=== PATIENT | male | born 1945 | race Caucasian/White ===

== ENCOUNTER 2022-05-19 10:10 | Outpatient (CLI) | payer MEDICARE, SELFPAY ==
--- NOTE | 2022-05-19 10:42 | ECG_ITS ---
Measurements Intervals [place] Rate: 54 P: 43 IN: 162 QRS: 32 QRSD: 106 T: 246 QT: 420 QTc: 400 Interpretive Statements SINUS BRADYCARDIA WITH OCCASIONAL VENTRICULAR PREMATURE COMPLEXES LOW QRS VOLTAGE IN EXTREMITY LEADS [QRS DEFLECTION < 0.5 mV IN LIMB LEADS] NONSPECIFIC T-WAVE ABNORMALITY NO PREVIOUS ECG AVAILABLE FOR COMPARISON Electronically Signed On 05-19-2022 12:05:53 CDT by Ted Avendaño M.D.
[2022-05-19 11:24] LABS: Albumin Level 4.2 g/dL (3.5-5.1); Estimated Glomerular Filt Rate > 60; Glucose 100 mg/dL (65-110)
== END 2022-05-19 10:11 | disposition home or self-care (01) ==
PROVIDERS: Visit Provider Orthopaedic Surgery
DX: Z01.818 Encounter for other preprocedural examination (principal); M17.11 Unilateral primary osteoarthritis, right knee; R94.31 Abnormal electrocardiogram [ECG] [EKG]
CPT/HCPCS: 36415; 82040; 82565; 82947; 93005

== ENCOUNTER 2022-06-16 09:58 | Outpatient (CLI) | payer MEDICARE, SELFPAY ==
[2022-06-16 11:25] LABS: Basophils Percent Auto 0.5 % (0.2-1.2); Eosinophils Absolute Auto 0.2 K/mm3 (0-0.3); Eosinophils Percent Auto 1.8 % (0-4.4); Hematocrit 49.3 % (42.0-52.0); Hemoglobin 16.7 g/dL (14.0-18.0); Immature Granulocyte Absolute 0.02 K/mm3 (0.00-0.031); Immature Granulocyte Percent A 0.2 % (0-0.5); Lymphocytes Absolute Auto 2.69 K/mm3 (0.9-3.2); Lymphocytes Percent Auto 30.3 % (18.3-44.2); Mean Corpuscular HGB Conc 33.9 g/dl (32-36); Mean Corpuscular Hemoglobin 32.4 pg (26-34); Mean Corpuscular Volume 95.5 fl (80-100); Mean Platelet Volume 11.3 fl (7.4-10.4); Monocytes Absolute Auto 0.7 K/mm3 (0.1-0.6); Monocytes Percent Auto 7.7 % (2.6-8.5); Neutrophils Absolute Auto 5.3 K/mm3 (1.3-6.7); Neutrophils Percent Auto 59.5 % (45.5-73.1); Platelet Count Result 234 k/mm3 (150-375); Red Blood Count 5.16 M/mm3 (4.6-6.20); Red Cell Distribution Width 13.3 % (11.5-14.5); White Blood Count 8.9 K/mm3 (4.5-10.0)
[2022-06-16 11:34] LABS: Urine Cotinine NEGATIVE
== END 2022-06-16 09:59 | disposition home or self-care (01) ==
PROVIDERS: PCP Internal Medicine; Visit Provider Orthopaedic Surgery
DX: Z01.812 Encounter for preprocedural laboratory examination (principal); M17.11 Unilateral primary osteoarthritis, right knee; Z51.81 Encounter for therapeutic drug level monitoring; Z79.899 Other long term (current) drug therapy
CPT/HCPCS: 80307; 83036; 85025; 87081

== ENCOUNTER 2022-07-11 00:10 | Day surgery (SDC) | payer MEDICARE, SELFPAY ==
[2022-06-16 10:14] VITALS: BMI 30.2
--- NOTE | 2022-06-16 10:52 | PC.NURSE ---
Addendum entered by Clau Sotelo RN 06/16/22 10:57: TOTAL JOINT CLASS 07/05/22 AT 10AM Addendum entered by Clau Sotelo RN 06/16/22 10:55: HOLD IBUPROFEN 7 DAYS PRE OP. LAST DOSE 07/03/22. MAY TAKE TYLENOL IF NEEDED FOR PAIN Original Note: Report to the Outpatient Waiting Room, entrance under the green pavilion located off [address], at time _0830 on date _07/11/22 . OR Time: _1030 . Time changes happen often and if your time is changed the preop area will call you the afternoon before. - You and your visitor will be asked to self-screen and do not enter if you have any COVID symptoms. - Only one visitor and NO children visitors are allowed at this time. - The patient visitor is requested to leave or wait in car when not with patient due to restrictions. - A mask is required within the hospital. Patients may have clear liquids (water, carbonated beverages, clear teas, apple juice) until 3 hours prior to surgery with a maximum of 20 ounces. - No food from midnight until time of surgery - Infants may have breast milk until 4 hours before surgery, formula 6 hours prior to surgery. - Children will be allowed to drink immediately following surgery. If applicable, please bring a bottle or sippy cup to assist with drinking. Juice, water, soda, and popsicles are readily available. For infants on formula, please bring formula the day of surgery. Pacifiers are allowed. Take the following medications with a SIP of water the morning of surgery: ___PROPRANOLOL Medications to discontinue per physician __ALL VITAMINS AND SUPPLEMENTS 3 DAYS PRE OP Date to take last dose__07/07/22 Please no make-up, nail slovenian, hairspray, perfume, deodorant, or body powder the day of surgery. No jewelry (including any body piercings) or valuables the day of surgery, leave them at home. Please take a shower or bath the night before, or the morning of, surgery with an antibacterial soap. Wear comfortable, loose fitting clothing. Children are encouraged to wear pajamas. - Jewelry must be removed prior to entering the operating room. Rings and piercings that are not removed may be cut off. - The hospital will not accept responsibility for valuables. - Please leave all valuables, including medications, at home the day of surgery. If you are going home after surgery, a licensed equipment driver must drive you home. - NO public transportation without another adult. - We recommend that an adult stay with you for 24 hours following discharge. - We also recommend that you do not drive, make important decision, drink alcoholic beverages, or take any drugs that were not prescribed by your health care provider for at least 24 hours after your discharge time. For Pediatric surgeries, we recommend two adults accompany the child home (only one inside the building at this time). Follow any additional instructions given to you from your surgeon. If you or anyone in your household have experienced Covid symptoms in the past week, please notify your surgeon or the nurse liaison at the phone number below for possible testing. VERBAL AND WRITTEN instructions given to ___PATIENT and asked if any additional questions and then verbalized understanding. Patient advised to call surgeon office or pre surgery nurse liaison [phone] if any additional questions.
[2022-06-16 11:06] VITALS: BP 159/86; PULSE 52; RESP 18; TEMP 37.1; O2SAT 98
[2022-07-11] VITALS (13 sets, daily range): BP systolic 153–177; BP diastolic 66–104; PULSE 49–77; RESP 10–20; TEMP 36.4–37.1; O2SAT 88–100
--- NOTE | ~2022-07-11 | XR_ITS ---
EXAMINATION: XR knee RT 2V DATE: 07/11/2022 13:24 INDICATION: Postoperative evaluation following right total knee arthroplasty. TECHNIQUE: Anteroposterior and lateral views of the right knee were obtained. COMPARISON: 05/18/2022 FINDINGS: Right total knee arthroplasty with patellar resurfacing appears well seated and in near anatomic alig nment. No fractures identified. Surgical drain and expected postoperative subcutaneous and intra-art icular gas. IMPRESSION: 1. Right total knee arthroplasty, negative for postoperative purposes. Reviewed, dictated and finalized at location B.
--- NOTE | 2022-07-11 07:24 | WPDHPUPDATE1 ---
History and Physical Update Update Date/Time: 07/11/22 07:24 History and Physical has been reviewed, including an updated exam of the patient. There are NO changes in the patient's condition. Risks, benefits, and alternatives have been discussed and questions answered. Patient agrees to proceed with procedure.
[2022-07-11] MEDS: ACETAMINOPHEN 500 MG TABLET 1000 MG PO (08:55)
[2022-07-11] MEDS: LACTATED RINGERS 1,000 ML 30 ML IV CONT ×2 (09:00→13:08)
--- NOTE | 2022-07-11 09:33 | WPDANESEPPF ---
Anes - Initial Pre Proc Eval Procedure: Operation Date: 07/11/22 10:30 Proposed Procedures p Right Total Knee Arthroplasty - Humberto Manjarrez MD Date/Time: 07/11/22 09:33 Surgeon: Humberto Manjarrez MD Pre Op Diagnosis: primary OA right knee Patient Data Age: 77 Gender: M Height: 1.75 m Weight: 91.2 kg Last Vital Signs Temp 36.4 C 07/11/22 09:10 Pulse 49 L 07/11/22 09:10 Resp 16 07/11/22 09:10 BP 162/82 H 07/11/22 09:10 Pulse Ox 97 07/11/22 09:10 O2 Del Method Room Air 07/11/22 09:10 Allergies Allergy/AdvReac Type Severity Reaction Status Date / Time meperidine AdvReac Unknown Nausea and Verified 07/11/22 08:44 Vomiting Home Medications Medication Instructions Recorded Confirmed Type apple cider vinegar 500 mg tablet 500 mg PO DAILY 06/16/22 07/11/22 History ascorbic acid (vitamin C) 500 mg 500 mg PO DAILY 06/16/22 07/11/22 History capsule cholecalciferol (vitamin D3) 50 50 mcg PO DAILY 06/16/22 07/11/22 History mcg (2,000 unit) capsule cyanocobalamin (vitamin B-12) 1,000 mcg PO DAILY 06/16/22 07/11/22 History 1,000 mcg tablet magnesium 100 mg capsule 100 mg PO DAILY 06/16/22 07/11/22 History omega-3 fatty acids 1,000 mg PO DAILY 06/16/22 07/11/22 History oxybutynin chloride 10 mg 10 mg PO DAILY 06/16/22 07/11/22 History tablet,extended release 24 hr propranolol 10 mg tablet 10 mg PO DAILY 06/16/22 07/11/22 History pyridoxine (vitamin B6) 100 mg 100 mg PO DAILY 06/16/22 07/11/22 History tablet quercetin 500 mg capsule 500 mg PO DAILY 06/16/22 07/11/22 History saw palmetto 160 mg capsule 160 mg PO DAILY 06/16/22 07/03/22 History vitamin C 30 mg-zinc citrate 1.1 1 tablet PO DAILY 06/16/22 07/03/22 History mg-elderberry 25 mg chewable tablet (Sambucus Elderberry) zinc 50 mg tablet 50 mg PO DAILY 06/16/22 07/03/22 History Patient hx anesthesia problems: none Family hx anesthesia problems: none Results Review: All pre-operative results and documents have been reviewed as part of the pre-operative evaluation. COUNTS INCLUDE 234 BEDS AT THE [facility] Past Medical History Medical History DVT (deep venous thrombosis) H/O cardiovascular stress test Hypertension Lung disease Nephropathy Primary osteoarthritis of right knee Surgical History Surgical History H/O meniscectomy of right knee (~1979) History of appendectomy (~1968) Hx of tonsillectomy (~1953) Family History Family History Mother Heart disease Arthritis Father Arthritis Heart disease Social History Social History Smoking packs per day: 3 Smoking cigarettes per day: 60.0 Years smoked: 4 Smoking pack-years: 12.00 Smoking status: Former smoker Tobacco type: cigarettes Smoking end date: 10/01/69 Additional smoking assessment comments: DENIES ANY FORM OF TOBACCO USE Alcohol intake: never Alcohol use details: 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 Informed Consent: The patient's anesthetic plan and its attendant risks and benefits were discussed with the patient/family/POA. Questions were solicited and answers provided to the satisfaction of the patient/family/POA.
[2022-07-11] MEDS: TRANEXAMIC ACID 1,000MG/ISO100 1,000 MG/100 ML BAG 200 MG IVPB (09:53)
[2022-07-11] MEDS: ceFAZolin 2 GM/D5W 50 ML 2 GM/50 ML BAG IVPB ×2 (10:28→18:10)
[2022-07-11] MEDS: GENTAMICIN BONE CEMENT REFOBACIN 1 EACH TOPICAL (10:53)
[2022-07-11] MEDS: TRANEXAMIC ACID 1,000 MG/10 ML AMPUL 1000 MG IV PUSH (12:35)
[2022-07-11] MEDS: fentaNYL CITRATE INJ (*CRX) 100 MCG/2 ML VIAL 25 MCG IV PUSH ×2 (13:25→13:31)
[2022-07-11] MEDS: SODIUM CHLORIDE 0.9% IV 1,000 ML 125 ML IV CONT (16:01)
[2022-07-11] MEDS: ONDANSETRON INJ 4 MG/2 ML VIAL IV PUSH (16:02)
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
[2022-07-11] MEDS: MELOXICAM 7.5 MG TABLET PO (17:34)
[2022-07-11] MEDS: ASPIRIN 81 MG ENTERIC TABLET PO (17:35)
[2022-07-11] MEDS: SENNA/DOCUSATE SODIUM TABLET 2 TAB PO (17:35)
[2022-07-11] MEDS: FAMOTIDINE 20 MG TABLET PO (20:35)
[2022-07-12] VITALS (7 sets, daily range): BP systolic 112–150; BP diastolic 69–83; PULSE 55–79; RESP 14–18; TEMP 36.4–36.9; O2SAT 94–100
[2022-07-12] MEDS: ceFAZolin 2 GM/D5W 50 ML 2 GM/50 ML BAG IVPB (01:21)
[2022-07-12 05:16] LABS: Basophils Percent Auto 0.3 % (0.2-1.2); Eosinophils Percent Auto 0.1 % (0-4.4); Hemoglobin 13.7 g/dL (14.0-18.0); Immature Granulocyte Absolute 0.04 K/mm3 (0.00-0.031); Immature Granulocyte Percent A 0.3 % (0-0.5); Lymphocytes Absolute Auto 2.23 K/mm3 (0.9-3.2); Lymphocytes Percent Auto 16.7 % (18.3-44.2); Mean Corpuscular HGB Conc 35.1 g/dl (32-36); Mean Corpuscular Hemoglobin 33.8 pg (26-34); Mean Corpuscular Volume 96.3 fl (80-100); Mean Platelet Volume 10.8 fl (7.4-10.4); Monocytes Absolute Auto 1.5 K/mm3 (0.1-0.6); Monocytes Percent Auto 11.4 % (2.6-8.5); Neutrophils Absolute Auto 9.5 K/mm3 (1.3-6.7); Neutrophils Percent Auto 71.2 % (45.5-73.1); Platelet Count Result 177 k/mm3 (150-375); Red Blood Count 4.05 M/mm3 (4.6-6.20); Red Cell Distribution Width 13.2 % (11.5-14.5); White Blood Count 13.4 K/mm3 (4.5-10.0)
[2022-07-12 05:29] LABS: Anion Gap 4 mmol/L (8-16); Blood Urea Nitrogen 17 mg/dL (9-20); Calcium 8.6 mg/dL (8.4-10.2); Carbon Dioxide 28 mmol/L (22-30); Chloride 103 mmol/L (98-107); Estimated CRCL calculation 69 ml/min; Estimated Glomerular Filt Rate > 60; Glucose 118 mg/dL (65-110); Potassium 4.2 mmol/L (3.4-5.0); Sodium 135 mmol/L (137-145)
--- NOTE | 2022-07-12 09:10 | WPDANESPN ---
Anes - Prog Note Post-Op Date/Time: 07/12/22 08:42 Cardiovascular status: normal Respiratory status: normal Airway patency: baseline Mental status: baseline Post-Op hydration status: normal Vital Signs: Last Vital Signs Temp 98.3 F 07/12/22 06:05 Pulse 55 L 07/12/22 06:05 Resp 16 07/12/22 06:05 BP 112/74 07/12/22 06:05 Pulse Ox 97 07/12/22 06:05 O2 Del Method Room Air 07/12/22 00:00 O2 Flow Rate 1 07/11/22 20:00 Pain Score (VAS): 2 I/O: Intake & Output 07/11/22 07/12/22 07/12/22 23:59 07:59 15:59 Intake Total 390 1800 Output Total 190 630 Balance 200 1170 Laboratory Tests 07/12/22 05:11 07/12/22 05:11 07/11/22 07/12/22 07/12/22 08:52 05:11 05:11 WBC 13.4 H RBC 4.05 L Hgb 13.7 L D Hct 39.0 L MCV 96.3 MCH 33.8 MCHC 35.1 RDW 13.2 Plt Count 177 MPV 10.8 H Immature Gran % (Auto) 0.3 Neut % (Auto) 71.2 Lymph % (Auto) 16.7 L [place] % (Auto) 11.4 H Eos % (Auto) 0.1 Baso % (Auto) 0.3 Lymph # (Auto) 2.23 [place] # (Auto) 1.5 H Eos # (Auto) 0.0 Baso # (Auto) 0.0 Abs Immat Gran (auto) 0.04 H Absolute Neuts (auto) 9.5 H Absolute Nucleated RBC 0.0 Nucleated RBC % 0.0 Sodium 135 L Potassium 4.2 Chloride 103 Carbon Dioxide 28 Anion Gap 4 L BUN 17 Creatinine 0.80 Estim Creat Clear Calc 69 Estimated GFR > 60 Glucose 118 H Calcium 8.6 Blood Type B Positive Antibody Screen Negative Post-procedural complaints: none Patient Feedback: Patient satisfied with anesthetic care. Other Findings: PNB receded during the night approx midnight.
[2022-07-12] MEDS: SENNA/DOCUSATE SODIUM TABLET 2 TAB PO (09:52)
[2022-07-12] MEDS: ASPIRIN 81 MG ENTERIC TABLET PO (09:52)
[2022-07-12] MEDS: PROPRANOLOL HCL 10 MG TABLET PO (09:52)
[2022-07-12] MEDS: FAMOTIDINE 20 MG TABLET PO (09:53)
[2022-07-12] MEDS: polyethylene glycoL 3350 17 GM POWD.PACK PO (09:54)
[2022-07-12] MEDS: predniSONE 5 MG TABLET PO (09:54)
[2022-07-12] MEDS: MELOXICAM 7.5 MG TABLET PO (09:54)
== END 2022-07-12 13:25 | disposition home or self-care (01) ==
LOC: ANHSURGERY 12:17 → ANH2MED 14:28
PROVIDERS: Physician Assistant Surgical; PCP Internal Medicine; Visit Provider Orthopaedic Surgery
PROC: (CPT 27447; principal; 2022-07-11 10:30)
DX: M17.11 Unilateral primary osteoarthritis, right knee (principal); I10 Essential (primary) hypertension; N28.9 Disorder of kidney and ureter, unspecified; J98.4 Other disorders of lung; Z86.718 Personal history of other venous thrombosis and embolism; Z87.891 Personal history of nicotine dependence
CPT/HCPCS: 27447; 36415; 73560; 80048; 80307; 83036; 85025; 86850; 86900; 86901; 87081; 97110; 97116; 97161; 97165; 97530; A9270; C1713; C1776; J0131; J0171; J0690; J1100; J1170; J1885; J2250; J2270; J2405; J2704; J2795; J3010; J7030; J7120; J7512

== ENCOUNTER 2022-08-29 14:55 | Inpatient (IN) | payer MEDICARE, SELFPAY ==
--- NOTE | ~2022-08-29 | US_ITS ---
EXAMINATION: US venous doppler LE RT DATE: 08/30/2022 10:21 INDICATION: Right lower limb edema. TECHNIQUE: Grayscale ultrasound images without and with compression and Doppler ultrasound images of the right lower extremity veins were obtained. COMPARISON: None. FINDINGS: The visualized portions of right common femoral vein, profunda (deep) femoral vein, femoral vein, pop liteal vein, peroneal veins, posterior tibial veins, and greater saphenous vein outflow are patent. T here is thrombus in right popliteal vein. There is a moderate-sized Marshall's cyst. There is a right kn ee joint effusion. IMPRESSION: 1. Deep vein thrombosis involving right popliteal vein. 2. Moderate-sized Marshall's cyst. 3. Right knee joint effusion. Reviewed, dictated and finalized at location A. [facility]
--- NOTE | 2022-08-29 15:07 | ADMGEN ---
This patient, Ricki Li Jr., was admitted to 2 Medical Room 254-01. Patient/family oriented to hospital policies and general routines including ID bracelet, bed and alarms, visiting hours, pain management, procedures, bathroom and other care routines, personal items, smoking policy, room service/diet, and visiting hours. Information on how to activate the Rapid Response Team has been discussed. Patient/Family are encouraged to report perceived risks to care and to ask questions if they do not understand what they are told or what they should do. Direct admit from Dr Manjarrez's office
[2022-08-29 15:57] VITALS: BMI 31.1
[2022-08-29 18:51] LABS: Basophils Percent Auto 0.3 % (0.2-1.2); Eosinophils Percent Auto 0.1 % (0-4.4); Hematocrit 41.9 % (42.0-52.0); Hemoglobin 14.2 g/dL (14.0-18.0); Immature Granulocyte Absolute 0.05 K/mm3 (0.00-0.031); Immature Granulocyte Percent A 0.4 % (0-0.5); Lymphocytes Absolute Auto 1.55 K/mm3 (0.9-3.2); Lymphocytes Percent Auto 12.2 % (18.3-44.2); Mean Corpuscular HGB Conc 33.9 g/dl (32-36); Mean Corpuscular Hemoglobin 32.8 pg (26-34); Mean Corpuscular Volume 96.8 fl (80-100); Mean Platelet Volume 10.7 fl (7.4-10.4); Monocytes Absolute Auto 1.3 K/mm3 (0.1-0.6); Monocytes Percent Auto 9.9 % (2.6-8.5); Neutrophils Absolute Auto 9.8 K/mm3 (1.3-6.7); Neutrophils Percent Auto 77.1 % (45.5-73.1); Platelet Count Result 255 k/mm3 (150-375); Red Blood Count 4.33 M/mm3 (4.6-6.20); White Blood Count 12.7 K/mm3 (4.5-10.0)
--- NOTE | 2022-08-29 19:00 | WPDCN ---
Assessment and Plan Assessment and plan (1) Infection of total right knee replacement: Code(s): T84.53XA - Infection and inflammatory reaction due to internal right knee prosthesis, initial encounter Status: Acute Assessment and Plan: He has been started on empiric cefepime and vancomycin; synovial fluid gram stain has yet to be completed. Culture pending. (2) Hypertension: Code(s): I10 - Essential (primary) hypertension Status: Acute Assessment and Plan: Blood pressures were reviewed and they are stable. Home medications will be reviewed and resumed as appropriate. (3) History of deep vein thrombosis: Code(s): Z86.718 - Personal history of other venous thrombosis and embolism Status: Acute Assessment and Plan: History of DVT in 2017, circumstances unclear. Dopplers ordered to rule out DVT. DVT prophylaxis deferred to primary service. Plan Thank you for allowing us to participate in this patient's care. Please do not hesitate to contact us with any questions. Supervising physician for this medical consultation is Dr. Shanna Roblero. HPI Data of Consult Date/Time: 08/29/22 19:00 Requesting Physician: Humberto Manjarrez MD Consult Narrative Reason for consult: Right knee infection. Narrative: This is a very pleasant 77-year-old male with history of right lower extremity DVT in 2017, hypertension, and osteoarthritis status post right total knee arthroplasty whom the hospitalist service has been consulted for our opinion regarding a right knee infection. He had an elective right knee replacement on 07/11/[address] Manjarrez which was uneventful. Since that time he has been doing well with physical therapy and he has not been needing to use his walker. Over the weekend he started to have pain in the right knee and leg, more so behind the right knee, and it has been significant enough that he has been once again using his walker to avoid putting weight on that right leg. On Sunday he noticed redness and swelling of the right knee and he apparently had a possible fever that night as well. He was seen in office today and had his knee tapped which showed [id number] nucleated cells with 88 neutrophils and he is being admitted in this setting for impaired antibiotics, pending culture. Gram stain is pending. At the time my evaluation the patient is in good spirits and aside from the redness, pain, and swelling he does not have any specific complaints. His appetite has been a bit decreased for the last week but he has not had overt nausea or vomiting. He also denies chills and sweats. He has no history of multidrug resistant organisms. Review of Systems Review of Systems: Twelve systems were reviewed and are negative except for as per HPI. [facility] Past Medical History Medical History (Updated 08/29/22 @ 20:42 by Ruby Urena PA-C) Deep vein thrombosis of right lower extremity (2016) Hypertension Lung disease Primary osteoarthritis of right knee Surgical History Surgical History (Updated 08/29/22 @ 20:40 by Ruby Urena PA-C) History of appendectomy (1968) History of arthroplasty of right knee (07/2022) History of meniscectomy of right knee (1979) History of tonsillectomy (1953) Family History Family History Mother Heart disease Arthritis Father Arthritis Heart disease Social History Social History (Updated 08/29/22 @ 20:40 by Ruby Urena PA-C) Social History: Surrogate medical decision maker: Clau Guillermo, spouse. Code status: Full code. Smoking packs per day: 3 Smoking cigarettes per day: 60.0 Years smoked: 4 Smoking pack-years: 12.00 Smoking status: Former smoker Tobacco type: cigarettes Smoking end date: 10/01/69 Additional smoking assessment comments: DENIES ANY FORM OF TOBACCO USE Alcohol intake: former Alcohol use details: LAST DRINK 1971 RECOVER
[2022-08-29 19:06] LABS: Anion Gap 10 mmol/L (8-16); Blood Urea Nitrogen 19 mg/dL (9-20); Calcium 8.9 mg/dL (8.4-10.2); Carbon Dioxide 28 mmol/L (22-30); Chloride 97 mmol/L (98-107); Estimated CRCL calculation 74 ml/min; Estimated Glomerular Filt Rate > 60; Glucose 152 mg/dL (65-110); Potassium 4.3 mmol/L (3.4-5.0); Sodium 135 mmol/L (137-145)
[2022-08-29 19:36] LABS: CRP 31.8 mg/dL (<1.0)
[2022-08-29 19:55] VITALS: BP 140/74; PULSE 103; RESP 18; TEMP 36.6; O2SAT 100
[2022-08-29 20:00] VITALS: PULSE 103; RESP 18; O2SAT 100
[2022-08-29] MEDS: ACETAMINOPHEN 325 MG TABLET 650 MG PO (21:59)
[2022-08-29] MEDS: CALCIUM CARBONATE (TUMS) 500 MG (200 MG ELEMENTAL) PO (22:00)
[2022-08-30 05:30] VITALS: BP 129/81; PULSE 82; RESP 18; TEMP 36.3; O2SAT 98
[2022-08-30 05:32] LABS: Anion Gap 8 mmol/L (8-16); Blood Urea Nitrogen 19 mg/dL (9-20); Calcium 8.6 mg/dL (8.4-10.2); Carbon Dioxide 28 mmol/L (22-30); Chloride 99 mmol/L (98-107); Estimated CRCL calculation 74 ml/min; Estimated Glomerular Filt Rate > 60; Glucose 117 mg/dL (65-110); Potassium 3.6 mmol/L (3.4-5.0); Sodium 135 mmol/L (137-145)
[2022-08-30] MEDS: ACETAMINOPHEN 325 MG TABLET 650 MG PO (08:44)
--- NOTE | 2022-08-30 09:00 | PM.IMPN ---
Progress Note: A&P Assessment and Plan (1) Infection of total right knee replacement: Code(s): T84.53XA - Infection and inflammatory reaction due to internal right knee prosthesis, initial encounter Status: Acute Assessment and Plan: Presented with right knee swelling and pain right knee is currently swollen and red with warmth continue antibiotic treatments with cefepime and vanc synovial fluid appeared hazy with 46,000 new cells and 88 neutrophils cultures pending surgical intervention scheduled for tomorrow Orthopedics to manage postop care pain medication on board antiemetics on board PT and OT when appropriate (2) Hypertension: Code(s): I10 - Essential (primary) hypertension Status: Acute Assessment and Plan: current blood pressure 129/81 continue propanolol 10 mg daily trend blood pressure adjust medications as appropriate (3) History of deep vein thrombosis: Code(s): Z86.718 - Personal history of other venous thrombosis and embolism Status: Acute Assessment and Plan: History of DVT in 2017, circumstances unclear. Dopplers ordered to rule out DVT. DVT prophylaxis deferred to primary service. Time Spent With Patient Time with patient: Greater than 35 minutes Subjective Date/time seen: 08/30/22899 Interval history: 08/30/22899 Patient was sitting up in bed eating his breakfast. He stated that he is doing okay and denies any chest pain, shortness a breath, nausea, vomiting, diarrhea, constipation, weakness, fatigue. Patient did state that he is having some sharp pain in the top and the bottom of his right knee. His right knee does appear to be swollen and is warm to touch. Patient did state that the swelling and the pain is going down with the antibiotics. Patient also stated that he has been walking with a walker however the pain does increase. Patient is scheduled for an I&D of the right knee for tomorrow. Patient appears comfortable at this time. 08/29/22? 19:00 This is a very pleasant 77-year-old male with history of right lower extremity DVT in 2017, hypertension, and osteoarthritis status post right total knee arthroplasty whom the hospitalist service has been consulted for our opinion regarding a right knee infection. He had an elective right knee replacement on 07/11/[address] Manjarrez which was uneventful. Since that time he has been doing well with physical therapy and he has not been needing to use his walker. Over the weekend he started to have pain in the right knee and leg, more so behind the right knee, and it has been significant enough that he has been once again using his walker to avoid putting weight on that right leg. On Sunday he noticed redness and swelling of the right knee and he apparently had a possible fever that night as well. He was seen in office today and had his knee tapped which showed [id number] nucleated cells with 88 neutrophils and he is being admitted in this setting for impaired antibiotics, pending culture. Gram stain is pending. At the time my evaluation the patient is in good spirits and aside from the redness, pain, and swelling he does not have any specific complaints. His appetite has been a bit decreased for the last week but he has not had overt nausea or vomiting. He also denies chills and sweats. He has no history of multidrug resistant organisms. Review of Systems Review of Systems: All systems reviewed & are unremarkable except as noted in HPI and below Exam Narrative: General: well-nourished, well-appearing 79-year-old female, sitting up in bed, comfortable, NARD Neuro: awake, alert and oriented x4, speech clear, no focal neuro deficits noted HEENMT: normocephalic, atraumatic, EOMI, sclerae anicteric, moist oral mucosa Respiratory: Clear to auscultation bilaterally without crackles, rhonchi or wheezes, nonlabored breathing Cardio: regular rate,
[2022-08-30 14:40] VITALS: BP 125/53; PULSE 83; RESP 16; TEMP 36.7; O2SAT 98
[2022-08-30 16:11] LABS: Basophils Percent Auto 0.4 % (0.2-1.2); Eosinophils Percent Auto 0.6 % (0-4.4); Hematocrit 37.6 % (42.0-52.0); Hemoglobin 12.6 g/dL (14.0-18.0); Immature Granulocyte Absolute 0.06 K/mm3 (0.00-0.031); Immature Granulocyte Percent A 0.5 % (0-0.5); Lymphocytes Percent Auto 15.7 % (18.3-44.2); Mean Corpuscular HGB Conc 33.5 g/dl (32-36); Mean Corpuscular Hemoglobin 32.7 pg (26-34); Mean Corpuscular Volume 97.7 fl (80-100); Mean Platelet Volume 10.6 fl (7.4-10.4); Monocytes Percent Auto 10.2 % (2.6-8.5); Neutrophils Absolute Auto 8.1 K/mm3 (1.3-6.7); Neutrophils Percent Auto 72.6 % (45.5-73.1); Platelet Count Result 245 k/mm3 (150-375); Red Blood Count 3.85 M/mm3 (4.6-6.20); Red Cell Distribution Width 13.2 % (11.5-14.5); White Blood Count 11.2 K/mm3 (4.5-10.0)
[2022-08-30 16:12] LABS: Basophils Absolute Auto 0.1 K/mm3 (0.0-0.1); Eosinophils Absolute Auto 0.1 K/mm3 (0-0.3); Lymphocytes Absolute Auto 1.76 K/mm3 (0.9-3.2); Monocytes Absolute Auto 1.1 K/mm3 (0.1-0.6)
--- NOTE | 2022-08-30 16:21 | PM.PNORT ---
Progress Note: A&P Assessment and Plan (1) Infection of total right knee replacement: Code(s): T84.53XA - Infection and inflammatory reaction due to internal right knee prosthesis, initial encounter Status: Acute (2) Status post total right knee replacement: Code(s): Z96.651 - Presence of right artificial knee joint Status: Acute (3) History of deep vein thrombosis: Code(s): Z86.718 - Personal history of other venous thrombosis and embolism Status: Acute Plan Pain well controlled. Broad spectrum antibiotics started. Examination Afebrile. Vitals stable. WBC 7.6 Knee exam unchanged. Distal wound erythema without drainage. Neuro exam intact. Moderate edema. Popliteal DVT noted. Impression I and D with poly exchange today. Hold heparin drip preop. Cultures pending. Subjective Subjective Date/Time Seen: 08/31/22 07:21 Objective Data Vital Signs Vital Signs: Vital Signs - 24 hr 08/30/22 08:44 08/30/22 14:40 08/30/22 20:02 Temperature 36.7 C 37.2 C Pulse Rate 83 58 L Respiratory Rate 16 18 Blood Pressure 125/53 L 145/83 H Pulse Oximetry 98 98 Oxygen Delivery Room Air 08/30/22 21:20 08/31/22 05:51 Temperature 36.1 C L Pulse Rate 76 Respiratory Rate 18 Blood Pressure 126/53 L Pulse Oximetry 98 Oxygen Delivery Room Air Intake/Output Intake/Output: Intake & Output 08/28/22 08/29/22 08/30/22 08/31/22 23:59 23:59 23:59 23:59 Intake Total 240 1830 200 Output Total 1750 Balance 240 80 200 Meds/Results Medications: Active Medications Generic Name Dose Route Start Last Admin Trade Name Freq PRN Reason Stop Dose Admin Docusate Sodium 100 mg 08/30/22 16:35 08/30/22 16:57 Docusate Sodium 100 Mg Capsule PO 100 mg Q12H PRN Administration Constipation Fentanyl Citrate 25 mcg 08/30/22 17:15 Fentanyl Citrate Inj (*Crx) 100 Mcg/2 Ml Vial IV PUSH Q2M PRN Pain Heparin Sodium (Porcine) 6,000 units 08/30/22 15:42 Heparin Sodium 5,000 Units/Ml Vial IV PUSH PRN PRN aPTT less than 55 seconds Heparin Sodium (Porcine) 3,000 units 08/30/22 15:42 08/31/22 02:34 Heparin Sodium 5,000 Units/Ml Vial IV PUSH 3,000 units PRN PRN Administration aPTT 55 - 70 seconds Heparin Sodium/Dextrose 25,000 units in 250 mls @ 16 mls/hr 08/30/22 15:45 08/31/22 02:36 Heparin Sodium/D5w 100 Units/Ml IV CONT 1,600 units/hr .[id number] JESENIA 16 mls/hr Titration Protocol 1,600 UNITS/HR Lactated Ringer's 1,000 mls @ 30 mls/hr 08/30/22 17:15 Lr - Lactated Ringers Iv IV CONT .Q24H JESENIA Lactated Ringer's 1,000 mls @ 30 mls/hr 08/30/22 17:15 Lr - Lactated Ringers Iv IV CONT .Q24H JESENIA Ondansetron HCl 4 mg 08/30/22 17:15 Ondansetron Inj 4 Mg/2 Ml Vial IV PUSH ONCE PRN Nausea Oxycodone HCl 5 mg 08/30/22 17:15 Oxycodone Hcl (*Crx) 5 Mg Tab Ir PO ONCE PRN Pain Radiology Results: ITS Impressions Venous Doppler Study 08/30/22 10:41 IMPRESSION: 1. Deep vein thrombosis involving right popliteal vein. 2. Moderate-sized Marshall's cyst. 3. Right knee joint effusion. Labs Labs: Laboratory Results - last 24 hr 08/30/22 08/30/22 08/31/22 16:03 16:03 01:17 WBC 11.2 H RBC 3.85 L Hgb 12.6 L Hct 37.6 L MCV 97.7 MCH 32.7 MCHC 33.5 RDW 13.2 Plt Count 245 MPV 10.6 H Immature Gran % (Auto) 0.5 Neut % (Auto) 72.6 Lymph % (Auto) 15.7 L [place] % (Auto) 10.2 H Eos % (Auto) 0.6 Baso % (Auto) 0.4 Lymph # (Auto) 1.76 [place] # (Auto) 1.1 H Eos # (Auto) 0.1 Baso # (Auto) 0.1 Abs Immat Gran (auto) 0.06 H Absolute Neuts (auto) 8.1 H Absolute Nucleated RBC 0.0 Nucleated RBC % 0.0 PT 14.2 INR 1.1 APTT 37.0 H 68.8 H Sodium Potassium Chloride Carbon Dioxide Anion Gap BUN Creatinine Estim Creat Clear Calc Estimated GFR G
[2022-08-30 16:48] LABS: INR 1.1; Prothrombin Time 14.2 Seconds (11.1-14.7)
[2022-08-30] MEDS: DOCUSATE SODIUM 100 MG CAPSULE PO (16:57)
--- NOTE | 2022-08-30 17:15 | WPDANESEPPF ---
Anes - Initial Pre Proc Eval Procedure: Operation Date: 08/31/22 10:30 Proposed Procedures p Incision and Drainage Right Knee with Poly Ethylene Exchange - Humberto Manjarrez MD Date/Time: 08/30/22 17:15 Surgeon: Humberto Manjarrez MD Pre Op Diagnosis: Right Knee Infection Patient Data Age: 77 Gender: M Height: 1.7 m Weight: 90.3 kg Last Vital Signs Temp 36.7 C 08/30/22 14:40 Pulse 83 08/30/22 14:40 Resp 16 08/30/22 14:40 BP 125/53 L 08/30/22 14:40 Pulse Ox 98 08/30/22 14:40 O2 Del Method Room Air 08/30/22 08:44 Allergies Allergy/AdvReac Type Severity Reaction Status Date / Time meperidine AdvReac Unknown Nausea and Verified 08/31/22 10:35 Vomiting Home Medications Medication Instructions Recorded Confirmed Type apple cider vinegar 500 mg tablet 500 mg PO DAILY 06/16/22 08/31/22 History ascorbic acid (vitamin C) 500 mg 500 mg PO DAILY 06/16/22 08/31/22 History capsule cholecalciferol (vitamin D3) 50 50 mcg PO DAILY 06/16/22 08/31/22 History mcg (2,000 unit) capsule cyanocobalamin (vitamin B-12) 1,000 mcg PO DAILY 06/16/22 08/31/22 History 1,000 mcg tablet magnesium 100 mg capsule 100 mg PO DAILY 06/16/22 08/31/22 History omega-3 fatty acids 1,000 mg PO DAILY 06/16/22 08/31/22 History oxybutynin chloride 10 mg 10 mg PO DAILY 06/16/22 08/31/22 History tablet,extended release 24 hr propranolol 10 mg tablet 10 mg PO DAILY 06/16/22 08/31/22 History pyridoxine (vitamin B6) 100 mg 100 mg PO DAILY 06/16/22 08/31/22 History tablet quercetin 500 mg capsule 500 mg PO DAILY 06/16/22 08/31/22 History vitamin C 30 mg-zinc citrate 1.1 1 tablet PO DAILY 06/16/22 08/31/22 History mg-elderberry 25 mg chewable tablet ([place] Elderberry) zinc 50 mg tablet 50 mg PO DAILY 06/16/22 08/31/22 History meloxicam 15 mg tablet 15 mg PO DAILY #30 tabs 07/11/22 08/31/22 Rx oxycodone-acetaminophen 5 mg-325 1 - 2 tablet PO Q4-6H PRN pain #30 07/12/22 08/31/22 Rx mg tablet tabs Laboratory Tests 08/29/22 08/29/22 08/30/22 18:43 18:43 05:12 WBC 12.7 K/mm3 H K/mm3 (4.5-10.0) RBC 4.33 M/mm3 L M/mm3 (4.6-6.20) Hgb 14.2 g/dL g/dL (14.0-18.0) Hct 41.9 % L % (42.0-52.0) MCV 96.8 fl fl (80-100) MCH 32.8 pg pg (26-34) MCHC 33.9 g/dl g/dl (32-36) RDW 13.0 % % (11.5-14.5) Plt Count 255 k/mm3 k/mm3 (150-375) MPV 10.7 fl H fl (7.4-10.4) Immature Gran % (Auto) 0.4 % % (0-0.5) Neut % (Auto) 77.1 % H % (45.5-73.1) Lymph % (Auto) 12.2 % L % (18.3-44.2) [place] % (Auto) 9.9 % H % (2.6-8.5) Eos % (Auto) 0.1 % % (0-4.4) Baso % (Auto) 0.3 % % (0.2-1.2) Lymph # (Auto) 1.55 K/mm3 K/mm3 (0.9-3.2) [place] # (Auto) 1.3 K/mm3 H K/mm3 (0.1-0.6) Eos # (Auto) 0.0 K/mm3 K/mm3 (0-0.3) Baso # (Auto) 0.0 K/mm3 K/mm3 (0.0-0.1) Abs Immat Gran (auto) 0.05 K/mm3 H K/mm3 (0.00-0.031) Absolute Neuts (auto) 9.8 K/mm3 H K/mm3 (1.3-6.7) Absolute Nucleated RBC 0.0 K/mm3 K/mm3 (0.0-0.012) Nucleated RBC % 0.0 % % (0.0-0.2) PT INR APTT Sodium 135 mmol/L L mmol/L 135 mmol/L L mmol/L (137-145) (137-145) Potassium 4.3 mmol/L mmol/L 3.6 mmol/L mmol/L (3.4-5.0) (3.4-5.0) Chloride 97 mmol/L L mmol/L 99 mmol/L mmol/L (98-107) (98-107) Carbon Dioxide 28 mmol/L mmol/L 28 mmol/L mmol/L (22-30) (22-30) Anion Gap 10 mmol/L mmol/L 8 mmol/L mmol/L (8-16) (8-16) BUN 19 mg/dL mg/dL 19 mg/dL mg/dL (9-20) (9-20) Creatinine 0.80 mg/dL mg/dL 0.80 mg/dL mg/dL (0.7-1.3) (0.7-1.3) Estim Creat Clear Calc 74 ml/min ml/min 74 ml/min ml/min Estimated GFR > 60 > 60 (59 - ) (59 - ) Glucose 152 mg/dL H mg/dL 117 mg/dL H mg/dL
--- NOTE | 2022-08-30 17:17 | WPDANESPNB ---
Anes - Peripheral Nerve Block Date/Time: 08/30/22 17:17 I have discussed with the patient/family/POA the placement of a peripheral nerve block for post-operative pain management, including associated risks, benefits, complications, and side effects. Alternative methods of post-operative analgesia were detailed. Questions were solicited and answers provided to the satisfaction of the patient/family/POA. Time-Out: A pre-procedural Time-Out was completed immediately before starting the procedure and confirmed: Patient Identification, Site, Procedure, Patient Position and the Availability of Requisite Equipment. Clinical Indications: Acute post-operative pain management requested by the operative surgeon. Nerve Block Insertion Note Anes-nerve block: adductor canal Patient position: supine Skin prep: chlorhexidine Needle: 22 gauge, stimulating, insulated echogenic needle. Needle length: 80 mm Technique: ultrasound Technique comment: in plane Injectate: bupivacaine 0.25% with epi 5 mcg/ml (30cc) Observations: tolerated well Complications: none
[2022-08-30] MEDS: HEPARIN SOD/D5W 100 UNITS/ML 25,000 UNITS/250 ML BAG 14 UNITS IV CONT (17:46)
[2022-08-30] MEDS: HEPARIN SODIUM 5,000 UNITS/ML VIAL 6000 UNITS IV PUSH (17:48)
[2022-08-30 20:02] VITALS: BP 145/83; PULSE 58; RESP 18; TEMP 37.2; O2SAT 98
[2022-08-30] MEDS: ACETAMINOPHEN 500 MG TABLET 1000 MG PO (21:37)
[2022-08-31] VITALS (11 sets, daily range): BP systolic 126–161; BP diastolic 53–91; PULSE 76–105; RESP 12–18; TEMP 36.1–36.6; O2SAT 94–100
[2022-08-31 01:33] LABS: Partial Thromboplastin Time 68.8 SECONDS (22.3-36.8)
[2022-08-31] MEDS: HEPARIN SODIUM 5,000 UNITS/ML VIAL 3000 UNITS IV PUSH (02:34)
--- NOTE | 2022-08-31 06:45 | P.PNIM_ITS ---
Progress Note: A&P Assessment and Plan (1) Infection of total right knee replacement: Code(s): T84.53XA - Infection and inflammatory reaction due to internal right knee prosthesis, initial encounter Status: Acute Assessment and Plan: * Presented with right knee swelling and pain * right knee is currently swollen and red with warmth, unchanged * continue antibiotic treatments with cefepime and vanc * synovial fluid appeared hazy with 46,000 new cells and 88 neutrophils * cultures NGTD * I&D scheduled for today * Orthopedics to manage postop care * pain medication on board * antiemetics on board * PT and OT when appropriate (2) Hypertension: Code(s): I10 - Essential (primary) hypertension Status: Acute Assessment and Plan: * current blood pressure 126/53 * continue propanolol 10 mg daily * trend blood pressure * adjust medications as appropriate (3) Acute DVT (deep venous thrombosis): Code(s): I82.409 - Acute embolism and thrombosis of unspecified deep veins of unspecified lower extremity Status: Acute Assessment and Plan: * History of DVT in 2017, circumstances unclear. * Dopplers found DVT right popliteal vein * Heparin started due to scheduled surgery today * Will need some shelter therapy, however, probably will need lower dose post surgery * DVT per surgery * Anderson check for appropriate therapy (4) Effusion of right knee: Code(s): M25.461 - Effusion, right knee Status: Acute Assessment and Plan: * Ortho aware * Drained upon admission, recurrent * Labs do not indicate any infection * Stable * I&D scheduled for today Plan 15 minutes used for IV start Time Spent With Patient Time with patient: Greater than 35 minutes Subjective Date/time seen: 08/31/22 06:45 Interval history: 08/31/22 0645 patient seems stable today. He stated that he is not getting any sleep. He denies any chest pain, shortness a breath, nausea, vomiting, diarrhea or constipation. He did state that he is having some pain or pressure in his right knee however is worse when he gets up. His knee is still hot and swollen per examination. Patient is scheduled for intervention today with Dr. Manjarrez 08/30/22 0900 Patient was sitting up in bed eating his breakfast. He stated that he is doing okay and denies any chest pain, shortness a breath, nausea, vomiting, diarrhea, constipation, weakness, fatigue. Patient did state that he is having some sharp pain in the top and the bottom of his right knee. His right knee does appear to be swollen and is warm to touch. Patient did state that the swelling and the pain is going down with the antibiotics. Patient also stated that he has been walking with a walker however the pain does increase. Patient is scheduled for an I&D of the right knee for tomorrow. Patient appears comfortable at this time. 08/29/22? 19:00 This is a very pleasant 77-year-old male with history of right lower extremity DVT in 2017, hypertension, and osteoarthritis status post right total knee arthroplasty whom the hospitalist service has been consulted for our opinion regarding a right knee infection. He had an elective right knee replacement on 07/11/[address] Manjarrez which was uneventful. Since that time he has been doing well with physical therapy and he has not been needing to use his walker. Over the weekend he starte
--- NOTE | 2022-08-31 06:45 | PM.IMPN ---
Progress Note: A&P Assessment and Plan (1) Infection of total right knee replacement: Code(s): T84.53XA - Infection and inflammatory reaction due to internal right knee prosthesis, initial encounter Status: Acute Assessment and Plan: Presented with right knee swelling and pain right knee is currently swollen and red with warmth, unchanged continue antibiotic treatments with cefepime and vanc synovial fluid appeared hazy with 46,000 new cells and 88 neutrophils cultures NGTD I&D scheduled for today Orthopedics to manage postop care pain medication on board antiemetics on board PT and OT when appropriate (2) Hypertension: Code(s): I10 - Essential (primary) hypertension Status: Acute Assessment and Plan: current blood pressure 126/53 continue propanolol 10 mg daily trend blood pressure adjust medications as appropriate (3) Acute DVT (deep venous thrombosis): Code(s): I82.409 - Acute embolism and thrombosis of unspecified deep veins of unspecified lower extremity Status: Acute Assessment and Plan: History of DVT in 2017, circumstances unclear. Dopplers found DVT right popliteal vein Heparin started due to scheduled surgery today Will need some oysterman therapy, however, probably will need lower dose post surgery DVT per surgery Anderson check for appropriate therapy (4) Effusion of right knee: Code(s): M25.461 - Effusion, right knee Status: Acute Assessment and Plan: Ortho aware Drained upon admission, recurrent Labs do not indicate any infection Stable I&D scheduled for today Plan 15 minutes used for IV start Time Spent With Patient Time with patient: Greater than 35 minutes Subjective Date/time seen: 08/31/22 06:45 Interval history: 08/31/22 0645 patient seems stable today. He stated that he is not getting any sleep. He denies any chest pain, shortness a breath, nausea, vomiting, diarrhea or constipation. He did state that he is having some pain or pressure in his right knee however is worse when he gets up. His knee is still hot and swollen per examination. Patient is scheduled for intervention today with Dr. Manjarrez 08/30/22 0900 Patient was sitting up in bed eating his breakfast. He stated that he is doing okay and denies any chest pain, shortness a breath, nausea, vomiting, diarrhea, constipation, weakness, fatigue. Patient did state that he is having some sharp pain in the top and the bottom of his right knee. His right knee does appear to be swollen and is warm to touch. Patient did state that the swelling and the pain is going down with the antibiotics. Patient also stated that he has been walking with a walker however the pain does increase. Patient is scheduled for an I&D of the right knee for tomorrow. Patient appears comfortable at this time. 08/29/22? 19:00 This is a very pleasant 77-year-old male with history of right lower extremity DVT in 2017, hypertension, and osteoarthritis status post right total knee arthroplasty whom the hospitalist service has been consulted for our opinion regarding a right knee infection. He had an elective right knee replacement on 07/11/[address] Manjarrez which was uneventful. Since that time he has been doing well with physical therapy and he has not been needing to use his walker. Over the weekend he started to have pain in the right knee and leg, more so behind the right knee, and it has been significant enough that he has been once again using his walker to avoid putting weight on that right leg. On Sunday he noticed redness and swelling of the right knee and he apparently had a possible fever that night as well. He was seen in office today and had his knee tapped which showed [id number] nucleated cells with 88 neutrophils and he is being admitted in this setting for impaired antibiotics, pend
[2022-08-31 07:03] LABS: Basophils Percent Auto 0.4 % (0.2-1.2); Eosinophils Absolute Auto 0.1 K/mm3 (0-0.3); Eosinophils Percent Auto 0.7 % (0-4.4); Hematocrit 39.4 % (42.0-52.0); Hemoglobin 13.3 g/dL (14.0-18.0); Immature Granulocyte Absolute 0.04 K/mm3 (0.00-0.031); Immature Granulocyte Percent A 0.5 % (0-0.5); Lymphocytes Absolute Auto 1.23 K/mm3 (0.9-3.2); Lymphocytes Percent Auto 16.1 % (18.3-44.2); Mean Corpuscular HGB Conc 33.8 g/dl (32-36); Mean Corpuscular Hemoglobin 32.5 pg (26-34); Mean Corpuscular Volume 96.3 fl (80-100); Mean Platelet Volume 10.5 fl (7.4-10.4); Monocytes Absolute Auto 0.9 K/mm3 (0.1-0.6); Monocytes Percent Auto 11.3 % (2.6-8.5); Neutrophils Absolute Auto 5.4 K/mm3 (1.3-6.7); Platelet Count Result 246 k/mm3 (150-375); Red Blood Count 4.09 M/mm3 (4.6-6.20); White Blood Count 7.6 K/mm3 (4.5-10.0)
[2022-08-31 07:14] LABS: Alanine Aminotransferase 101 U/L (6-50); Albumin Level 3.3 g/dL (3.5-5.1); Alkaline Phosphatase 112 U/L (38-126); Anion Gap 6 mmol/L (8-16); Aspartate Amino Transferase 84 U/L (17-59); Bilirubin,Total 0.8 mg/dL (0.2-1.3); Blood Urea Nitrogen 17 mg/dL (9-20); Calcium 8.6 mg/dL (8.4-10.2); Carbon Dioxide 29 mmol/L (22-30); Chloride 100 mmol/L (98-107); Estimated CRCL calculation 85 ml/min; Estimated Glomerular Filt Rate > 60; Glucose 106 mg/dL (65-110); Magnesium 2.1 mg/dL (1.6-2.3); Potassium 3.8 mmol/L (3.4-5.0); Sodium 135 mmol/L (137-145)
--- NOTE | 2022-08-31 07:21 | WPDHPUPDATE1 ---
History and Physical Update Update Date/Time: 08/31/22 07:21 History and Physical has been reviewed, including an updated exam of the patient. There are NO changes in the patient's condition. Risks, benefits, and alternatives have been discussed and questions answered. Patient agrees to proceed with procedure.
[2022-08-31 07:32] LABS: Vancomycin Trough < 5.0 ug/mL (10.0-20.0)
[2022-08-31 08:45] LABS: Partial Thromboplastin Time 35.4 SECONDS (22.3-36.8)
[2022-08-31 09:34] LABS: Hepatitis B Surface Antigen Negative (Negative)
[2022-08-31 09:40] LABS: HAV RESULT Negative (Negative); Hepatitis B Core IgM Result Negative (Negative)
[2022-08-31] MEDS: LACTATED RINGERS 1,000 ML 30 ML IV CONT (09:45)
[2022-08-31 09:52] LABS: Hepatitis C Virus Antibody Negative (Negative)
--- NOTE | 2022-08-31 12:28 | PC.NURSE ---
[employer] spoke with Ed in pharmacy who reports IV antibiotic doses that appeared to be missed were in fact not listed on the emar profile as there was a error in the system. IT was contacted by pharmacy error was fixed and medications were restarted. Incident report to be completed by pharmacy per Ed.
[2022-08-31] MEDS: SODIUM CHLORIDE 0.9% IV 1,000 ML 125 ML IV CONT (15:24)
[2022-08-31] MEDS: SENNA/DOCUSATE SODIUM TABLET 2 TAB PO (16:42)
--- NOTE | 2022-08-31 18:14 | W.PM.PROC2 ---
Procedure Note - Detailed Date of Procedure 08/31/22 Pre-op Diagnosis Right knee acute prosthetic joint infection. Status post total knee arthroplasty. Post-op Diagnosis Same Procedure Performed Irrigation and debridement of right infected total knee arthroplasty with polyethylene insert exchange. Surgeon Humberto Manjarrez MD Anesthesia General Indications Patient presented 6 weeks status post total knee arthroplasty with 2 day history of severe pain swelling and redness of the knee. Low-grade fevers. Aspiration in the office revealed gross purulence. He was previously recovering very well without early postoperative complications. Findings Gross purulence. Tissue quality good except for some tissue damage at the soft tissues near the proximal medial tibia. Complete debridement and necessary synovectomy performed. Copious lavage with 9 L normal saline and treatment with povidone iodine, hydrogen peroxide solution. Also chlorhexidine wash. Tissues looked very healthy and closed without undue tension. Description of Procedure Preoperative antibiotics were maintained as directed by the Infectious Disease pharmacist. General anesthetic was administered. The knee was prepped and draped in the usual sterile fashion with a well-padded tourniquet high on the thigh. The limb was elevated and the tourniquet inflated to 300 mmHg for 1 hour. The previous incision was opened. The fascia was disrupted at the inferior aspect of the wound at the proximal tibia. There was a bit more tissue damage in this area. The remainder of the knee showed hyperemia and mild proliferative synovium but otherwise was fairly healthy in appearance. The gross purulence was removed and some of the loose necrotic tissue debrided. Complete synovectomy was performed where needed. Careful debridement of all necrotic and infected tissue was performed. Brushing was used with the soft bristle brush. Careful attention was paid to the implants themselves to clean as well as possible. The polyethylene liner was removed, and particular attention was paid to the posterior capsule. Multiple tissue cultures were taken during the procedure. The knee was soaked for 5 minutes with dilute chlorhexidine. Then copiously irrigated again. The knee was also soaked with povidone-iodine peroxide dilute mixture. This was again copiously irrigated. The knee was carefully redraped. A new table of clean instruments was used. All staff changed gloves and gown. The 10 mm polyethylene was replaced. The knee was again soaked with dilute Betadine for 3 minutes. The wound was again irrigated. Closure was performed with interrupted monofilament PDS suture. Multiple layers starting with #2 PDS, and ending with 2-0 PDS was used. The skin was closed with sergio. The skin and sergio were painted with a thin coat of Betadine. Xeroform gauze was used. The wound was not closed excessively tight to allow for some drainage and limit suture burden. One deep drain was used. The tourniquet was released prior to skin closure. Sterile bulky dressing was applied. Knee immobilizer placed. Patient extubated and brought to the recovery room in stable condition. Estimated blood loss 150 mL. Implants 10 mm X3 Deonna posterior stabilized polyethylene insert. Estimated Blood Loss -150.0 Tourniquet Time 60 Urine Output 550 Drains Yes Packing No Pathology Yes Complications No immediate complications Condition Stable Disposition PACU [facility] Billing Surgery - Charge Forward: Surgery Billing
[2022-08-31 20:34] LABS: Partial Thromboplastin Time 33.5 SECONDS (22.3-36.8)
[2022-08-31] MEDS: HEPARIN SOD/D5W 100 UNITS/ML 25,000 UNITS/250 ML BAG 15 UNITS IV CONT (21:29)
[2022-09-01 03:07] VITALS: BP 143/80; PULSE 76; RESP 18; TEMP 35.9; O2SAT 95
[2022-09-01 03:55] LABS: Basophils Percent Auto 0.2 % (0.2-1.2); Hematocrit 35.4 % (42.0-52.0); Hemoglobin 12.1 g/dL (14.0-18.0); Immature Granulocyte Absolute 0.06 K/mm3 (0.00-0.031); Immature Granulocyte Percent A 0.5 % (0-0.5); Lymphocytes Absolute Auto 1.19 K/mm3 (0.9-3.2); Lymphocytes Percent Auto 10.9 % (18.3-44.2); Mean Corpuscular HGB Conc 34.2 g/dl (32-36); Mean Corpuscular Hemoglobin 32.6 pg (26-34); Mean Corpuscular Volume 95.4 fl (80-100); Mean Platelet Volume 10.3 fl (7.4-10.4); Monocytes Absolute Auto 0.9 K/mm3 (0.1-0.6); Neutrophils Absolute Auto 8.8 K/mm3 (1.3-6.7); Neutrophils Percent Auto 80.4 % (45.5-73.1); Platelet Count Result 323 k/mm3 (150-375); Red Blood Count 3.71 M/mm3 (4.6-6.20); Red Cell Distribution Width 12.9 % (11.5-14.5); White Blood Count 10.9 K/mm3 (4.5-10.0)
[2022-09-01 04:05] LABS: Alanine Aminotransferase 99 U/L (6-50); Albumin Level 3.1 g/dL (3.5-5.1); Alkaline Phosphatase 105 U/L (38-126); Anion Gap 6 mmol/L (8-16); Aspartate Amino Transferase 80 U/L (17-59); Bilirubin,Total 0.6 mg/dL (0.2-1.3); Blood Urea Nitrogen 16 mg/dL (9-20); Calcium 8.2 mg/dL (8.4-10.2); Carbon Dioxide 27 mmol/L (22-30); Chloride 102 mmol/L (98-107); Estimated CRCL calculation 86 ml/min; Estimated Glomerular Filt Rate > 60; Glucose 137 mg/dL (65-110); Magnesium 2.1 mg/dL (1.6-2.3); Partial Thromboplastin Time 34.4 SECONDS (22.3-36.8); Potassium 4.1 mmol/L (3.4-5.0); Sodium 135 mmol/L (137-145)
[2022-09-01] MEDS: HEPARIN SODIUM 5,000 UNITS/ML VIAL 6000 UNITS IV PUSH ×2 (04:15→10:12)
[2022-09-01] MEDS: SENNA/DOCUSATE SODIUM TABLET 2 TAB PO ×2 (09:27→17:40)
[2022-09-01] MEDS: polyethylene glycoL 3350 17 GM POWD.PACK PO (09:27)
[2022-09-01 09:59] LABS: Partial Thromboplastin Time 32.8 SECONDS (22.3-36.8)
--- NOTE | 2022-09-01 10:30 | PM.IMPN ---
Progress Note: A&P Assessment and Plan (1) Infection of total right knee replacement: Code(s): T84.53XA - Infection and inflammatory reaction due to internal right knee prosthesis, initial encounter Status: Acute Assessment and Plan: Presented with right knee swelling and pain right knee is currently swollen and red with warmth, unchanged continue antibiotic treatments with cefepime and vanc synovial fluid appeared hazy with 46,000 new cells and 88 neutrophils cultures NGTD I&D completed yesterday, drain is placed with bloody drainage Wound culture grew gram positive cocci in chains Orthopedics to manage postop care pain medication on board antiemetics on board PT and OT when appropriate Will need a PICC line at some point (2) Hypertension: Code(s): I10 - Essential (primary) hypertension Status: Acute Assessment and Plan: current blood pressure 147/73 continue propanolol 10 mg daily trend blood pressure adjust medications as appropriate (3) Acute DVT (deep venous thrombosis): Code(s): I82.409 - Acute embolism and thrombosis of unspecified deep veins of unspecified lower extremity Status: Acute Assessment and Plan: History of DVT in 2017, circumstances unclear. Dopplers found DVT right popliteal vein Heparin DC'd and Xarelto 10mg PO daily started, will need to increase to full dose when ok'd by ortho Will need some custodial therapy, however, probably will need lower dose post surgery DVT per surgery Anderson check for appropriate therapy (4) Effusion of right knee: Code(s): M25.461 - Effusion, right knee Status: Acute Assessment and Plan: Ortho aware Drained upon admission, recurrent Labs do not indicate any infection Stable I&D performed yesterday Time Spent With Patient Time with patient: Greater than 35 minutes Subjective Date/time seen: 09/01/22 1030 Interval history: 09/01/22 1030 Patient was sitting in bed. Patient stated that he was doing better today. He denied any chest pain, shortness a breath, nausea, vomiting, diarrhea, constipation, weakness or fatigue. He did say that his pain was pretty minimal and he felt better. Did collaborate with Dr. Manjarrez and will get a PICC line placed for extended amount of it be antibiotics. Will also start patient on Xarelto 10mg 08/31/22 0645 patient seems stable today. He stated that he is not getting any sleep. He denies any chest pain, shortness a breath, nausea, vomiting, diarrhea or constipation. He did state that he is having some pain or pressure in his right knee however is worse when he gets up. His knee is still hot and swollen per examination. Patient is scheduled for intervention today with Dr. Manjarrez 08/30/22 0900 Patient was sitting up in bed eating his breakfast. He stated that he is doing okay and denies any chest pain, shortness a breath, nausea, vomiting, diarrhea, constipation, weakness, fatigue. Patient did state that he is having some sharp pain in the top and the bottom of his right knee. His right knee does appear to be swollen and is warm to touch. Patient did state that the swelling and the pain is going down with the antibiotics. Patient also stated that he has been walking with a walker however the pain does increase. Patient is scheduled for an I&D of the right knee for tomorrow. Patient appears comfortable at this time. 08/29/22? 19:00 This is a very pleasant 77-year-old male with history of right lower extremity DVT in 2017, hypertension, and osteoarthritis status post right total knee arthroplasty whom the hospitalist service has been consulted for our opinion regarding a right knee infection. He had an elective right knee replacement on 07/11/[address] Manjarrez which was uneventful. Since that time he has been doing well with physical th
--- NOTE | 2022-09-01 10:30 | P.PNIM_ITS ---
Progress Note: A&P Assessment and Plan (1) Infection of total right knee replacement: Code(s): T84.53XA - Infection and inflammatory reaction due to internal right knee prosthesis, initial encounter Status: Acute Assessment and Plan: * Presented with right knee swelling and pain * right knee is currently swollen and red with warmth, unchanged * continue antibiotic treatments with cefepime and vanc * synovial fluid appeared hazy with 46,000 new cells and 88 neutrophils * cultures NGTD * I&D completed yesterday, drain is placed with bloody drainage * Wound culture grew gram positive cocci in chains * Orthopedics to manage postop care * pain medication on board * antiemetics on board * PT and OT when appropriate * Will need a PICC line at some point (2) Hypertension: Code(s): I10 - Essential (primary) hypertension Status: Acute Assessment and Plan: * current blood pressure 147/73 * continue propanolol 10 mg daily * trend blood pressure * adjust medications as appropriate (3) Acute DVT (deep venous thrombosis): Code(s): I82.409 - Acute embolism and thrombosis of unspecified deep veins of unspecified lower extremity Status: Acute Assessment and Plan: * History of DVT in 2017, circumstances unclear. * Dopplers found DVT right popliteal vein * Heparin DC'd and Xarelto 10mg PO daily started, will need to increase to full dose when ok'd by ortho * Will need some snf therapy, however, probably will need lower dose post surgery * DVT per surgery * Anderson check for appropriate therapy (4) Effusion of right knee: Code(s): M25.461 - Effusion, right knee Status: Acute Assessment and Plan: * Ortho aware * Drained upon admission, recurrent * Labs do not indicate any infection * Stable * I&D performed yesterday Time Spent With Patient Time with patient: Greater than 35 minutes Subjective Date/time seen: 09/01/22 1030 Interval history: 09/01/22 1030 Patient was sitting in bed. Patient stated that he was doing better today. He denied any chest pain, shortness a breath, nausea, vomiting, diarrhea, constipation, weakness or fatigue. He did say that his pain was pretty minimal and he felt better. Did collaborate with Dr. Manjarrez and will get a PICC line placed for extended amount of it be antibiotics. Will also start patient on Xarelto 10mg 08/31/22 0645 patient seems stable today. He stated that he is not getting any sleep. He denies any chest pain, shortness a breath, nausea, vomiting, diarrhea or constipation. He did state that he is having some pain or pressure in his right knee however is worse when he gets up. His knee is still hot and swollen per examination. Patient is scheduled for intervention today with Dr. Manjarrez 08/30/22 0900 Patient was sitting up in bed eating his breakfast. He stated that he is doing okay and denies any chest pain, shortness a breath, nausea, vomiting, diarrhea, constipation, weakness, fatigue. Patient did state that he is having some sharp pain in the top and the bottom of his right knee. His right knee does appear to be swollen and is warm to touch. Patient did state that the s welling and the pain is going down with the antibiotics. Patient also stated that he has been walking with a walker however the pain does increase. Patient is scheduled for an I&D of the right knee for t
[2022-09-01 10:54] VITALS: BP 141/75; PULSE 94; RESP 18; TEMP 36.4; O2SAT 95
--- NOTE | 2022-09-01 11:18 | WPDANESPN ---
Anes - Prog Note Post-Op Date/Time: 09/01/22 11:18 Cardiovascular status: normal Respiratory status: normal Airway patency: baseline Mental status: baseline Post-Op hydration status: normal Vital Signs: Last Vital Signs Temp 36.4 C L 09/01/22 10:54 Pulse 94 09/01/22 10:54 Resp 18 09/01/22 10:54 BP 141/75 H 09/01/22 10:54 Pulse Ox 95 09/01/22 10:54 O2 Del Method Room Air 09/01/22 08:00 O2 Flow Rate 10 08/31/22 13:55 Pain Score (VAS): 0 I/O: Intake & Output 08/31/22 09/01/22 09/01/22 23:59 07:59 15:59 Intake Total 990 440 290 Output Total 7868 119 0710 Balance -110 -350 -710 Laboratory Tests 09/01/22 03:49 09/01/22 03:49 08/31/22 09/01/22 09/01/22 19:48 03:49 03:49 WBC 10.9 H RBC 3.71 L Hgb 12.1 L Hct 35.4 L MCV 95.4 MCH 32.6 MCHC 34.2 RDW 12.9 Plt Count 323 MPV 10.3 Immature Gran % (Auto) 0.5 Neut % (Auto) 80.4 H Lymph % (Auto) 10.9 L Marion % (Auto) 8.0 Eos % (Auto) 0.0 Baso % (Auto) 0.2 Lymph # (Auto) 1.19 Marion # (Auto) 0.9 H Eos # (Auto) 0.0 Baso # (Auto) 0.0 Abs Immat Gran (auto) 0.06 H Absolute Neuts (auto) 8.8 H Absolute Nucleated RBC 0.0 Nucleated RBC % 0.0 APTT 33.5 Sodium 135 L Potassium 4.1 Chloride 102 Carbon Dioxide 27 Anion Gap 6 L BUN 16 Creatinine 0.70 Estim Creat Clear Calc 86 Estimated GFR > 60 Glucose 137 H Calcium 8.2 L Magnesium 2.1 Total Bilirubin 0.6 AST 80 H ALT 99 H Alkaline Phosphatase 105 Total Protein 6.0 L Albumin 3.1 L 09/01/22 09/01/22 03:49 09:33 WBC RBC Hgb Hct MCV MCH MCHC RDW Plt Count MPV Immature Gran % (Auto) Neut % (Auto) Lymph % (Auto) Marion % (Auto) Eos % (Auto) Baso % (Auto) Lymph # (Auto) Marion # (Auto) Eos # (Auto) Baso # (Auto) Abs Immat Gran (auto) Absolute Neuts (auto) Absolute Nucleated RBC Nucleated RBC % APTT 34.4 32.8 Sodium Potassium Chloride Carbon Dioxide Anion Gap BUN Creatinine Estim Creat Clear Calc Estimated GFR Glucose Calcium Magnesium Total Bilirubin AST ALT Alkaline Phosphatase Total Protein Albumin Microbiology 08/31/22 11:58 Knee Right Wound Culture - Preliminary 08/31/22 11:57 Knee Right Wound Culture - Preliminary 08/31/22 11:55 Knee Right Wound Culture - Preliminary Post-procedural complaints: none Patient Feedback: Patient satisfied with anesthetic care.
--- NOTE | 2022-09-01 11:33 | PCOTNOTE ---
Attempted to see pt. for occupational therapy evaluation. Pt. is currently with emergency services director.Nursing aware. Following.
[2022-09-01] MEDS: HEPARIN SOD/D5W 100 UNITS/ML 25,000 UNITS/250 ML BAG 21 UNITS IV CONT (12:31)
[2022-09-01 14:00] VITALS: BP 147/73; PULSE 85; RESP 16; TEMP 36.3; O2SAT 97
[2022-09-01] MEDS: RIVAROXABAN 10 MG TABLET PO (17:40)
[2022-09-01 19:11] LABS: Vancomycin Trough 13.6 ug/mL (10.0-20.0)
[2022-09-01 19:41] VITALS: BP 142/80; PULSE 114; RESP 20; TEMP 36.3; O2SAT 100
[2022-09-01 23:28] VITALS: BP 118/63; PULSE 80; RESP 18; TEMP 35.9; O2SAT 94
[2022-09-02 05:16] VITALS: BP 147/90; PULSE 68; RESP 18; TEMP 35.7; O2SAT 100
[2022-09-02 06:27] LABS: Estimated CRCL calculation 86 ml/min; Estimated Glomerular Filt Rate > 60
[2022-09-02 06:37] LABS: Vancomycin Trough 14.1 ug/mL (10.0-20.0)
[2022-09-02] MEDS: polyethylene glycoL 3350 17 GM POWD.PACK PO (08:05)
[2022-09-02] MEDS: SENNA/DOCUSATE SODIUM TABLET 2 TAB PO ×2 (08:05→17:28)
[2022-09-02 10:00] VITALS: BP 127/77; PULSE 84; RESP 18; TEMP 36.5; O2SAT 100
[2022-09-02 10:26] LABS: Basophils Percent Auto 0.4 % (0.2-1.2); Eosinophils Absolute Auto 0.1 K/mm3 (0-0.3); Eosinophils Percent Auto 1.6 % (0-4.4); Hematocrit 33.7 % (42.0-52.0); Hemoglobin 11.4 g/dL (14.0-18.0); Immature Granulocyte Absolute 0.05 K/mm3 (0.00-0.031); Immature Granulocyte Percent A 0.7 % (0-0.5); Lymphocytes Absolute Auto 2.03 K/mm3 (0.9-3.2); Lymphocytes Percent Auto 28.8 % (18.3-44.2); Mean Corpuscular HGB Conc 33.8 g/dl (32-36); Mean Corpuscular Hemoglobin 32.3 pg (26-34); Mean Corpuscular Volume 95.5 fl (80-100); Mean Platelet Volume 10.5 fl (7.4-10.4); Monocytes Absolute Auto 0.8 K/mm3 (0.1-0.6); Monocytes Percent Auto 11.8 % (2.6-8.5); Neutrophils Percent Auto 56.7 % (45.5-73.1); Platelet Count Result 328 k/mm3 (150-375); Red Blood Count 3.53 M/mm3 (4.6-6.20); Red Cell Distribution Width 13.1 % (11.5-14.5); White Blood Count 7.1 K/mm3 (4.5-10.0)
[2022-09-02 10:32] LABS: Alanine Aminotransferase 135 U/L (6-50); Albumin Level 2.8 g/dL (3.5-5.1); Alkaline Phosphatase 82 U/L (38-126); Anion Gap 4 mmol/L (8-16); Aspartate Amino Transferase 90 U/L (17-59); Bilirubin,Total 0.4 mg/dL (0.2-1.3); Blood Urea Nitrogen 16 mg/dL (9-20); Calcium 8.3 mg/dL (8.4-10.2); Carbon Dioxide 26 mmol/L (22-30); Chloride 105 mmol/L (98-107); Estimated CRCL calculation 86 ml/min; Estimated Glomerular Filt Rate > 60; Glucose 89 mg/dL (65-110); Magnesium 2.1 mg/dL (1.6-2.3); Potassium 3.9 mmol/L (3.4-5.0); Sodium 135 mmol/L (137-145)
[2022-09-02] MEDS: ARTIFICIAL TEARS OPHTH SOLN 15 ML BOTTLE 1 DROP EACH EYE (10:33)
--- NOTE | 2022-09-02 10:45 | PM.IMPN ---
Progress Note: A&P Assessment and Plan (1) Infection of total right knee replacement: Code(s): T84.53XA - Infection and inflammatory reaction due to internal right knee prosthesis, initial encounter Status: Acute Assessment and Plan: Presented with right knee swelling and pain right knee is currently swollen and red with warmth, unchanged continue antibiotic treatments with cefepime and vanc, Adjust antibiotics to ceftriaxone 2g Q24H synovial fluid appeared hazy with 46,000 new cells and 88 neutrophils cultures NGTD I&D completed yesterday, drain is placed with bloody drainage Wound culture grew gram group B streptococcus Orthopedics to manage postop care pain medication on board antiemetics on board PT and OT when appropriate Will need a PICC line at some point (2) Hypertension: Code(s): I10 - Essential (primary) hypertension Status: Acute Assessment and Plan: current blood pressure 127/77 continue propanolol 10 mg daily trend blood pressure adjust medications as appropriate (3) Acute DVT (deep venous thrombosis): Code(s): I82.409 - Acute embolism and thrombosis of unspecified deep veins of unspecified lower extremity Status: Acute Assessment and Plan: History of DVT in 2017, circumstances unclear. Dopplers found DVT right popliteal vein Heparin DC'd and Xarelto 10mg PO daily started, will need to increase to full dose when ok'd by ortho Will need some half-way therapy, however, probably will need lower dose post surgery DVT per surgery Anderson check for appropriate therapy (4) Effusion of right knee: Code(s): M25.461 - Effusion, right knee Status: Acute Assessment and Plan: Ortho aware Drained upon admission, recurrent Labs do not indicate any infection Stable I&D performed yesterday Plan CBC and CMP weekly for 6 weeks Time Spent With Patient Time with patient: Greater than 35 minutes Subjective Date/time seen: 09/02/22 10:45 Interval history: 09/02/22 1045 Patient state that he is doing ok. His pain is very minimal. He denies any chest pain, shortness of breath, nausea, vomiting, diarrhea, weakness, fatigue. Drain has been removed. 09/01/22 1030 Patient was sitting in bed. Patient stated that he was doing better today. He denied any chest pain, shortness a breath, nausea, vomiting, diarrhea, constipation, weakness or fatigue. He did say that his pain was pretty minimal and he felt better. Did collaborate with Dr. Manjarrez and will get a PICC line placed for extended amount of it be antibiotics. Will also start patient on Xarelto 10mg 08/31/22 0645 patient seems stable today. He stated that he is not getting any sleep. He denies any chest pain, shortness a breath, nausea, vomiting, diarrhea or constipation. He did state that he is having some pain or pressure in his right knee however is worse when he gets up. His knee is still hot and swollen per examination. Patient is scheduled for intervention today with Dr. Manjarrez 08/30/22 0900 Patient was sitting up in bed eating his breakfast. He stated that he is doing okay and denies any chest pain, shortness a breath, nausea, vomiting, diarrhea, constipation, weakness, fatigue. Patient did state that he is having some sharp pain in the top and the bottom of his right knee. His right knee does appear to be swollen and is warm to touch. Patient did state that the swelling and the pain is going down with the antibiotics. Patient also stated that he has been walking with a walker however the pain does increase. Patient is scheduled for an I&D of the right knee for tomorrow. Patient appears comfortable at this time. 08/29/22? 19:00 This is a very pleasant 77-year-old male with history of right lower extremity DVT in 2017, hypertension, and osteoarthritis status
--- NOTE | 2022-09-02 10:45 | P.PNIM_ITS ---
Progress Note: A&P Assessment and Plan (1) Infection of total right knee replacement: Code(s): T84.53XA - Infection and inflammatory reaction due to internal right knee prosthesis, initial encounter Status: Acute Assessment and Plan: * Presented with right knee swelling and pain * right knee is currently swollen and red with warmth, unchanged * continue antibiotic treatments with cefepime and vanc, Adjust antibiotics to ceftriaxone 2g Q24H * synovial fluid appeared hazy with 46,000 new cells and 88 neutrophils * cultures NGTD * I&D completed yesterday, drain is placed with bloody drainage * Wound culture grew gram group B streptococcus * Orthopedics to manage postop care * pain medication on board * antiemetics on board * PT and OT when appropriate * Will need a PICC line at some point (2) Hypertension: Code(s): I10 - Essential (primary) hypertension Status: Acute Assessment and Plan: * current blood pressure 127/77 * continue propanolol 10 mg daily * trend blood pressure * adjust medications as appropriate (3) Acute DVT (deep venous thrombosis): Code(s): I82.409 - Acute embolism and thrombosis of unspecified deep veins of unspecified lower extremity Status: Acute Assessment and Plan: * History of DVT in 2017, circumstances unclear. 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 His pain is very minimal. He denies any chest pain, shortness of breath, nausea, vomiting, diarrhea, weakness, fatigue. Drain has been removed. 09/01/22 1030 Patient was sitting in bed. Patient stated that he was doing better today. He denied any chest pain, shortness a breath, nausea, vomiting, diarrhea, constipation, weakness or fatigue. He did say that his pain was pretty minimal and he felt better. Did collaborate with Dr. Manjarrez and will get a PICC line placed for extended amount of it be antibiotics. Will also start patient on Xarelto 10mg 08/31/22 0645 patient seems stable today. He stated that he is not getting any sleep. He denies any chest pain, shortness a breath, nausea, vomiting, diarrhea or constipation. He did state that he is having some pain or pressure in his right knee however is worse when he gets up. His knee is still hot and swollen per examination. Patient is scheduled for intervention today with Dr. Manjarrez 08/30/22 0900 Patient was sitting up in bed eating his breakfast. He stated that he is doing okay and denies any chest pain, shortness a breath, nausea, vomiting, diarrhea, constipation, weakness, fatigue. Patient did state that he is having some sharp pain in the top and the bottom of h
[2022-09-02 14:11] VITALS: BP 134/89; PULSE 80; RESP 18; TEMP 35.8; O2SAT 98
--- NOTE | 2022-09-02 15:57 | PM.PNORT ---
Progress Note: A&P Assessment and Plan (1) Infection of total right knee replacement: Code(s): T84.53XA - Infection and inflammatory reaction due to internal right knee prosthesis, initial encounter Status: Acute Plan Patient is comfortable. Pain well controlled. Mobilizing well with therapy. Started on 10 mg Xarelto daily. Patient seen and examined yesterday evening as well. The drain was removed. Wound is without drainage. Well approximated. No erythema or warmth. Good quad activity. Calf nontender. No edema. Neurovascular status intact. White blood cell count down to 7.1. Hemoglobin 11.4. Cultures reveal group B strep. Ceftriaxone ordered by the Infectious Disease pharmacist. He will need CBC and CMP weekly. Plan for 6 weeks of IV antibiotics. Will increase his Xarelto to 20 mg after 7 days. No formal therapy as an outpatient. He may start gentle range of motion without the immobilizer. Continue to use the walker with partial weight-bearing. Subjective Subjective Date/Time Seen: 09/02/22 15:57 Objective Data Vital Signs Vital Signs: Vital Signs - 24 hr 09/01/22 19:41 09/01/22 23:28 09/02/22 05:16 Temperature 36.3 C L 35.9 C L 35.7 C L Pulse Rate 114 H 80 68 Respiratory Rate 20 18 18 Blood Pressure 142/80 H 118/63 147/90 H Pulse Oximetry 100 94 100 Oxygen Delivery 09/02/22 10:00 09/02/22 08:00 09/02/22 14:11 Temperature 36.5 C 35.8 C L Pulse Rate 84 80 Respiratory Rate 18 18 Blood Pressure 127/77 134/89 Pulse Oximetry 100 98 Oxygen Delivery Room Air Intake/Output Intake/Output: Intake & Output 08/30/22 08/31/22 09/01/22 09/02/22 23:59 23:59 23:59 23:59 Intake Total 1830 1782 2365 4520 Output Total 1750 1100 2160 800 Balance 80 915 181 2688 Meds/Results Medications: Active Medications Generic Name Dose Route Start Last Admin Trade Name Freq PRN Reason Stop Dose Admin Acetaminophen 650 mg 08/29/22 18:05 08/30/22 08:44 Acetaminophen 325 Mg Tablet PO 650 mg Q6H PRN Administration Mild Pain (1-3) or Fever Artificial Tears 1 drop 09/02/22 11:00 09/02/22 10:33 Artificial Tears Ophth Soln 15 Ml Bottle EACH EYE 1 drop Q6H PRN Administration Dry Eye(s) Calcium Carbonate 200 mg 08/29/22 20:31 08/29/22 22:00 Calcium Carbonate (Tums) 500 Mg (200 Mg Elemental) PO 200 mg Q6H PRN Administration Indigestion Cyclobenzaprine HCl 10 mg 08/31/22 14:46 Cyclobenzaprine Hcl 10 Mg Tablet PO Q8H PRN Spasms Diphenhydramine HCl 25 mg 08/31/22 14:46 Diphenhydramine Hcl Inj 50 Mg/Ml Vial IV PUSH Q6H PRN Itching Docusate Sodium 100 mg 08/30/22 16:35 08/30/22 16:57 Docusate Sodium 100 Mg Capsule PO 100 mg Q12H PRN Administration Constipation Ceftriaxone Sodium 2 gm/ 100 mls @ 200 mls/hr 09/02/22 18:00 Sodium Chloride IVPB Q24H JESENIA Naloxone HCl 0.1 mg 08/31/22 14:46 Naloxone Hcl 0.4 Mg/Ml Vial IV PUSH Q2M PRN Opiate Reversal Ondansetron HCl 4 mg 08/31/22 14:46 Ondansetron Inj 4 Mg/2 Ml Vial IV PUSH Q4H PRN Nausea And Vomiting Oxycodone HCl 5 mg 08/31/22 14:46 Oxycodone Hcl (*Crx) 5 Mg Tab Ir PO Q4H PRN Pain Rated 4-6 Oxycodone HCl 10 mg 08/31/22 14:46 Oxycodone Hcl (*Crx) 5 Mg Tab Ir PO Q4H PRN Pain Rated 7-10 Polyethylene Glycol 17 gm 09/01/22 09:00 09/02/22 08:05 Polyethylene Glycol 3350 17 Gm Powd.Pack PO 17 gm QAM JESENIA Administration Rivaroxaban 10 mg 09/01/22 17:00 09/01/22 17:40 Rivaroxaban 10 Mg Tablet PO 10 mg 1700 JESENIA Administration Senna/Docusate Sodium 2 tab 08/31/22 17:00 09/02/22 08:05 Senna/Docusate Sodium Tablet PO 2 tab BID JESENIA Administration Sodium Chloride 10 ml 09/01/22 14:00 09/02/22 13:17 Central Line Flush IV PUSH Not Given Q8HR JESENIA Sodium Chloride 10 ml 09/01/22 13:56 Central Line Flush IV PUSH PRN PRN with TPN bag
[2022-09-02] MEDS: RIVAROXABAN 10 MG TABLET PO (17:28)
[2022-09-02] MEDS: cefTRIAXone 2 GM in SODIUM CHLORIDE 0.9% IV 100 ML 200 ML IVPB (17:53)
[2022-09-02 18:37] VITALS: BP 123/69; PULSE 100; RESP 18; TEMP 36.9; O2SAT 98
[2022-09-02 19:34] VITALS: BP 126/85; PULSE 89; RESP 17; TEMP 36.6; O2SAT 98
[2022-09-02 23:23] VITALS: BP 129/66; PULSE 72; RESP 17; TEMP 36.7; O2SAT 99
[2022-09-03 03:55] VITALS: BP 120/61; PULSE 75; RESP 18; TEMP 36.6; O2SAT 97
--- NOTE | 2022-09-03 08:28 | PCPTNOTE ---
Progression of PT treatment plan: per Dr Manjarrez's progress report: weight bearing of PWB and remove immobilizer for gentle knee ROM. Discussed this with Mary Edwards INTELLIGENCE INTERN and to add to today's PT treatment session.
[2022-09-03] MEDS: SENNA/DOCUSATE SODIUM TABLET 2 TAB PO ×2 (08:33→18:26)
[2022-09-03] MEDS: polyethylene glycoL 3350 17 GM POWD.PACK PO (08:33)
--- NOTE | 2022-09-03 11:00 | PM.IMPN ---
Progress Note: A&P Assessment and Plan (1) Infection of total right knee replacement: Code(s): T84.53XA - Infection and inflammatory reaction due to internal right knee prosthesis, initial encounter Status: Acute Assessment and Plan: Presented with right knee swelling and pain right knee is currently swollen and red with warmth, unchanged continue antibiotic treatments with cefepime and vanc, Adjust antibiotics to ceftriaxone 2g Q24H synovial fluid appeared hazy with 46,000 new cells and 88 neutrophils cultures NGTD I&D completed yesterday, drain is placed with bloody drainage Wound culture grew gram group B streptococcus Orthopedics to manage postop care pain medication on board antiemetics on board PT and OT when appropriate Will need a PICC line at some point (2) Hypertension: Code(s): I10 - Essential (primary) hypertension Status: Acute Assessment and Plan: current blood pressure 126/75 continue propanolol 10 mg daily trend blood pressure adjust medications as appropriate (3) Acute DVT (deep venous thrombosis): Code(s): I82.409 - Acute embolism and thrombosis of unspecified deep veins of unspecified lower extremity Status: Acute Assessment and Plan: History of DVT in 2017, circumstances unclear. Dopplers found DVT right popliteal vein Heparin DC'd and Xarelto 10mg PO daily started, will need to increase to full dose when ok'd by ortho Will need some skilled nursing therapy, however, probably will need lower dose post surgery DVT per surgery Anderson check for appropriate therapy (4) Effusion of right knee: Code(s): M25.461 - Effusion, right knee Status: Acute Assessment and Plan: Ortho aware Drained upon admission, recurrent Labs do not indicate any infection Stable I&D performed yesterday Plan CBC and CMP weekly for 6 weeks Time Spent With Patient Time with patient: Greater than 35 minutes Subjective Date/time seen: 09/03/22 1100 Interval history: 09/03/22 1100 Patient is doing ok. pain is maintaining at a 3-4/10 but is worse with walking. He denies any chest pain, shortness of breath, nausea, vomiting, diarrhea, constipation, weakness or fatigue 09/02/22 1045 Patient state that he is doing ok. His pain is very minimal. He denies any chest pain, shortness of breath, nausea, vomiting, diarrhea, weakness, fatigue. Drain has been removed. 09/01/22 1030 Patient was sitting in bed. Patient stated that he was doing better today. He denied any chest pain, shortness a breath, nausea, vomiting, diarrhea, constipation, weakness or fatigue. He did say that his pain was pretty minimal and he felt better. Did collaborate with Dr. Manjarrez and will get a PICC line placed for extended amount of it be antibiotics. Will also start patient on Xarelto 10mg 08/31/22 0645 patient seems stable today. He stated that he is not getting any sleep. He denies any chest pain, shortness a breath, nausea, vomiting, diarrhea or constipation. He did state that he is having some pain or pressure in his right knee however is worse when he gets up. His knee is still hot and swollen per examination. Patient is scheduled for intervention today with Dr. Manjarrez 08/30/22 0900 Patient was sitting up in bed eating his breakfast. He stated that he is doing okay and denies any chest pain, shortness a breath, nausea, vomiting, diarrhea, constipation, weakness, fatigue. Patient did state that he is having some sharp pain in the top and the bottom of his right knee. His right knee does appear to be swollen and is warm to touch. Patient did state that the swelling and the pain is going down with the antibiotics. Patient also stated that he has been walking with a walker however the pain does increase. Patient is scheduled for an I&D of the right knee f
--- NOTE | 2022-09-03 11:00 | P.PNIM_ITS ---
Progress Note: A&P Assessment and Plan (1) Infection of total right knee replacement: Code(s): T84.53XA - Infection and inflammatory reaction due to internal right knee prosthesis, initial encounter Status: Acute Assessment and Plan: * Presented with right knee swelling and pain * right knee is currently swollen and red with warmth, unchanged * continue antibiotic treatments with cefepime and vanc, Adjust antibiotics to ceftriaxone 2g Q24H * synovial fluid appeared hazy with 46,000 new cells and 88 neutrophils * cultures NGTD * I&D completed yesterday, drain is placed with bloody drainage * Wound culture grew gram group B streptococcus * Orthopedics to manage postop care * pain medication on board * antiemetics on board * PT and OT when appropriate * Will need a PICC line at some point (2) Hypertension: Code(s): I10 - Essential (primary) hypertension Status: Acute Assessment and Plan: * current blood pressure 126/75 * continue propanolol 10 mg daily * trend blood pressure * adjust medications as appropriate (3) Acute DVT (deep venous thrombosis): Code(s): I82.409 - Acute embolism and thrombosis of unspecified deep veins of unspecified lower extremity Status: Acute Assessment and Plan: * History of DVT in 2017, circumstances unclear. 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 pain is maintaining at a 3-4/10 but is worse with walking. He denies any chest pain, shortness of breath, nausea, vomiting, diarrhea, constipation, weakness or fatigue 09/02/22 1045 Patient state that he is doing ok. His pain is very minimal. He denies any chest pain, shortness of breath, nausea, vomiting, diarrhea, weakness, fatigue. Drain has been removed. 09/01/22 1030 Patient was sitting in bed. Patient stated that he was doing better today. He denied any chest pain, shortness a breath, nausea, vomiting, diarrhea, constipation, weakness or fatigue. He did say that his pain was pretty minimal and he felt better. Did collaborate with Dr. Manjarrez and will get a PICC line placed for extended amount of it be antibiotics. Will also start patient on Xarelto 10mg 08/31/22 0645 patient seems stable today. He stated that he is not getting any sleep. He denies any chest pain, shortness a breath, nausea, vomiting, diarrhea or constipation. He did state that he is having some pain or pressure in his right knee however is worse when he gets up. His knee is still hot and swollen per examination. Patient is scheduled for intervention today with Dr. Manjarrez 08/30/22 0900 Patient was sitting up in bed eating his breakfast. He
[2022-09-03 14:00] VITALS: BP 126/75; PULSE 89; RESP 18; TEMP 36.3; O2SAT 100
[2022-09-03 18:00] VITALS: BP 129/90; PULSE 93; RESP 18; TEMP 36.3; O2SAT 100
[2022-09-03] MEDS: RIVAROXABAN 10 MG TABLET PO (18:26)
[2022-09-03] MEDS: CENTRAL LINE FLUSH 10 ML IV PUSH ×2 (18:27→21:48)
[2022-09-03] MEDS: cefTRIAXone 2 GM in SODIUM CHLORIDE 0.9% IV 100 ML 200 ML IVPB (18:27)
[2022-09-03 19:32] LABS: Vancomycin Trough 6.5 ug/mL (10.0-20.0)
[2022-09-03 20:51] VITALS: BP 123/80; PULSE 90; RESP 18; TEMP 36.6; O2SAT 99
[2022-09-03] MEDS: POLYMYXIN/TRIMETHOPRIM OPHTH 10 ML DROPS 1 DROP EACH EYE (21:44)
[2022-09-03] MEDS: MELATONIN 5 MG TABLET PO (21:44)
[2022-09-04 01:55] VITALS: BP 124/70; PULSE 85; RESP 18; TEMP 36.7; O2SAT 100
[2022-09-04] MEDS: oxyCODONE HCL (*CRX) 5 MG TAB IR PO (05:10)
[2022-09-04] MEDS: CENTRAL LINE FLUSH 10 ML IV PUSH ×2 (05:11→14:49)
[2022-09-04 05:30] VITALS: BP 124/67; PULSE 82; RESP 17; TEMP 36.8; O2SAT 95
[2022-09-04 06:41] LABS: Basophils Percent Auto 0.5 % (0.2-1.2); Eosinophils Absolute Auto 0.1 K/mm3 (0-0.3); Eosinophils Percent Auto 1.7 % (0-4.4); Hematocrit 32.6 % (42.0-52.0); Immature Granulocyte Absolute 0.08 K/mm3 (0.00-0.031); Immature Granulocyte Percent A 1.2 % (0-0.5); Lymphocytes Absolute Auto 1.38 K/mm3 (0.9-3.2); Lymphocytes Percent Auto 21.3 % (18.3-44.2); Mean Corpuscular HGB Conc 33.7 g/dl (32-36); Mean Corpuscular Hemoglobin 32.2 pg (26-34); Mean Corpuscular Volume 95.3 fl (80-100); Mean Platelet Volume 9.9 fl (7.4-10.4); Monocytes Absolute Auto 0.7 K/mm3 (0.1-0.6); Neutrophils Absolute Auto 4.2 K/mm3 (1.3-6.7); Neutrophils Percent Auto 64.3 % (45.5-73.1); Platelet Count Result 335 k/mm3 (150-375); Red Blood Count 3.42 M/mm3 (4.6-6.20); Red Cell Distribution Width 12.7 % (11.5-14.5); White Blood Count 6.5 K/mm3 (4.5-10.0)
[2022-09-04 07:10] LABS: Alanine Aminotransferase 101 U/L (6-50); Albumin Level 2.9 g/dL (3.5-5.1); Alkaline Phosphatase 83 U/L (38-126); Anion Gap 3 mmol/L (8-16); Aspartate Amino Transferase 62 U/L (17-59); Bilirubin,Total 0.4 mg/dL (0.2-1.3); Blood Urea Nitrogen 14 mg/dL (9-20); Calcium 8.2 mg/dL (8.4-10.2); Carbon Dioxide 30 mmol/L (22-30); Chloride 102 mmol/L (98-107); Estimated CRCL calculation 75 ml/min; Estimated Glomerular Filt Rate > 60; Glucose 94 mg/dL (65-110); Magnesium 2.1 mg/dL (1.6-2.3); Potassium 4.4 mmol/L (3.4-5.0); Sodium 135 mmol/L (137-145)
--- NOTE | 2022-09-04 08:15 | PM.IMPN ---
Progress Note: A&P Assessment and Plan (1) Infection of total right knee replacement: Code(s): T84.53XA - Infection and inflammatory reaction due to internal right knee prosthesis, initial encounter Status: Acute Assessment and Plan: Presented with right knee swelling and pain right knee is currently swollen and red with warmth, unchanged antibiotics to ceftriaxone 2g Q24H for minimum of 6 weeks synovial fluid appeared hazy with 46,000 new cells and 88 neutrophils cultures NGTD I&D completed yesterday, drain is placed with bloody drainage Wound culture grew gram group B streptococcus Orthopedics to manage postop care pain medication on board antiemetics on board PT and OT when appropriate PICC line reordered CMP/CBC weekly (2) Hypertension: Code(s): I10 - Essential (primary) hypertension Status: Acute Assessment and Plan: current blood pressure 124/67 continue propanolol 10 mg daily trend blood pressure adjust medications as appropriate (3) Acute DVT (deep venous thrombosis): Code(s): I82.409 - Acute embolism and thrombosis of unspecified deep veins of unspecified lower extremity Status: Acute Assessment and Plan: History of DVT in 2017, circumstances unclear. Dopplers found DVT right popliteal vein Heparin DC'd and Xarelto 10mg PO daily started, will need to increase to full dose when ok'd by ortho Will need some group home therapy, however, probably will need lower dose post surgery DVT per surgery Anderson check for appropriate therapy (4) Effusion of right knee: Code(s): M25.461 - Effusion, right knee Status: Acute Assessment and Plan: Ortho aware Drained upon admission, recurrent Labs do not indicate any infection Stable I&D performed yesterday Plan CBC and CMP weekly for 6 weeks Time Spent With Patient Time with patient: Greater than 35 minutes Subjective Date/time seen: 09/04/22814 Interval history: 09/04/22814 Patient remains stable. Picc line is ordered and should be placed. Antibiotics have been established. Should be able to discharge home with Ortho's approval. Labs remain stable. He denies any chest pain, shortness of breath, nausea, vomiting, diarrhea, and constipation. Spoke with Murphy LOVE from [facility]'s office and is also ok with discharge. Line is being placed. Instructions have been given about further care. 09/03/22 1100 Patient is doing ok. pain is maintaining at a 3-4/10 but is worse with walking. He denies any chest pain, shortness of breath, nausea, vomiting, diarrhea, constipation, weakness or fatigue 09/02/22 1045 Patient state that he is doing ok. His pain is very minimal. He denies any chest pain, shortness of breath, nausea, vomiting, diarrhea, weakness, fatigue. Drain has been removed. 09/01/22 1030 Patient was sitting in bed. Patient stated that he was doing better today. He denied any chest pain, shortness a breath, nausea, vomiting, diarrhea, constipation, weakness or fatigue. He did say that his pain was pretty minimal and he felt better. Did collaborate with Dr. Manjarrez and will get a PICC line placed for extended amount of it be antibiotics. Will also start patient on Xarelto 10mg 08/31/22 0645 patient seems stable today. He stated that he is not getting any sleep. He denies any chest pain, shortness a breath, nausea, vomiting, diarrhea or constipation. He did state that he is having some pain or pressure in his right knee however is worse when he gets up. His knee is still hot and swollen per examination. Patient is scheduled for intervention today with Dr. Manjarrez 08/30/22 0900 Patient was sitting up in bed eating his breakfast. He stated that he is doing okay and denies any chest pain, shortness a breath, nausea, vomiting, diarrhea, constipation, weakn
--- NOTE | 2022-09-04 08:15 | P.PNIM_ITS ---
Progress Note: A&P Assessment and Plan (1) Infection of total right knee replacement: Code(s): T84.53XA - Infection and inflammatory reaction due to internal right knee prosthesis, initial encounter Status: Acute Assessment and Plan: * Presented with right knee swelling and pain * right knee is currently swollen and red with warmth, unchanged * antibiotics to ceftriaxone 2g Q24H for minimum of 6 weeks * synovial fluid appeared hazy with 46,000 new cells and 88 neutrophils * cultures NGTD * I&D completed yesterday, drain is placed with bloody drainage * Wound culture grew gram group B streptococcus * Orthopedics to manage postop care * pain medication on board * antiemetics on board * PT and OT when appropriate * PICC line reordered * CMP/CBC weekly (2) Hypertension: Code(s): I10 - Essential (primary) hypertension Status: Acute Assessment and Plan: * current blood pressure 124/67 * continue propanolol 10 mg daily * trend blood pressure * adjust medications as appropriate (3) Acute DVT (deep venous thrombosis): Code(s): I82.409 - Acute embolism and thrombosis of unspecified deep veins of unspecified lower extremity Status: Acute Assessment and Plan: * History of DVT in 2017, circumstances unclear. * Dopplers found DVT right popliteal vein * Heparin DC'd and Xarelto 10mg PO daily started, will need to increase to full dose when ok'd by ortho * Will need some care home therapy, however, probably will need lower dose post surgery * DVT per surgery * Anderson check for appropriate therapy (4) Effusion of right knee: Code(s): M25.461 - Effusion, right knee Status: Acute Assessment and Plan: * Ortho aware * Drained upon admission, recurrent * Labs do not indicate any infection * Stable * I&D performed yesterday Plan CBC and CMP weekly for 6 weeks Time Spent With Patient Time with patient: Greater than 35 minutes Subjective Date/time seen: 09/04/22814 Interval history: 09/04/22814 Patient remains stable. Picc line is ordered and should be placed. Antibiotics have been established. Should be able to discharge home with Ortho's approval. Labs remain stable. He denies any chest pain, shortness of breath, nausea, vomiting, diarrhea, and constipation. Spoke with Murphy LOVE from [facility]'s office and is also ok with discharge. Line is being placed. Instructions have been given about further care. 09/03/22 1100 Patient is doing ok. pain is maintaining at a 3-4/10 but is worse with walking. He denies any chest pain, shortness of breath, nausea, vomiting, diarrhea, constipation, weakness or fatigue 09/02/22 1045 Patient state that he is doing ok. His pain is very minimal. He denies any chest pain, shortness of breath, nausea, vomiting, diarrhea, weakness, fatigue. Drain has been removed. 09/01/22 1030 Patient was sitting in bed. Patient stated that he was doing better today. He denied any chest pain, shortness a breath, nausea, vomiting, diarrhea, constipation, weakness or fatigue. He did say that his pain was pretty minimal and he felt better. Did collaborate with Dr. Manjarrez and will get a PICC line placed for extended amount of it be antibiotics. Will also start patient on Xarelto 10mg 08/31/22 0645 patient seems stable today. He stated that he is not ge
--- NOTE | 2022-09-04 08:16 | PM.DS ---
DS: Admitting Diagnosis Discharge Date 09/04/22 Admitting Diagnosis Septic total knee arthroplasty. DS: Discharge Diagnosis Discharge Diagnosis Plan Postop day 4: Irrigation and debridement of right infected total knee arthroplasty with polyethylene insert exchange. Original Right TKA done 07/11/22. Patient tolerated procedure well. Did develop a DVT in the right leg. Will send him home on 20 mg Xeralto and have him follow up with his PCP regarding further management. Faxed information to Ortho ID doctor. If not accepted we will follow up with patient. He does have a follow up scheduled in 2 weeks for wound check and staple removal. IV antibiotics ordered. Ceftriaxone for 6 weeks total. PICC line placed today. Will follow CBC and CMP weekly. We had a lengthy discussion regarding postoperative wound care, limitations, expectations, and exercises. Will stop out patient PT at this time. Patient shows good understanding. Ortho instructions: D/C home with IV ceftriaxone. [facility] infusion for IV antibiotics. Follow up in orthopedic office in 2 weeks for staple removal. Follow up with PCP to discuss continued DVT management. Wound Care: Daily dressing changes with Betadine swabs. PT: Partial weight bearing with walker. No outpatient PT at this time. DVT prophylaxis: Xarelto 20 mg. Pain medication: Oxycodone Home Health: [facility]. DS: Summary Hospital Course Reason for hospitalization: Patient was admitted for right septic TKA and underwent a washout. He did develop a DVT. Patient will be sent home on Xeralto and IV antibiotics. Hospital Course: Patient tolerated procedure well. Has had initial PT/OT. Status at Discharge Functional status at discharge: uses cane/walker Overall status at discharge: patient is progressing back to baseline Time Spent with Patient Time attestation: Total time spent providing and/or coordinating discharge services: Exam Narrative: 77-year-old overweight male. Resting comfortably in bed. Alert and oriented x3. No acute distress. Dressing intact. No drainage. Moderate swelling. No ecchymosis. No erythema. No hematoma. Range of motion limited due to pain. Calf nontender. Neurologic status intact. No varicosities. Distal pulses palpable. DS: Data Data Completed and Pending Labs on day of discharge: Labs from last 24 hours 09/04/22 09/04/22 09/03/22 06:12 06:12 18:55 WBC 6.5 RBC 3.42 L Hgb 11.0 L Hct 32.6 L MCV 95.3 MCH 32.2 MCHC 33.7 RDW 12.7 Plt Count 335 MPV 9.9 Immature Gran % (Auto) 1.2 H Neut % (Auto) 64.3 Lymph % (Auto) 21.3 Holmes % (Auto) 11.0 H Eos % (Auto) 1.7 Baso % (Auto) 0.5 Lymph # (Auto) 1.38 Holmes # (Auto) 0.7 H Eos # (Auto) 0.1 Baso # (Auto) 0.0 Abs Immat Gran (auto) 0.08 H Absolute Neuts (auto) 4.2 Absolute Nucleated RBC 0.0 Nucleated RBC % 0.0 Sodium 135 L Potassium 4.4 Chloride 102 Carbon Dioxide 30 Anion Gap 3 L BUN 14 Creatinine 0.80 Estim Creat Clear Calc 75 Estimated GFR > 60 Glucose 94 Calcium 8.2 L Magnesium 2.1 Total Bilirubin 0.4 AST 62 H ALT 101 H Alkaline Phosphatase 83 Total Protein 6.0 L Albumin 2.9 L Vancomycin Trough 6.5 L Preliminary micro results at discharge 08/31/22 11:55 Wound Culture - Preliminary Knee Right Group B Streptococcus isolated 08/31/22 11:57 Wound Culture - Preliminary Knee Right 08/31/22 11:56 Aerobic Culture - Preliminary Knee Right 08/31/22 11:54 Aerobic Culture - Preliminary Knee Right Discharge Plan Discharge Attending physician on discharge: Humberto Manjarrez Consulting providers: Shanna Roblero Discharging Clinician: Xena Chiu Anticipated Discharge Date/Time: 09/04/22 07:44 Patient Disposition: Home Health Service Activity: january shower Diet: as tolerated Wound Care Instructions:
[2022-09-04] MEDS: polyethylene glycoL 3350 17 GM POWD.PACK PO (08:40)
[2022-09-04] MEDS: SENNA/DOCUSATE SODIUM TABLET 2 TAB PO (08:41)
[2022-09-04] MEDS: POLYMYXIN/TRIMETHOPRIM OPHTH 10 ML DROPS 1 DROP EACH EYE (08:41)
[2022-09-04 08:45] VITALS: O2SAT 99
[2022-09-04] MEDS: ACETAMINOPHEN 325 MG TABLET 650 MG PO (08:47)
[2022-09-04 10:00] VITALS: BP 128/72; PULSE 78; RESP 18; TEMP 36.7; O2SAT 98
[2022-09-04] MEDS: LIDOCAINE HCL 1% PF INJ 5 ML VIAL INFILTRATE (11:15)
[2022-09-04 14:00] VITALS: BP 116/82; PULSE 93; RESP 16; TEMP 36.4; O2SAT 98
[2022-09-04] MEDS: cefTRIAXone 2 GM in SODIUM CHLORIDE 0.9% IV 100 ML 200 ML IVPB (14:49)
== END 2022-09-04 16:00 | disposition home health service (06) | DRG 486 ==
PROVIDERS: Nurse Practitioner; Physician Assistant; Admitting Provider Orthopaedic Surgery; PCP Family Medicine; Visit Provider Physician Assistant Surgical
PROC: 0SPC09Z Removal of Liner from Right Knee Joint, Open Approach (ICD-10-PCS; CPT 27487; principal; 2022-08-31 10:30)
DX: T84.53XA Infection and inflammatory reaction due to internal right knee prosthesis, initial encounter (principal); I82.431 Acute embolism and thrombosis of right popliteal vein; B95.1 Streptococcus, group B, as the cause of diseases classified elsewhere; Z96.651 Presence of right artificial knee joint; I10 Essential (primary) hypertension; M25.461 Effusion, right knee; R74.01 Elevation of levels of liver transaminase levels; Z86.718 Personal history of other venous thrombosis and embolism; Z90.49 Acquired absence of other specified parts of digestive tract; Z87.891 Personal history of nicotine dependence
CPT/HCPCS: 36415; 36569; 80048; 80053; 80074; 80202; 82565; 83735; 85025; 85610; 85730; 86140; 87040; 87070; 87075; 87147; 87205; 93971; 97110; 97116; 97161; 97165; 97530; 97535; A9270; C1751; C1776; J0692; J0696; J1100; J1170; J1644; J2250; J2405; J2704; J3010; J3370; J7030; J7120; L1830

== ENCOUNTER 2022-08-29 16:46 | Outpatient (NON) | payer MEDICARE, SELFPAY ==
[2022-08-29 19:58] LABS: Source Synovial Fluid Synovial fluid
[2022-08-29 19:59] LABS: Appearance Synovial Fluid Hazy (Clear); Color Synovial Fluid Yellow (Colorless); RBC Synovial Fluid 513 /uL (0-0)
[2022-08-29 20:06] LABS: Lymphocytes Synovial Fluid 7 %; Monocytes Synovial Fluid 5 %; Neutrophils Synovial Fluid 88 % (0-25)
== END 2022-08-29 16:47 | disposition home or self-care (01) ==
LOC: ANHLAB 16:57
PROVIDERS: PCP Family Medicine; Visit Provider Orthopaedic Surgery
DX: M25.461 Effusion, right knee (principal)
CPT/HCPCS: 87205; 89051

== ENCOUNTER 2022-09-12 10:05 | Outpatient (CLI) | payer MEDICARE, SELFPAY ==
--- NOTE | ~2022-09-12 | XR_ITS ---
Clinical Indication: Disorder of lung PA and lateral views of the chest: Comparison: None Findings: Right-sided PICC line is in satisfactory position, tip in the SVC. The lungs are clear, wit hout evidence of focal consolidation or pleural effusion. Cardiomediastinal silhouette is within nor mal limits. Bones and soft tissues are unremarkable. Impression: Right-sided PICC line in satisfactory position. Clear lungs. Reviewed, dictated and finalized at location [] [facility] Impression: Right-sided PICC line in satisfactory position. Clear lungs.
== END 2022-09-12 10:06 | disposition home or self-care (01) ==
PROVIDERS: PCP Family Medicine; Visit Provider Family Medicine
DX: J98.4 Other disorders of lung (principal)
CPT/HCPCS: 71046

== ENCOUNTER 2022-11-23 14:38 | Outpatient (CLI) | payer MEDICARE, SELFPAY ==
--- NOTE | ~2022-11-23 | XR_ITS ---
XR knee RT min 4V 11/23/2022 14:51 Indication: Right knee effusion Procedure: 4 views right knee Comparison: 11/17/2022 Findings: There is a right total knee arthroplasty. No fracture or traumatic malalignment. Prosthesis well seated. No evidence for loosening. There is prepatellar soft tissue swelling. There is a joint effusion. Impression: 1: Moderate prepatellar soft tissue swelling. Moderate joint effusion. Reviewed, dictated and finalized at location A. [employer] Impression: 1: Moderate prepatellar soft tissue swelling. Moderate joint effusion.
== END 2022-11-23 14:39 | disposition home or self-care (01) ==
LOC: ANHBWCLAB 14:39 → ANHBWCIMG 14:51
PROVIDERS: PCP Family Medicine; Visit Provider Family Medicine
DX: M25.461 Effusion, right knee (principal); Z47.1 Aftercare following joint replacement surgery; M79.89 Other specified soft tissue disorders
CPT/HCPCS: 73564

== ENCOUNTER 2023-01-02 08:58 | Outpatient (CLI) | payer MEDICARE, SELFPAY ==
--- NOTE | 2023-01-02 11:00 | NEURO_ITS ---
Impression: # Complains of numbness of feet. Non-diabetic. # Severe neuropathy. # Abnormal needle/EMG exam. # Clinical correlation recommended. Motor Nerve Conduction Lower Extremities Peroneal Nerve Conduction Velocity (m/sec) Terminal Latency (msec) Response Voltage(mV) Popliteal space-Ankle Ankle Extensor Dig Brevis Popliteal space Ankle Right NR NR NR NR Left NR NR NR NR Tibial Nerve Conduction Velocity (m/sec) Terminal Latency (msec) Response Voltage(mV) Popliteal space-Ankle Ankle-Extensor Dig Brevis Popliteal space Ankle Right NR NR NR NR Left NR NR NR NR F-waves Peroneal Nerve (ms) Tibial Nerve (ms) Right NR NR Left NR NR Sensory Nerve Conduction Lower Extremities Sural Nerve Stimulation Terminal Latency (msec) Ankle Response Voltage (uV) Ankle Response Velocity (m/sec) Right NR NR NR Left NR NR NR Superficial Peroneal Nerve Stimulation Terminal Latency (msec) Ankle Response Voltage (uV) Ankle Response Velocity (m/sec) Right NR NR NR Left NR NR NR Left Right Muscles Examined Fibrillation Fasciculation Scarcity Voltage Duration Left Right Left Right Left Right Left Right Left Right X X Ant Tibialis Reduced Reduced Decreased Decreased X X Gastroc Reduced Reduced Decreased Decreased X X Fibularis Long Reduced Reduced Decreased Decreased X X Flex Dig Long Reduced Reduced Decreased Decreased X X Ext Dig Brev Reduced Reduced Decreased Decreased Abd Hallucis Quadriceps Paraspinals MTDD
== END 2023-01-02 08:59 | disposition home or self-care (01) ==
PROVIDERS: PCP Family Medicine; Visit Provider Family Medicine
DX: G90.9 Disorder of the autonomic nervous system, unspecified (principal); R94.131 Abnormal electromyogram [EMG]
CPT/HCPCS: 95886; 95910

== ENCOUNTER 2023-06-20 09:40 | Observation (INO) | payer MEDICARE, SELFPAY ==
[2023-06-20] VITALS (25 sets, daily range): BP systolic 119–171; BP diastolic 68–130; PULSE 46–82; RESP 9–21; TEMP 36.2–36.4; O2SAT 96–100; BMI 30.5
--- NOTE | ~2023-06-20 | CT_ITS ---
EXAMINATION: CTA chest PE protocol DATE: 06/20/2023 11:24 INDICATION: Chest pain and shortness of breath TECHNIQUE: Computed tomography angiography (CTA) of the chest was performed with 100 mL Omnipaque-350 intravenous contrast timed to evaluate the pulmonary arteries. Coronal maximum intensity projection 3D-reconstructions were created by the technologist. The dose-length product (DLP) was 567.78 mGy-cm. Automated exposure control and iterative reconstruction technique were employed. COMPARISON: None. FINDINGS: The pulmonary arteries are well-opacified. No pulmonary embolism is identified. There is mi ld dependent atelectasis. The lungs are free of focal airspace opacities. No pleural effusion or pneu mothorax. No pathologically enlarged thoracic lymph nodes are identified. The heart size is normal. T here is severe thoracic spondylosis. There is advanced osteoarthritis of the glenohumeral joints. Cy sts of the partially visualized liver measure up to 6 mm. Punctate calcifications in an otherwise nor mal spleen likely represent healed granulomatous disease. IMPRESSION: 1. No pulmonary embolism or acute cardiopulmonary abnormality. Reviewed, dictated and finalized at location B.
--- NOTE | ~2023-06-20 | NM_ITS ---
EXAMINATION: NM shadi stress w perfusion DATE: 06/21/2023 13:08 INDICATION: Chest pain TECHNIQUE: Rest images were obtained following intravenous administration of 9.2 mCi Tc99m tetrofosmi n (Myoview). The patient was infused intravenously with Lexiscan (Regadenoson). Then, 28.3 mCi Tc99m tetrofosmin (Myoview) was administered intravenously, and stress images were obtained in both the sup ine and prone position. Data was reconstructed into short axis and horizontal and vertical long axis SPECT images. Gated SPECT images were also obtained. COMPARISON: None. FINDINGS: There is a moderate severity fixed perfusion defect on the rest images at the mid and basil ar inferior and basilar inferolateral segments consistent with infarct. There is a second separate no nreversible infarct at the apical segment consistent with infarcts. There are surrounding reversible perfusion defects consistent with ischemia involving the intervening apical inferior and apical later al, mid inferolateral segments as well as involving additional portions of the mid and basilar inferi or segments. There is normal left ventricular chamber size and wall motion. Mildly decreased left rosa tricular ejection fraction measures 42%. IMPRESSION: 1. Combination of reversible ischemia and nonreversible infarct extending from the apical to the basi lar inferior and basilar inferolateral segments. 2. Left ventricular ejection fraction measuring 42%. Reviewed, dictated and finalized at location A. IMPRESSION: 1. Combination of reversible ischemia and nonreversible infarct extending from the apical to the basilar inferior and basilar inferolateral segments. 2. Left ventricular ejection fraction measuring 42%.
--- NOTE | ~2023-06-20 | XR_ITS ---
EXAMINATION: XR chest 2V DATE: 06/20/2023 11:16 INDICATION: Left-sided chest pain TECHNIQUE: PA and lateral views of the chest are obtained. COMPARISON: 09/12/2022 FINDINGS: There is mild atelectasis of the lung bases. No pleural effusion or pneumothorax. The cardi omediastinal silhouette is normal. There is severe thoracic spondylosis. IMPRESSION: 1. No acute cardiopulmonary abnormality. Reviewed, dictated and finalized at location B.
--- NOTE | 2023-06-20 09:51 | ECG_ITS ---
Measurements Intervals [place] Rate: 64 P: 38 SD: 153 QRS: 23 QRSD: 112 T: 214 QT: 370 QTc: 382 Interpretive Statements SINUS RHYTHM VENTRICULAR BIGEMINY POSSIBLE LEFT ATRIAL ENLARGEMENT INTRAVENTRICULAR CONDUCTION DELAY BORDERLINE R WAVE PROGRESSION, ANTERIOR LEADS BORDERLINE ST-T WAVE ABNORMALITY- INF/LAT LEADS ABNORMAL ECG VENTRICULAR BIGEMINY NOW PRESENT Electronically Signed On 06-20-2023 10:20:36 CDT by Crow Callejas D.O.
--- NOTE | 2023-06-20 10:13 | ED.GENADULT ---
HPI - General Adult General Chief complaint: Chest Pain Stated complaint: sebt by pmd for ekgs Time Seen by Provider: 06/20/23 09:59 History of Present Illness HPI narrative: Ricki Li is a 77 y/o male who presents with reports of having intermittent dull left sided chest pain with deep breaths for over a month. He states that he went to see his PCP and had 3 EKGs completed and was sent here for further evaluation. He currently denies any chest pain, he states that he always feels a little short of breath but nothing worse then normal today. Denies any recent fever/ chills/ cough/ leg swelling/ edema. He also adds that he took himself off of his blood thinners about a year ago because he found out it was rat poison, he is not sure why he was on the blood thinners, he denies hx of VT/ cardiac stents/ no previous cardiac surgeries. Related Data Home Medications Medication Instructions Recorded Confirmed apple cider vinegar 500 mg tablet 500 mg PO DAILY 06/16/22 06/20/23 ascorbic acid (vitamin C) 500 mg 500 mg PO DAILY 06/16/22 06/20/23 capsule cholecalciferol (vitamin D3) 50 50 mcg PO DAILY 06/16/22 06/20/23 mcg (2,000 unit) capsule cyanocobalamin (vitamin B-12) 1,000 mcg PO DAILY 06/16/22 06/20/23 1,000 mcg tablet magnesium 100 mg capsule 100 mg PO DAILY 06/16/22 06/20/23 omega-3 fatty acids 1,000 mg PO DAILY 06/16/22 06/20/23 oxybutynin chloride 10 mg 10 mg PO DAILY 06/16/22 06/20/23 tablet,extended release 24 hr zinc 50 mg tablet 50 mg PO DAILY 06/16/22 06/20/23 iodine 150 mcg tablet 150 mcg PO DAILY 11/17/22 06/20/23 multivitamin 1 tablet PO DAILY 06/20/23 06/20/23 edlnqcm-mimr-ocvbd-oreg-capryl 1 tablet PO DAILY 06/20/23 06/20/23 Allergies Allergy/AdvReac Type Severity Reaction Status Date / Time meperidine AdvReac Unknown Nausea and Verified 06/20/23 08:31 Vomiting Review of Systems Review of Systems: CONSTITUTIONAL: Denies fever, chills, or sweats. EYES: Denies visual changes, redness, or discharge. ENT: Denies rhinorrhea, congestion, sore throat, or otalgia. CARDIOVASCULAR: Reports intermittent left dull chest pain with deep breaths for over a month RESPIRATORY: Denies cough or dyspnea. GASTROINTESTINAL: Denies abdominal pain, nausea, vomiting, or diarrhea. GENITOURINARY: Denies dysuria or hematuria. SKIN: Denies rash or itching. MUSCULOSKELETAL: Denies back pain, joint pain, or myalgia. NEUROLOGIC: Denies headache, numbness, dizziness, or weakness. PSYCHIATRIC: Denies anxiety or depression. [facility] Past Medical History Medical History Deep vein thrombosis of right lower extremity (2016) Hypertension Lung disease Primary osteoarthritis of right knee Surgical History Surgical History History of appendectomy (1968) History of arthroplasty of right knee (07/2022) History of meniscectomy of right knee (1979) History of tonsillectomy (1953) Family History Family History Mother Heart disease Arthritis Father Arthritis Heart disease Social History Social History (Updated 06/20/23 @ 08:29 by Sia Shen MA) Social History: Surrogate medical decision maker: Clau Li, spouse. Code status: Full code. 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
[2023-06-20] MEDS: ASPIRIN 81 MG CHEWABLE TABLET 324 MG PO (10:32)
[2023-06-20 10:42] LABS: Basophils Percent Auto 0.5 % (0.2-1.2); Eosinophils Absolute Auto 0.2 K/mm3 (0-0.3); Hematocrit 44.3 % (42.0-52.0); Hemoglobin 15.5 g/dL (14.0-18.0); Immature Granulocyte Absolute 0.01 K/mm3 (0.00-0.031); Immature Granulocyte Percent A 0.1 % (0-0.5); Lymphocytes Absolute Auto 2.08 K/mm3 (0.9-3.2); Lymphocytes Percent Auto 26.6 % (18.3-44.2); Mean Corpuscular Hemoglobin 33.2 pg (26-34); Mean Corpuscular Volume 94.9 fl (80-100); Mean Platelet Volume 11.5 fl (7.4-10.4); Monocytes Absolute Auto 0.8 K/mm3 (0.1-0.6); Monocytes Percent Auto 10.3 % (2.6-8.5); Neutrophils Absolute Auto 4.7 K/mm3 (1.3-6.7); Neutrophils Percent Auto 60.5 % (45.5-73.1); Platelet Count Result 200 k/mm3 (150-375); Red Blood Count 4.67 M/mm3 (4.6-6.20); Red Cell Distribution Width 12.9 % (11.5-14.5); White Blood Count 7.8 K/mm3 (4.5-10.0)
[2023-06-20 10:54] LABS: INR 0.9; Prothrombin Time 13.1 Seconds (11.1-14.7)
[2023-06-20 10:55] LABS: Partial Thromboplastin Time 26.3 SECONDS (22.3-36.8)
[2023-06-20 11:01] LABS: Alanine Aminotransferase 22 U/L (6-50); Albumin Level 3.8 g/dL (3.5-5.1); Alkaline Phosphatase 77 U/L (38-126); Anion Gap 5 mmol/L (8-16); Aspartate Amino Transferase 29 U/L (17-59); Blood Urea Nitrogen 25 mg/dL (9-20); Carbon Dioxide 27 mmol/L (22-30); Chloride 104 mmol/L (98-107); Estimated CRCL calculation 76 ml/min; Estimated Glomerular Filt Rate > 60; Glucose 100 mg/dL (65-110); Lipase 84 U/L (23-300); Potassium 4.1 mmol/L (3.4-5.0); Sodium 136 mmol/L (137-145)
[2023-06-20 11:13] LABS: Troponin I < 0.012 ng/mL (0.000-0.034)
[2023-06-20 15:23] LABS: Troponin I < 0.012 ng/mL (0.000-0.034)
--- NOTE | 2023-06-20 16:15 | PM.CNCAR ---
Assessment and Plan Assessment and plan (1) Chest pain: Code(s): R07.9 - Chest pain, unspecified Status: Acute Assessment and Plan: CP on inspiration only. Thus far EKG and troponin are negative. Check 3rd troponin. If troponin negative, obtain lexiscan myoview in AM. Obtain echo. (2) History of deep vein thrombosis: Code(s): Z86.718 - Personal history of other venous thrombosis and embolism Status: Acute Assessment and Plan: Remote history. (3) Hypertension: Code(s): I10 - Essential (primary) hypertension Status: Acute Assessment and Plan: High here but he does not have a diagnosis of this previously. Monitor BP. History of Present Illness History of Present Illness Consult date/time: 06/20/23 16:15 Reason For Visit: sebt by pmd for ekgs Narrative: 77 yr old man presents to ER with chest pain. He has a history of left leg DVT, dyslipidemia, anxiety. Reports he has been having intermittent chest pressure with deep inspiration for 1 month. He went to his PCP today who did an EKG and told him to come to ER. He can walk 3-4 blocks without any problems except bothered by peripheral neuropathy of his legs. Denies orthopnea, PND, dizziness, palpitations. Review of Systems Review of Systems: All systems reviewed & are unremarkable except as noted in HPI and below Constitutional: Constitutional: Reports as per HPI, Denies chills and Denies fever(s) Cardiovascular: Cardiovascular: Reports as per HPI, Reports chest pain and Denies irregular heart rhythm Respiratory: Respiratory: Reports as per HPI and Denies dyspnea Gastrointestinal: Gastrointestinal: Reports as per HPI and Denies abdominal pain Genitourinary: Genitourinary: Reports as per HPI and Denies dysuria Musculoskeletal: Musculoskeletal: Reports as per HPI Neurologic: Reports as per HPI, Denies dizziness, Denies syncope and Reports numbness PMFSH Past Medical History Medical History Deep vein thrombosis of right lower extremity (2017) Hypertension Lung disease Primary osteoarthritis of right knee Surgical History Surgical History History of appendectomy (1968) History of arthroplasty of right knee (07/2022) History of meniscectomy of right knee (1979) History of tonsillectomy (4) Family History Family History Mother Heart disease Arthritis Father Arthritis Heart disease Social History Social History (Updated 06/20/23 @ 08:29 by Sia Shen MA) Social History: Surrogate medical decision maker: Clau Li, spouse. Code status: Full code. 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 Occupation/Education: retired Gender identity (if verbalized by the patient): Male Sexual Orientation (if Verbalized by the Patient): Straight or Heterosexual Spiritual care concerns: No Agree to blood products: Yes Meds Home Medications and Allergies Home Medications Medication Instructions Recorded Joe
[2023-06-20 16:59] LABS: Troponin I < 0.012 ng/mL (0.000-0.034)
--- NOTE | 2023-06-20 17:43 | ADMGEN ---
This patient, Ricki Li Jr., was admitted to IMU Room 201-01. Patient/family oriented to hospital policies and general routines including ID bracelet, bed and alarms, visiting hours, pain management, procedures, bathroom and other care routines, personal items, smoking policy, room service/diet, and visiting hours. Information on how to activate the Rapid Response Team has been discussed. Patient/Family are encouraged to report perceived risks to care and to ask questions if they do not understand what they are told or what they should do.
--- NOTE | 2023-06-20 22:56 | PM.IMHP ---
H&P: HPI History of Present Illness Date/Time: 06/20/23 19:30 Chief Complaint: Chest pain. Narrative: This is a very pleasant 77-year-old male with history of right lower extremity DVT, hypertension, and peripheral neuropathy who presented to the emergency department via private vehicle for evaluation of chest pain. The patient provides the following history. He endorses intermittent, self-limiting dull left anterior chest pain which has been ongoing for the past month. He sees no particular pattern as to when it occurs. At times he will notice the pain with deep inspiration though it has happened simply while lying in bed and when up doing activities. It is occasionally associated with dizziness or shortness of breath. It tends to last upwards of a minute or 2 before resolving without intervention. He was seen at his doctor's office today and had several EKGs which apparently had some changes and he was referred to the emergency department. He denies syncope, sweats, nausea, vomiting, palpitations, sensations of racing heart, calf pain, and significant lower extremity edema. Of note the patient endorses many personal stressors recently. In the ED: Blood pressures have been pretty consistent in the 140s to 150s systolic. Heart rate has ranged from the mid 40s to upper 50s. CMP and CBC were pretty unremarkable. Initial troponin was normal. EKG showed sinus rhythm with ventricular bigeminy and borderline ST T-wave abnormalities in the inferior lateral leads. Chest CTA was negative for pulmonary embolism and acute cardiopulmonary abnormality. He is being admitted in this setting for close monitoring and Cardiology consultation. Review of Systems Review of Systems: Twelve systems were reviewed and are negative except for as per HPI. [facility] Past Medical History Medical History Deep vein thrombosis of right lower extremity (2016) Hypertension Lung disease Primary osteoarthritis of right knee Surgical History Surgical History History of appendectomy (1968) History of arthroplasty of right knee (07/2022) History of meniscectomy of right knee (1979) History of tonsillectomy (1953) Family History Family History Mother Heart disease Arthritis Father Arthritis Heart disease Social History Social History (Updated 06/20/23 @ 23:02 by Ruby Urena PA-C) Social History: Surrogate medical decision maker: Clau Li, spouse. Code status: Full code. Smoking packs per day: 3 Smoking cigarettes per day: 60.0 Years smoked: 4 Smoking pack-years: 12.00 Smoking status: Former smoker Alcohol intake: never Alcohol use details: Last drink was in 1971. Substance use: never Substance use type: does not use Lack of Transportation: No Lack of Food: Never True Current Housing: I Have Housing Concerned About Future Housing: No Difficulty Paying Gas/Electric Bills: No Difficulty Paying for Meds: No Currently Unemployed: No Education: Trade/Vocational Certificate Difficulty w/ Childcare or Family Care: No Living arrangements: with family Additional living arrangements comments: The patient lives with his in [place]. They have 3 children. Occupation/Education: retired Additional occupation/education comments: Retired from the [employer]. Spiritual care concerns: No Agree to blood products: Yes Meds Home Medications and Allergies Home Medications Medication Instructions Recorded Confirmed Type apple cider vinegar 500 mg tablet 500 mg PO DAILY 06/16/22 06/20/23 History ascorbic acid (vitamin C) 500 mg 500 mg PO DAILY 06/16/22 06/20/23 History capsule cholecalciferol (vitamin D3) 50 50 mcg PO DAILY 06/16/22 06/20/23 History mcg (2,000 unit) capsule cyanocobalamin (vitamin B-12) 1,000 mcg PO DAILY
[2023-06-21] VITALS (19 sets, daily range): BP systolic 97–185; BP diastolic 56–117; PULSE 45–89; RESP 16–20; TEMP 36.1–36.6; O2SAT 96–99
--- NOTE | 2023-06-21 | ECHO_ITS ---
Patient Info Name: Ricki Li Age: 77 years : 1945 Gender: Male Ht: 68 in Wt: 203 lbs BSA: 2.13 m2 HR: 53 bpm BP: 153 / 81 mmHg Technical Quality: Fair Exam Date: 06/21/2023 2:18 PM Exam Location: [facility] Room: 201 Patient Status: Inpatient Admit Date: 06/20/2023 Staff Ordering Physician: Crow Callejas DO [employer] Operator: Diana Neely RDCS Attending Provider: Shanna Roblero DO Referring Physician: Júnior HIGGINS; Exam Type: CA echo doppler color flow Study Info Indications - chest pain Complete two-dimensional, color flow and Doppler transthoracic echocardiogram is performed. Summary 1. Complete two-dimensional, color flow and Doppler transthoracic echocardiogram is performed. 2. Left ventricular chamber dimension is normal. 3. Left ventricular systolic function is normal, estimated at 55-60%. 4. The left ventricular diastolic function is grade I diastolic dysfunction. 5. E/e' 10 is mildly elevated. 6. Left atrial chamber dimension is moderately enlarged. 7. Right atrial chamber dimension is mildly enlarged. 8. There is mild aortic valve regurgitation. 9. There is trace mitral valve regurgitation. 10. There is trace tricuspid valve regurgitation. 11. Moderate pulmonary hypertension, estimated pulmonary arterial systolic pressure is 58 mmHg. 12. There is trace pulmonic regurgitation. Left Ventricle E/e' 10 is mildly elevated. Left ventricular chamber dimension is normal. Left ventricular systolic function is normal, estimated at 55-60%. The left ventricular diastolic function is grade I diastolic dysfunction. Right Ventricle Right ventricular systolic function is normal and with normal TAPSE 2.5 cm. Right ventricular chamber dimension is normal. Left Atria Left atrial chamber dimension is moderately enlarged. Right Atria Right atrial chamber dimension is mildly enlarged. Aortic Valve The aortic valve is trileaflet. There is no aortic valve stenosis. There is mild aortic valve regurgitation. Pulmonic Valve There is trace pulmonic regurgitation. Mitral Valve There is no mitral valve stenosis. There is trace mitral valve regurgitation. Tricuspid Valve There is trace tricuspid valve regurgitation. Moderate pulmonary hypertension, estimated pulmonary arterial systolic pressure is 58 mmHg. Pericardium/Pleural There is no pericardial effusion. Inferior Vena Cava Normal inferior vena cava with >50% collapse upon inspiration consistent with normal right atrial pressure, 5 mmHg. Aorta The aortic root size at the sinus of Valsalva is normal. Left Ventricular Outflow Tract Name Value Normal LVOT 2D LVOT Diameter 2.1 cm LVOT Doppler LVOT Peak Gradient 5 mmHg LVOT Mean Gradient 2 mmHg LVOT VTI 21 cm LVOT VTI/AV VTI Ratio 0.7 LVOT Stroke Volume 72 ml LVOT CO 13.8 l/min LVOT CI 6.5 l/min/m2 Pulmonic Valve Name Value Normal -----
--- NOTE | 2023-06-21 | EST_ITS ---
Patient Info Name: Ricki Li Age: 77 years : 1945 Gender: Male Ht: 68 in Wt: 203 lbs BSA: 2.13 m2 Exam Date: 06/21/2023 11:55 AM Exam Location: [facility] Stress Patient Status: Outpatient Admit Date: 06/20/2023 Staff Ordering Physician: Crow Callejas DO Attending Provider: Shanna Roblero DO Exercise Technologist: Leticia Acevedo CT Exercise Physician: Crow Callejas DO Exam Type: CA stress shadi w NM Study Info Indications R07.9 - Chest pain, unspecified A regadenoson stress test was performed. Summary 1. 1. Negative lexiscan stress test for ischemic ST changes by ECG criteria. 2. 2. Baseline hypertension. 3. 3. Nuclear scan to follow and will be reported separately. Please correlate with it. 4. 4. Patient informed of the above results. Protocol: Lexiscan Stress ECG Details Stage: REST Duration (min): 1 min : 5 sec HR (bpm): 61 SBP (mmHg): 143 DBP (mmHg): 92 Stage: REST Duration (min): 8 min : 17 sec HR (bpm): 67 SBP (mmHg): 143 DBP (mmHg): 92 Stage: STAGE 1 Duration (min): 0 min : 59 sec HR (bpm): 67 SBP (mmHg): 143 DBP (mmHg): 92 Stage: RECOVERY Duration (min): 1 min : 0 sec HR (bpm): 85 SBP (mmHg): 157 DBP (mmHg): 106 Stage: RECOVERY Duration (min): 2 min : 0 sec HR (bpm): 82 SBP (mmHg): 157 DBP (mmHg): 106 Stage: RECOVERY Duration (min): 3 min : 0 sec HR (bpm): 84 SBP (mmHg): 136 DBP (mmHg): 104 Stage: RECOVERY Duration (min): 3 min : 41 sec HR (bpm): 81 SBP (mmHg): 136 DBP (mmHg): 104 Rest HR: 67 bpm Peak HR: 88 bpm Rest Sys BP: 140 mmHg Peak Sys BP: 157 mmHg Max Pred HR: 145 bpm % Max Pred HR: 61 % Target HR: 123 bpm Max RPP: 13,816 bpm*mmHg Termination Reason: Completed protocol Cardiac Symptoms: Shortness of breath Total Time: 1 min : 0 sec Rest Hall BP: 75 mmHg Peak Hall BP: 106 mmHg Total Dose: 0.4 mg Resting ECG Sinus rhythm, ventricular bigeminy, cannot r/o septal infarct, borderline ST-T wave in diffuse leads. Stress ECG No ST changes. Arrhythmias None. Report Signatures
[2023-06-21 06:14] LABS: Anion Gap 4 mmol/L (8-16); Blood Urea Nitrogen 20 mg/dL (9-20); Carbon Dioxide 30 mmol/L (22-30); Chloride 102 mmol/L (98-107); Cholesterol 212 mg/dL (0-200); Estimated CRCL calculation 77 ml/min; Estimated Glomerular Filt Rate > 60; Glucose 82 mg/dL (65-110); HDL Direct 35 mg/dL; Magnesium 2.1 mg/dL (1.6-2.3); Potassium 3.8 mmol/L (3.4-5.0); Sodium 136 mmol/L (137-145); Triglycerides 116 mg/dL (<150)
[2023-06-21 06:25] LABS: LDL Cholesterol Direct 144 mg/dL
[2023-06-21 07:33] LABS: Free T4 Free Thyroxine Reflex 1.23 ng/dL (0.78-2.19)
[2023-06-21] MEDS: PROPRANOLOL HCL 10 MG TABLET PO ×2 (08:26→20:15)
--- NOTE | 2023-06-21 08:28 | PM.PNCARD ---
Progress Note: A&P Assessment and Plan (1) Chest pain: Code(s): R07.9 - Chest pain, unspecified Status: Acute Assessment and Plan: CP on inspiration only. MS r/o by serial troponin and EKG. Obtain [employer] myoview this AM. Obtain echo. If above tests are negative, no further cardiac workup is needed. (2) History of deep vein thrombosis: Code(s): Z86.718 - Personal history of other venous thrombosis and embolism Status: Acute Assessment and Plan: Remote history. (3) Hypertension: Code(s): I10 - Essential (primary) hypertension Status: Acute Assessment and Plan: Stable. Was high here but he does not have a diagnosis of this previously. Monitor BP. Subjective Date/time seen: 06/21/23 08:28 Interval history: Reports mild chest pressure with inspiration. No sob. Exam Const: General: cooperative, healthy appearing and comfortable Orientation/consciousness: oriented to person, oriented to place and oriented to time Resp: Auscultation: clear to auscultation bilaterally, no crackles, no rales, no rhonchi and no wheezes Cardio: Rate: regular rate Rhythm: regular rhythm Heart sounds: no murmurs Peripheral pulses: dorsalis pedis present Neuro: General: oriented to person, oriented to place and oriented to time Extrem: Right lower extremity: no edema Left lower extremity: no edema Objective Data Vital Signs Vital Signs: Vital Signs - 24 hr 06/20/23 09:53 06/20/23 09:54 06/20/23 09:59 Temperature 97.6 F Pulse Rate 63 65 56 L Respiratory Rate 20 14 17 Blood Pressure 171/102 H 156/119 H 170/98 H Pulse Oximetry 97 99 98 Oxygen Delivery Room Air 06/20/23 10:01 06/20/23 10:31 06/20/23 11:35 Temperature Pulse Rate 65 52 L 51 L Respiratory Rate 20 19 16 Blood Pressure 171/102 H 135/89 150/108 H Pulse Oximetry 98 96 Oxygen Delivery 06/20/23 12:01 06/20/23 12:16 06/20/23 12:33 Temperature Pulse Rate 48 L 48 L 54 L Respiratory Rate 9 L 15 Blood Pressure 128/79 130/87 138/83 Pulse Oximetry 97 97 Oxygen Delivery 06/20/23 12:46 06/20/23 13:46 06/20/23 14:31 Temperature Pulse Rate 54 L 46 L 48 L Respiratory Rate 15 14 9 L Blood Pressure 119/93 H 152/89 H 149/78 H Pulse Oximetry 100 98 98 Oxygen Delivery 06/20/23 15:01 06/20/23 15:10 06/20/23 15:16 Temperature Pulse Rate 55 L 61 56 L Respiratory Rate 14 17 14 Blood Pressure 169/124 H 170/102 H 167/103 H Pulse Oximetry 99 99 99 Oxygen Delivery 06/20/23 15:31 06/20/23 15:46 06/20/23 16:46 Temperature Pulse Rate 82 53 L 52 L Respiratory Rate 21 H 14 17 Blood Pressure 143/117 H 166/96 H 157/91 H Pulse Oximetry 98 99 98 Oxygen Delivery 06/20/23 17:01 06/20/23 17:16 06/20/23 17:30 Temperature Pulse Rate 51 L 46 L 52 L Respiratory Rate 11 L 17 16 Blood Pressure 148/98 H 143/130 H Pulse Oximetry 97 99 100 Oxygen Delivery 06/20/23 18:00 06/20/23 18:00 06/20/23 19:56 Temperature Pulse Rate 58 L Respiratory Rate Blood Pressure Pulse Oximetry Oxygen Delivery Room Air Room Air 06/20/23 20:00 06/20/23 20:00 06/20/23 22:00 Temperature 97.4 F L Pulse Rate 74 69 49 L Respiratory Rate 18 Blood Pressure 127/78 Pulse Oximetry 97 Oxygen Delivery 06/20/23 23:38 06/21/23 01:25 06/21/23 00:00 Temperature 97.2 F L Pulse Rate 53 L 48 L 46 L Respiratory Rate 16 Blood Pressure 126/68 Pulse Oximetry 99 Oxygen Delivery 06/21/23 00:00 06/21/23 02:00 06/21/23 04:00 Temperature 97.2 F L Pulse Rate 51 L 59 L Respiratory Rate 16 Blood Pressure 153/81 H Pulse Oximetry 97 Oxygen Delivery Room Air 06/21/23 04:00 06/21/23 04:00 06/21/23 06:00 Temperature Pulse Rate 45 L 53 L Respiratory Rate Blood Pressure Pulse Oximetry Oxygen Delivery Room Air 06/21/23 08:26 Temperature Pulse Rate 84 Respiratory Rate Blood Pressure Pulse Oximetry Oxygen Delivery
--- NOTE | 2023-06-21 12:19 | PM.IMPN ---
Progress Note: A&P Assessment and Plan (1) Chest pain: Code(s): R07.9 - Chest pain, unspecified Status: Acute Assessment and Plan: Combination of reversible ischemia and nonreversible infarct extending from the apical to the basilar inferior and basilar inferolateral segments noted on Lexiscan, patient to get Cardiac Cath in the morning on 06/22. (2) Hypertension: Code(s): I10 - Essential (primary) hypertension Status: Acute Assessment and Plan: Stable, reviewed on 06/21 (3) IA (myocardial infarction): Code(s): I21.9 - Acute myocardial infarction, unspecified Status: Acute Assessment and Plan: Noted per Lexiscan, patient denies any known history of IA. Cardiac catheterization pending. Plan Cardiac cath in AM Heart Healthy diet, NPO midnight Remain in IMU at this time Time Spent With Patient Time with patient: 25 - 35 minutes Subjective Date/time seen: 06/21/23 12:19 Interval history: Tyron is an extremely pleasant 77-year-old male patient who was admitted for chest pain that was worse taking deep inhalations, left-sided nonradiating ongoing for a month but worsened prior to coming to the hospital. Trended troponins were negative. Patient was seen by Cardiology and a Lexiscan and echo were ordered. Lexiscan shows area of infarct and potentially reversible ischemia. There is also decreased EF noted about 43%. Patient to undergo cardiac catheterization tomorrow. patient reports he used to be on warfarin and had a clot when he his right knee surgery in July of 2022. Patient states he removed himself from warfarin because he found out it contained rat poison. I explained this mechanism to patient and he was surprised that it wasn't rat poison added to warfarin. Patient only complains of periodically nonradiating pain with deep inhalation no shortness of breath no nausea vomiting bowel or bladder problems. Review of Systems Review of Systems: Twelve systems were reviewed and are negative except for as per HPI. Exam Narrative: General: A well-developed, nontoxic-appearing male sitting up in bed in no acute distress. HEENT: Wearing corrective lenses. PERRL, EOMI. Sclera anicteric. Oral mucosa moist. Neck: Supple. Respiratory: Lungs are clear to auscultation bilaterally. Cardiovascular: Regular rate and irregular rhythm with S1-S2. Sinus rhythm rate in the 70s with frequent multifocal PVCs that are non perfusing by my own interpretation and auscultation/pulse palpation Chest: No tenderness to palpation over the chest wall. Gastrointestinal: Abdomen is soft, nontender, and nondistended with positive bowel sounds. Skin: Warm and dry. No rash or lesions on limited exam. Extremities: No cyanosis, clubbing, or significant edema. Radial and pedal pulses intact. Negative Tressa sign bilaterally. Neurological: Alert. Cranial nerves 2-12 are grossly intact. No gross focal deficits to casual conversation. Psychiatric: Pleasant and cooperative with normal mood and affect. Judgment and insight intact. Objective Data Vital Signs Vital Signs: Vital Signs - 24 hr 06/20/23 12:33 06/20/23 12:46 06/20/23 13:46 Temperature Pulse Rate 54 L 54 L 46 L Respiratory Rate 15 15 14 Blood Pressure 138/83 119/93 H 152/89 H Pulse Oximetry 100 98 Oxygen Delivery 06/20/23 14:31 06/20/23 15:01 06/20/23 15:10 Temperature Pulse Rate 48 L 55 L 61 Respiratory Rate 9 L 14 17 Blood Pressure 149/78 H 169/124 H 170/102 H Pulse Oximetry 98 99 99 Oxygen Delivery 06/20/23 15:16 06/20/23 15:31 06/20/23 15:46 Temperature Pulse Rate 56 L 82 53 L Respiratory Rate 14 21 H 14 Blood Pressure 167/103 H 143/117 H 166/96 H Pulse Oximetry 99 98 99 Oxygen Delivery 06/20/23 16:46 06/20/23 17:01 06/20/23 17:16 Temperature Pulse Rate 52 L 51 L 46 L Respiratory Rate 17 11 L 17 Blood Pressure 157/91 H 148/98 H 143/130 H Pulse Oximetry 98 97 99 Oxyg
[2023-06-21] MEDS: ZINC SULFATE 220 MG CAPSULE PO (13:08)
[2023-06-21] MEDS: OMEGA 3 POLYUNSAT FATTY ACIDS 1 GM CAP PO (13:08)
[2023-06-21] MEDS: CYANOCOBALAMIN 1,000 MCG TABLET 1000 MCG PO (13:09)
[2023-06-21] MEDS: ASCORBIC ACID 500 MG TABLET PO (13:09)
[2023-06-21] MEDS: oxyBUTYnin CHLORIDE XL 5 MG TAB.ER.24 10 MG PO (13:09)
[2023-06-21] MEDS: MULTIVITAMINS THERAPEUTIC TAB (*BKC) 1 TABLET PO (13:09)
[2023-06-21] MEDS: CHOLECALCIFEROL 1,000 UNITS TABLET 2000 UNITS PO (13:09)
[2023-06-21] MEDS: ENOXAPARIN 40 MG/0.4 ML SYRINGE SUB-Q (13:10)
--- NOTE | 2023-06-21 16:16 | PC.NURSE ---
On 06/21/23, the student, Lorrie MELLO [facility], provided care and completed [facility] documentation on this patient. I have reviewed the student's documentation and agree with the findings.
[2023-06-21] MEDS: hydrALAZINE HCL 20 MG/ML VIAL 10 MG IV PUSH (17:29)
[2023-06-21] MEDS: ATORVASTATIN 20 MG TABLET PO (20:15)
[2023-06-22] VITALS (15 sets, daily range): BP systolic 120–157; BP diastolic 70–99; PULSE 46–82; RESP 12–18; TEMP 36.1–36.4; O2SAT 94–100
[2023-06-22 05:12] LABS: Hematocrit 43.9 % (42.0-52.0); Hemoglobin 15.2 g/dL (14.0-18.0); Mean Corpuscular HGB Conc 34.6 g/dl (32-36); Mean Corpuscular Hemoglobin 33.1 pg (26-34); Mean Corpuscular Volume 95.6 fl (80-100); Mean Platelet Volume 11.4 fl (7.4-10.4); Platelet Count Result 184 k/mm3 (150-375); Red Blood Count 4.59 M/mm3 (4.6-6.20); Red Cell Distribution Width 12.9 % (11.5-14.5); White Blood Count 6.3 K/mm3 (4.5-10.0)
[2023-06-22 05:27] LABS: Alanine Aminotransferase 19 U/L (6-50); Albumin Level 3.5 g/dL (3.5-5.1); Alkaline Phosphatase 69 U/L (38-126); Anion Gap 6 mmol/L (8-16); Aspartate Amino Transferase 25 U/L (17-59); Bilirubin,Total 0.9 mg/dL (0.2-1.3); Blood Urea Nitrogen 24 mg/dL (9-20); Calcium 8.6 mg/dL (8.4-10.2); Carbon Dioxide 26 mmol/L (22-30); Chloride 103 mmol/L (98-107); Estimated CRCL calculation 69 ml/min; Estimated Glomerular Filt Rate > 60; Glucose 92 mg/dL (65-110); Potassium 3.8 mmol/L (3.4-5.0); Sodium 135 mmol/L (137-145)
--- NOTE | 2023-06-22 07:41 | PM.PNCARD ---
Progress Note: A&P Assessment and Plan (1) Chest pain: Code(s): R07.9 - Chest pain, unspecified Status: Acute Assessment and Plan: CP on inspiration only. UT r/o by serial troponin and EKG. 06/21/23 Lexiscan myoview shows combination of reversible and nonreversible infarct extending from apical to basilar inferior and basilar inferolateral segments. 06/21/23 Echo: EF 55-60%, grade I diastolic dysfunction (E/e' 10), mod LAE, mild CARRI, mild AI, trace MR/TR/PI, RVSP 58 mmHg. On aspirin, started Atorvastatin. Discuss risks/benefits/alternative to [facility] and he is agreeable to it. [facility] has been consulted for procedure. (2) History of deep vein thrombosis: Code(s): Z86.718 - Personal history of other venous thrombosis and embolism Status: Acute Assessment and Plan: Remote history. (3) Hypertension: Code(s): I10 - Essential (primary) hypertension Status: Acute Assessment and Plan: Stable. Was high here but he does not have a diagnosis of this previously. Monitor BP. (4) Abnormal nuclear cardiac imaging test: Code(s): R93.1 - Abnormal findings on diagnostic imaging of heart and coronary circulation Status: Acute Subjective Date/time seen: 06/22/23 07:41 Interval history: Reports mild chest pressure with inspiration. No sob. Exam Const: General: cooperative, healthy appearing and comfortable Orientation/consciousness: oriented to person, oriented to place and oriented to time Resp: Auscultation: clear to auscultation bilaterally, no crackles, no rales, no rhonchi and no wheezes Cardio: Rate: regular rate Rhythm: regular rhythm Heart sounds: no murmurs Peripheral pulses: dorsalis pedis present Neuro: General: oriented to person, oriented to place and oriented to time Extrem: Right lower extremity: no edema Left lower extremity: no edema Objective Data Vital Signs Vital Signs: Vital Signs - 24 hr 06/21/23 08:26 06/21/23 08:47 06/21/23 08:00 Temperature Pulse Rate 84 68 Respiratory Rate 16 Blood Pressure 142/82 H Pulse Oximetry 97 97 Oxygen Delivery Room Air 06/21/23 08:00 06/21/23 08:00 06/21/23 09:49 Temperature Pulse Rate 71 73 Respiratory Rate Blood Pressure Pulse Oximetry Oxygen Delivery Room Air 06/21/23 13:00 06/21/23 12:00 06/21/23 12:30 Temperature 96.9 F L Pulse Rate 63 68 Respiratory Rate 16 Blood Pressure 155/71 H Pulse Oximetry 96 Oxygen Delivery Room Air 06/21/23 16:00 06/21/23 16:00 06/21/23 16:00 Temperature 97.6 F Pulse Rate 76 83 Respiratory Rate 18 Blood Pressure 185/117 H Pulse Oximetry 99 Oxygen Delivery Room Air 06/21/23 14:00 06/21/23 18:00 06/21/23 19:59 Temperature 98 F Pulse Rate 76 89 81 Respiratory Rate 20 Blood Pressure 130/75 Pulse Oximetry 98 Oxygen Delivery 06/21/23 20:15 06/21/23 20:00 06/21/23 20:00 Temperature Pulse Rate 77 82 Respiratory Rate Blood Pressure Pulse Oximetry Oxygen Delivery Room Air 06/21/23 21:51 06/21/23 23:02 06/22/23 00:00 Temperature 97.9 F Pulse Rate 73 65 58 L Respiratory Rate 18 Blood Pressure 97/56 L Pulse Oximetry 97 Oxygen Delivery 06/22/23 00:00 06/22/23 02:00 06/22/23 04:00 Temperature Pulse Rate 51 L 56 L Respiratory Rate Blood Pressure Pulse Oximetry Oxygen Delivery Room Air 06/22/23 04:00 06/22/23 04:20 06/22/23 06:00 Temperature 97 F L Pulse Rate 51 L 47 L Respiratory Rate 18 Blood Pressure 120/70 Pulse Oximetry 100 Oxygen Delivery Room Air Intake/Output Intake/Output: Intake & Output 06/19/23 06/20/23 06/21/23 06/22/23 23:59 23:59 23:59 23:59 Intake Total 1390 Balance 1390 Meds/Results Medications: Active Medications Generic Name Dose Route Start Last Admin Trade Name Freq PRN Reason Stop Dose Admin Ascorbic Acid 500 mg 06/21/23 09:00 06/21/23 13:09 Ascorbic Acid 500
[2023-06-22] MEDS: OMEGA 3 POLYUNSAT FATTY ACIDS 1 GM CAP PO (09:04)
[2023-06-22] MEDS: ZINC SULFATE 220 MG CAPSULE PO (09:05)
[2023-06-22] MEDS: PROPRANOLOL HCL 10 MG TABLET PO (09:05)
[2023-06-22] MEDS: oxyBUTYnin CHLORIDE XL 5 MG TAB.ER.24 10 MG PO (09:05)
[2023-06-22] MEDS: ASCORBIC ACID 500 MG TABLET PO (09:05)
[2023-06-22] MEDS: MULTIVITAMINS THERAPEUTIC TAB (*BKC) 1 TABLET PO (09:05)
[2023-06-22] MEDS: ASPIRIN 81 MG ENTERIC TABLET PO (09:05)
[2023-06-22] MEDS: CHOLECALCIFEROL 1,000 UNITS TABLET 2000 UNITS PO (09:06)
[2023-06-22] MEDS: CYANOCOBALAMIN 1,000 MCG TABLET 1000 MCG PO (09:06)
--- NOTE | 2023-06-22 09:38 | WPDMODSED ---
Moderate Sedation Note-Pt Data Patient Data Diagnosis: Chest pain felt to be atypical of angina Abnormal nuclear stress test Present Complaint: Chest pain with breathing Procedure to be performed/Plan: Left heart catheterization Allergies Allergy/AdvReac Type Severity Reaction Status Date / Time meperidine AdvReac Unknown Nausea and Verified 06/20/23 08:31 Vomiting Home Medications Medication Instructions Recorded Confirmed Type apple cider vinegar 500 mg tablet 500 mg PO DAILY 06/16/22 06/20/23 History ascorbic acid (vitamin C) 500 mg 500 mg PO DAILY 06/16/22 06/20/23 History capsule cholecalciferol (vitamin D3) 50 50 mcg PO DAILY 06/16/22 06/20/23 History mcg (2,000 unit) capsule cyanocobalamin (vitamin B-12) 1,000 mcg PO DAILY 06/16/22 06/20/23 History 1,000 mcg tablet magnesium 100 mg capsule 100 mg PO DAILY 06/16/22 06/20/23 History omega-3 fatty acids 1,000 mg PO DAILY 06/16/22 06/20/23 History oxybutynin chloride 10 mg 10 mg PO DAILY 06/16/22 06/20/23 History tablet,extended release 24 hr zinc 50 mg tablet 50 mg PO DAILY 06/16/22 06/20/23 History iodine 150 mcg tablet 150 mcg PO DAILY 11/17/22 06/20/23 History propranolol 10 mg tablet 10 mg PO Q12H #90 tabs 03/28/23 06/20/23 Rx multivitamin 1 tablet PO DAILY 06/20/23 06/20/23 History bpsdevb-jotw-pboip-oreg-capryl 1 tablet PO DAILY 06/20/23 06/20/23 History Current Medications: Active Medications Ascorbic Acid (Ascorbic Acid 500 Mg Tablet) 500 mg PO DAILY [facility] Last Admin: 06/22/23 09:05 Dose: 500 mg Aspirin (Aspirin 81 Mg Enteric Tablet) 81 mg PO QAM [facility] Last Admin: 06/22/23 09:05 Dose: 81 mg Atorvastatin Calcium (Atorvastatin 20 Mg Tablet) 20 mg PO QHS [facility] Last Admin: 06/21/23 20:15 Dose: 20 mg Cyanocobalamin (Cyanocobalamin 1,000 Mcg Tablet) 1,000 mcg PO DAILY [facility] Last Admin: 06/22/23 09:06 Dose: 1,000 mcg Enoxaparin Sodium (Enoxaparin 40 Mg/0.4 Ml Syringe) 40 mg SUB-Q DAILY [facility] Last Admin: 06/22/23 08:35 Dose: Not Given Fish Oil (Marine 3 Polyunsat Fatty Acids 1 Gm Cap) 1 gm PO QAM [facility] Last Admin: 06/22/23 09:04 Dose: 1 gm Hydralazine HCl (Hydralazine Hcl 20 Mg/Ml Vial) 10 mg IV PUSH Q4HR PRN PRN Reason: Blood Pressure - High Last Admin: 06/21/23 17:29 Dose: 10 mg Multivitamins Therapeutic (Multivitamins Therapeutic Tab (*Bkc)) 1 tablet PO DAILY [facility] Last Admin: 06/22/23 09:05 Dose: 1 tablet Non-Formulary Medication (Apple Cider Vinegar) 500 mg PO DAILY [facility] Stop: 07/21/23 08:59 Non-Formulary Medication (Iodine) 150 mcg PO DAILY [facility] Stop: 07/22/23 08:59 Non-Formulary Medication (Magnesium) 100 mg PO DAILY [facility] Stop: 07/22/23 08:59 Non-Formulary Medication (Woatfpr-Rwzk-Eitwf-Oreg-Capryl) 1 tablet PO DAILY [facility] Stop: 07/21/23 08:59 Oxybutynin Chloride (Oxybutynin Chloride Xl 5 Mg Tab.Er.24) 10 mg PO DAILY [facility] Last Admin: 06/22/23 09:05 Dose: 10 mg Perflutren Lipid Microsphere (Perflutren Lipid Microspheres 1.5 Ml Vial Diluted To 10 Ml Total Volume) 0 ml IV PUSH ONCE PRN; Protocol PRN Reason: adequate visualization Stop: 06/23/23 16:21 Propranolol HCl (Propranolol Hcl 10 Mg Tablet) 10 mg PO Q12HR [facility] Last Admin: 06/22/23 09:05 Dose: 10 mg Vitamin D (Cholecalciferol 1,000 Units Tablet) 2,000 units PO DAILY [facility] Last Admin: 06/22/23 09:06 Dose: 2,000 units Zinc Sulfate (Zinc Sulfate 220 Mg Capsule) 220 mg PO DAILY [facility] Last Admin: 06/22/23 09:05 Dose: 220 mg Sedation/Anesthesia: No previous sedation/anesthesia problems (including family history). [facility] Past Medical History Medical History Deep vein thrombosis of right lower extremity (2017) Hypertension Lung disease Primary osteoarthritis of right knee Surgical History Surgical History History of appendectomy (1968) History of arthroplasty of right knee (07/2022) History of meniscectomy of right k
--- NOTE | 2023-06-22 10:40 | WPDCARDPROC ---
Cardiac Cath Procedure Note Date of procedure:: 06/22/23 Performing physician:: Ted Avendaño MD Indication:: Atypical chest pain abnormal nuclear stress test Brief clinical history:: this is a 77-year-old man reporting symptoms of chest pain with respiratory effort. He has no symptoms indicative of angina. A nuclear stress test was performed which demonstrated fixed defects at the apex and the base of the inferior wall for this reason an angiogram has been recommended Procedure Procedure performed:: left ventriculogram coronary angiogram Angio-Seal to right femoral artery Sedation/Medication given:: fentanyl 50 mg Versed 2 mg case start time 10:12 a.m. case end 1036 sedation provided by Kathy Elliott RN, trained observer Access site:: right femoral artery Estimated blood loss:: 20 cc Procedure note:: patient was brought to the cardiac catheterization lab in the postabsorptive state where the right femoral triangle was prepared and draped in the usual fashion. Anesthesia was provided with 1% lidocaine. Using the modified Seldinger technique a 5 Vietnamese sheath was placed into the right femoral artery after this left was performed. I used a 5 Vietnamese angled pigtail catheter to measure left-sided hemodynamics and inject LV g in the 30 degree PLASCENCIA projection. Following that a standard JR4 catheter was used to engage and inject the right coronary artery. A standard FL4 catheter was used to engage the left coronary artery this was unsuccessful as the left main has a somewhat superior takeoff. I then exchanged this for a FL 3.5 catheter which engaged the left main coronary artery nicely. Angiograms were then done in multiple projections of the left coronary artery. The procedure was then terminated. An angiogram was done of the femoral artery through the sheath after which I deployed a 6 Vietnamese Angio-Seal device with a good hemostatic result. 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 Findings:: Hemodynamics: Central aortic pressure is 124 over 75 left ventricle 124/5 end-diastolic pressure 14 there is no gradient on pullback across the aortic valve. Left ventricle: The left ventricle is slightly enlarged. There is modest global hypokinesia with an ejection fraction of about 45% by visual estimation. The left main coronary artery is short but widely patent left anterior descending is a medium caliber artery most of which is free of disease. The very distal apical terminal portion of the LAD is 100% occluded. There is a abrupt occlusion of the very terminal apical portion of the vessel. This appears to be chronic, the remainder of the LAD its diagonal and septal branches are normal. The circumflex is a very large caliber vessel giving rise to marginal branches, the posterior branches and the posterior descending artery. Circumflex is obviously dominant to the posterior circulation. It is angiographically free of disease. The right coronary artery is small to medium in caliber non dominant giving rise to 2 right ventricular branches. The right coronary artery is small but free of disease Conclusion:: 1. left coronary dominant circulation with mild single-vessel coronary disease in involving total occlusion of the last very tiny apical portion of the LAD as detailed above this appears to be a chronic occlusion 2. mild left ventricular systolic dysfunction ejection fraction is visually estimated at 45% Ted Avendaño MD [facility]
--- NOTE | 2023-06-22 11:53 | PM.IMPN ---
Progress Note: A&P Assessment and Plan (1) Chest pain: Code(s): R07.9 - Chest pain, unspecified Status: Acute Assessment and Plan: Left heart catheterization per (2) Hypertension: Code(s): I10 - Essential (primary) hypertension Status: Acute Assessment and Plan: Stable, reviewed on 06/21 (3) AR (myocardial infarction): Code(s): I21.9 - Acute myocardial infarction, unspecified Status: Acute Assessment and Plan: Noted per Saray, patient denies any known history of AR. Cardiac catheterization pending. Plan Cardiac cath in AM Heart Healthy diet, NPO midnight Remain in IMU at this time Subjective Date/time seen: 06/22/23 11:53 Interval history: No complaints Exam Narrative: General: A well-developed, nontoxic-appearing male sitting up in bed in no acute distress. HEENT: Wearing corrective lenses. PERRL, EOMI. Sclera anicteric. Oral mucosa moist. Neck: Supple. Respiratory: Lungs are clear to auscultation bilaterally. Cardiovascular: Regular rate and irregular rhythm with S1-S2. Sinus rhythm rate in the 70s with frequent multifocal PVCs that are non perfusing by my own interpretation and auscultation/pulse palpation Chest: No tenderness to palpation over the chest wall. Gastrointestinal: Abdomen is soft, nontender, and nondistended with positive bowel sounds. Skin: Warm and dry. No rash or lesions on limited exam. Extremities: No cyanosis, clubbing, or significant edema. Radial and pedal pulses intact. Negative Tressa sign bilaterally. Neurological: Alert. Cranial nerves 2-12 are grossly intact. No gross focal deficits to casual conversation. Psychiatric: Pleasant and cooperative with normal mood and affect. Judgment and insight intact. Objective Data Vital Signs Vital Signs: Vital Signs - 24 hr 06/21/23 13:00 06/21/23 12:00 06/21/23 12:30 Temperature 96.9 F L Pulse Rate 63 68 Respiratory Rate 16 Blood Pressure 155/71 H Pulse Oximetry 96 Oxygen Delivery Room Air 06/21/23 16:00 06/21/23 16:00 06/21/23 16:00 Temperature 97.6 F Pulse Rate 76 83 Respiratory Rate 18 Blood Pressure 185/117 H Pulse Oximetry 99 Oxygen Delivery Room Air 06/21/23 14:00 06/21/23 18:00 06/21/23 19:59 Temperature 98 F Pulse Rate 76 89 81 Respiratory Rate 20 Blood Pressure 130/75 Pulse Oximetry 98 Oxygen Delivery 06/21/23 20:15 06/21/23 20:00 06/21/23 20:00 Temperature Pulse Rate 77 82 Respiratory Rate Blood Pressure Pulse Oximetry Oxygen Delivery Room Air 06/21/23 21:51 06/21/23 23:02 06/22/23 00:00 Temperature 97.9 F Pulse Rate 73 65 58 L Respiratory Rate 18 Blood Pressure 97/56 L Pulse Oximetry 97 Oxygen Delivery 06/22/23 00:00 06/22/23 02:00 06/22/23 04:00 Temperature Pulse Rate 51 L 56 L Respiratory Rate Blood Pressure Pulse Oximetry Oxygen Delivery Room Air 06/22/23 04:00 06/22/23 04:20 06/22/23 06:00 Temperature 97 F L Pulse Rate 51 L 47 L Respiratory Rate 18 Blood Pressure 120/70 Pulse Oximetry 100 Oxygen Delivery Room Air 06/22/23 08:00 06/22/23 09:05 06/22/23 08:00 Temperature 97.6 F Pulse Rate 62 82 57 L Respiratory Rate 14 Blood Pressure 139/77 Pulse Oximetry 100 Oxygen Delivery 06/22/23 10:00 06/22/23 10:52 06/22/23 11:00 Temperature Pulse Rate 66 52 L 49 L Respiratory Rate 12 12 Blood Pressure 153/91 H 130/79 Pulse Oximetry 96 94 Oxygen Delivery Room Air Room Air 06/22/23 11:15 06/22/23 11:30 06/22/23 11:45 Temperature Pulse Rate 46 L 48 L 47 L Respiratory Rate 12 13 12 Blood Pressure 145/84 H 150/77 H 152/84 H Pulse Oximetry 94 96 96 Oxygen Delivery Room Air Room Air Room Air Intake/Output Intake/Output: Intake & Output 06/19/23 06/20/23 06/21/23 06/22/23 23:59 23:59 23:59 23:59 Intake Total 1390 Balance 1390 Meds/Results Medications: Active M
--- NOTE | 2023-06-22 13:53 | PM.DS ---
DS: Admitting Diagnosis Discharge Date 06/22/23 Admitting Diagnosis cp DS: Discharge Diagnosis Discharge Diagnosis (1) Chest pain: Code(s): R07.9 - Chest pain, unspecified Status: Acute Assessment and Plan: Left heart catheterization per (2) Hypertension: Code(s): I10 - Essential (primary) hypertension Status: Acute Assessment and Plan: Stable, reviewed on 06/21 (3) UT (myocardial infarction): Code(s): I21.9 - Acute myocardial infarction, unspecified Status: Acute Assessment and Plan: Noted per Jarettan, patient denies any known history of UT. Cardiac catheterization pending. Plan Cardiac cath in AM Heart Healthy diet, NPO midnight Remain in IMU at this time DS: Summary Hospital Course Hospital Course: admitted for cp, lhc performed, showed distal lad disease, no additional lesion and stents - ok to dc asa and statin on dc fu cardiology Time Spent with Patient Time attestation: Total time spent providing and/or coordinating discharge services: Exam Narrative: General: A well-developed, nontoxic-appearing male sitting up in bed in no acute distress. HEENT: Wearing corrective lenses. PERRL, EOMI. Sclera anicteric. Oral mucosa moist. Neck: Supple. Respiratory: Lungs are clear to auscultation bilaterally. Cardiovascular: Regular rate and irregular rhythm with S1-S2. Sinus rhythm rate in the 70s with frequent multifocal PVCs that are non perfusing by my own interpretation and auscultation/pulse palpation Chest: No tenderness to palpation over the chest wall. Gastrointestinal: Abdomen is soft, nontender, and nondistended with positive bowel sounds. Skin: Warm and dry. No rash or lesions on limited exam. Extremities: No cyanosis, clubbing, or significant edema. Radial and pedal pulses intact. Negative Tressa sign bilaterally. Neurological: Alert. Cranial nerves 2-12 are grossly intact. No gross focal deficits to casual conversation. Psychiatric: Pleasant and cooperative with normal mood and affect. Judgment and insight intact. DS: Data Data Completed and Pending Labs on day of discharge: Labs from last 24 hours 06/22/23 04:43 WBC 6.3 RBC 4.59 L Hgb 15.2 Hct 43.9 MCV 95.6 MCH 33.1 MCHC 34.6 RDW 12.9 Plt Count 184 MPV 11.4 H Sodium 135 L Potassium 3.8 Chloride 103 Carbon Dioxide 26 Anion Gap 6 L BUN 24 H Creatinine 0.90 Estim Creat Clear Calc 69 Estimated GFR > 60 Glucose 92 Calcium 8.6 Total Bilirubin 0.9 AST 25 ALT 19 Alkaline Phosphatase 69 Total Protein 6.0 L Albumin 3.5 Discharge Plan Discharge Attending physician on discharge: Ted Banuelos Consulting providers: Crow Callejas; Fallon Patel; Tito Hines Discharging Clinician: Ted Banuelos Patient Disposition: Home, Self-Care Activity: as tolerated Diet: as tolerated Discharge Instructions: DISCHARGE INSTRUCTIONS - POST CARDIAC CATH Activity Restriction 1. No Driving for 24 hours 2. No lifting, pushing or pulling more than 10 LBS for 1 week 3. No strenuous activity or exercising for 1 week 4. Shower after 24 hours, do not soak in any water such as hot tubs or bath tubs Wound Care 1. Remove dressing 24 hours after your procedure prior to showering 2. Lather soap and water to puncture site and rinse then pat dry 3. You may apply a new band aid to the site and remove after 24 hours then leave open to air 4. Monitor daily for redness, drainage, mild swelling and fever Report IMMEDIATELY: CALL 911 1. If you experience any swelling or bleeding from puncture site. Hold firm pressure over the puncture site until help arrives 2. If you experience any new discomfort in you back, neck, jaw, stomach or arm. Any shortness of breath, nausea, vomiting, or cold sweats 3.
== END 2023-06-22 14:27 | disposition home or self-care (01) ==
LOC: ANHED 10:20 → ANHIMU 17:52
PROVIDERS: Emergency Medicine; Nurse Practitioner; Physician Assistant; Specialist; Admitting Provider Student in an Organized Health Care Education/Training Program; Emergency Provider Nurse Practitioner Family; PCP Nurse Practitioner Adult Health; Visit Provider Chiropractor
PROC: 4A023N7 Measurement of Cardiac Sampling and Pressure, Left Heart, Percutaneous Approach (ICD-10-PCS; CPT 93452; principal; 2023-06-22 09:00)
DX: R07.9 Chest pain, unspecified (principal); I21.9 Acute myocardial infarction, unspecified; I10 Essential (primary) hypertension; Z86.718 Personal history of other venous thrombosis and embolism; Z87.891 Personal history of nicotine dependence; R93.1 Abnormal findings on diagnostic imaging of heart and coronary circulation
CPT/HCPCS: 36415; 71046; 71275; 78452; 80048; 80053; 80061; 83690; 83735; 84439; 84443; 84480; 84484; 85025; 85027; 85610; 85730; 93005; 93017; 93306; 93458; 96372; 99285; A9270; A9502; C1760; C1887; C1894; G0269; G0378; J0360; J1644; J1650; J2250; J2785; J3010; J7040; Q9967

== ENCOUNTER 2024-01-09 09:22 | Outpatient (CLI) | payer MEDICARE, SELFPAY ==
--- NOTE | ~2024-01-09 | US_ITS ---
EXAMINATION: US arterial ankle brachial ind DATE: 01/09/2024 10:12 INDICATION: Peripheral vascular disease with claudication. TECHNIQUE: Segmental pressures and plethysmographic and Doppler waveforms of the brachial and lower e xtremity arteries were obtained. COMPARISON: None. FINDINGS: Right and left brachial artery pressures of 169 mm Hg and 156 mm Hg, respectively, are concordant (no rmal difference <= 30 mmHg). The right ankle-brachial index (AMBER) is 1.07 (normal >= 0.9-1.0). The right great toe-brachial index (TBI) is 0.75 (normal >= 0.65). Arterial Doppler waveforms are biphasic with brisk systolic upstrokes at both right posterior tibial and dorsalis pedis arteries. The left AMBER is 1.04. The left TBI is 0.64. Arterial Doppler waveforms are biphasic with brisk systol ic upstrokes at both left posterior tibial and dorsalis pedis arteries. IMPRESSION: 1. Mild arterial occlusive disease to the left lower limb with normal left AMBER and minimally decrease d TBI. 2. No significant arterial occlusive disease to the right lower limb with normal right AMBER and TBI. 3. Cardiac arrhythmia is present. Correlate with EKG. Reviewed, dictated and finalized at location B. IMPRESSION: 1. Mild arterial occlusive disease to the left lower limb with normal left AMBER and minimally decreased TBI. 2. No significant arterial occlusive disease to the right lower limb with vu l right AMBER and TBI. 3. Cardiac arrhythmia is present. Correlate with EKG.
[2024-01-09 10:44] LABS: Basophils Absolute Auto 0.1 K/mm3 (0.0-0.1); Basophils Percent Auto 0.6 % (0.2-1.2); Eosinophils Absolute Auto 0.2 K/mm3 (0-0.3); Eosinophils Percent Auto 2.6 % (0-4.4); Hematocrit 46.9 % (42.0-52.0); Hemoglobin 16.3 g/dL (14.0-18.0); Immature Granulocyte Absolute 0.02 K/mm3 (0.00-0.031); Immature Granulocyte Percent A 0.2 % (0-0.5); Lymphocytes Absolute Auto 2.39 K/mm3 (0.9-3.2); Mean Corpuscular HGB Conc 34.8 g/dl (32-36); Mean Corpuscular Hemoglobin 32.7 pg (26-34); Mean Platelet Volume 10.9 fl (7.4-10.4); Monocytes Absolute Auto 0.6 K/mm3 (0.1-0.6); Monocytes Percent Auto 7.8 % (2.6-8.5); Neutrophils Absolute Auto 4.9 K/mm3 (1.3-6.7); Neutrophils Percent Auto 59.8 % (45.5-73.1); Platelet Count Result 212 k/mm3 (150-375); Red Blood Count 4.99 M/mm3 (4.6-6.20); Red Cell Distribution Width 13.2 % (11.5-14.5); White Blood Count 8.2 K/mm3 (4.5-10.0)
[2024-01-09 10:55] LABS: Alanine Aminotransferase 20 U/L (6-50); Albumin Level 4.4 g/dL (3.5-5.1); Alkaline Phosphatase 93 U/L (38-126); Anion Gap 3 mmol/L (4-12); Aspartate Amino Transferase 27 U/L (17-59); Bilirubin,Total 1.5 mg/dL (0.2-1.3); Blood Urea Nitrogen 21 mg/dL (9-20); Calcium 9.5 mg/dL (8.4-10.2); Carbon Dioxide 28 mmol/L (22-30); Chloride 104 mmol/L (98-107); Estimated Glomerular Filt Rate > 60; Glucose 92 mg/dL (65-110); Potassium 4.4 mmol/L (3.4-5.0); Sodium 135 mmol/L (137-145)
[2024-01-09 11:29] LABS: Prostate Specific Antigen 7.1 ng/mL (< OR = 4.0)
[2024-01-09 11:33] LABS: Free T4 Free Thyroxine 1.32 ng/mL (0.78-2.19)
[2024-01-14 13:03] LABS: Homocysteine 10.1 umol/L (<11.4)
[2024-01-14 18:47] LABS: Red Blood Cell Folate 513 ng/mL RBC (>280)
[2024-01-15 09:04] LABS: Methylmalonic Acid 112 nmol/L (87-318)
[2024-01-27 11:54] LABS: Vitamin B1 13 nmol/L (8-30)
== END 2024-01-09 09:23 | disposition home or self-care (01) ==
LOC: ANHIMG 09:37
PROVIDERS: Family Medicine; PCP Nurse Practitioner Adult Health; Visit Provider Psychiatry & Neurology Neurology
DX: Z12.5 Encounter for screening for malignant neoplasm of prostate (principal); I10 Essential (primary) hypertension; I73.9 Peripheral vascular disease, unspecified; G62.9 Polyneuropathy, unspecified; T84.53XA Infection and inflammatory reaction due to internal right knee prosthesis, initial encounter; J98.4 Other disorders of lung; I21.9 Acute myocardial infarction, unspecified; I77.1 Stricture of artery; I25.10 Atherosclerotic heart disease of native coronary artery without angina pectoris; R79.89 Other specified abnormal findings of blood chemistry; Z78.9 Other specified health status; Z74.09 Other reduced mobility; Z96.651 Presence of right artificial knee joint; Z86.718 Personal history of other venous thrombosis and embolism; Y83.8 Other surgical procedures as the cause of abnormal reaction of the patient, or of later complication, without mention of misadventure at the time of the procedure
CPT/HCPCS: 36415; 80053; 82607; 82747; 83090; 83921; 84153; 84425; 84439; 84443; 85025; 93922; G0103

== ENCOUNTER 2024-04-29 09:41 | Emergency (ER) | payer MEDICARE, SELFPAY ==
[2024-04-29] VITALS (12 sets, daily range): BP systolic 136–181; BP diastolic 86–96; PULSE 46–69; RESP 14–18; TEMP 36.5–36.6; O2SAT 95–100
--- NOTE | ~2024-04-29 | XR_ITS ---
XR chest 2V Ordering provider: Radames Trejo MD History: 78 years Male with . chest pain, left posterior radiating to lt chest anteriorly . Comparison: June 20, 2023 FINDINGS: MEDIASTINUM: The cardiac silhouette is not enlarged. LUNGS: No infiltrates, effusions or pneumothorax. OTHER: No free air under the diaphragm. Degenerative spine. IMPRESSION: No acute cardiopulmonary pathology. Reviewed, dictated and finalized at location A.
--- NOTE | ~2024-04-29 | CT_ITS ---
EXAMINATION: CTA chest PE protocol DATE: 04/29/2024 13:52 INDICATION: Left chest and shoulder pain. TECHNIQUE: Computed tomography angiography (CTA) of the chest was performed with 100 mL Omnipaque-350 intravenous contrast timed to evaluate the pulmonary arteries. Coronal maximum intensity projection 3D-reconstructions were created by the technologist. Automated exposure control and iterative reconst ruction technique were employed. The dose-length product was 567.43 mGy-cm. COMPARISON: Chest CT 06/20/2023 FINDINGS: There is mild atelectasis bilaterally. A calcified left lung nodule and calcified left neymar r and mediastinal lymph nodes are consistent with old granulomatous disease. No pleural effusion. The heart size is normal. No pericardial effusion. There is a small sliding hiatal hernia. There is a 10 mm cyst in the liver. There is severe thoracic spondylosis. There is severe osteoarthritis of the gl enohumeral joints. IMPRESSION: 1. No pulmonary embolus. Reviewed, dictated and finalized at location A. IMPRESSION: 1. No pulmonary embolus.
--- NOTE | 2024-04-29 09:42 | ECG_ITS ---
Test Date: 2024-04-29 09:48:17 Measurements Intervals [place] Rate: 51 P: 41 IN: 159 QRS: 72 QRSD: 105 T: -42 QT: 432 QTc: 401 Interpretive Statements SINUS BRADYCARDIA WITH SINUS ARRHYTHMIA DELAYED PRECORDIAL R/S TRANSITION NONSPECIFIC T-WAVE ABNORMALITY- INF/LAT LEADS BASELINE ARTIFACT- I, II, AVR, AVL, AVF BORDERLINE ECG No previous ECG available for comparison Electronically Signed On 04-29-2024 10:21:40 CDT by Crow Callejas D.O.
[2024-04-29 10:15] LABS: Basophils Percent Auto 0.5 % (0.2-1.2); Eosinophils Absolute Auto 0.2 K/mm3 (0-0.3); Eosinophils Percent Auto 1.9 % (0-4.4); Hemoglobin 15.4 g/dL (14.0-18.0); Immature Granulocyte Absolute 0.02 K/mm3 (0.00-0.031); Immature Granulocyte Percent A 0.2 % (0-0.5); Lymphocytes Absolute Auto 1.97 K/mm3 (0.9-3.2); Lymphocytes Percent Auto 23.7 % (18.3-44.2); Mean Corpuscular HGB Conc 34.2 g/dl (32-36); Mean Corpuscular Hemoglobin 33.5 pg (26-34); Mean Corpuscular Volume 97.8 fl (80-100); Mean Platelet Volume 11.6 fl (7.4-10.4); Monocytes Absolute Auto 0.8 K/mm3 (0.1-0.6); Monocytes Percent Auto 9.9 % (2.6-8.5); Neutrophils Absolute Auto 5.3 K/mm3 (1.3-6.7); Neutrophils Percent Auto 63.8 % (45.5-73.1); Platelet Count Result 214 k/mm3 (150-375); White Blood Count 8.3 K/mm3 (4.5-10.0)
[2024-04-29 10:21] LABS: Alanine Aminotransferase 23 U/L (6-50); Albumin Level 4.4 g/dL (3.5-5.1); Alkaline Phosphatase 96 U/L (38-126); Anion Gap 8 mmol/L (4-12); Aspartate Amino Transferase 30 U/L (17-59); Bilirubin,Total 0.9 mg/dL (0.2-1.3); Blood Urea Nitrogen 24 mg/dL (9-20); Calcium 9.3 mg/dL (8.4-10.2); Carbon Dioxide 31 mmol/L (22-30); Chloride 100 mmol/L (98-107); Estimated CRCL calculation 74 ml/min; Estimated Glomerular Filt Rate > 60; Glucose 97 mg/dL (65-110); Lipase 115 U/L (23-300); Potassium 4.4 mmol/L (3.4-5.0); Sodium 139 mmol/L (137-145)
[2024-04-29 10:26] LABS: Prothrombin Time 13.1 Seconds (11.1-14.7)
[2024-04-29 10:27] LABS: Partial Thromboplastin Time 26.1 Seconds (22.3-36.8)
[2024-04-29 10:33] LABS: Troponin I < 0.012 ng/mL (0.000-0.034)
[2024-04-29] MEDS: ASPIRIN 81 MG CHEWABLE TABLET 324 MG PO (10:39)
[2024-04-29 11:40] LABS: NT Pro B Type Natriuretic Pept 734 pg/mL (19.9-100)
[2024-04-29 12:20] LABS: D Dimer 0.91 ug/mL (<0.48)
--- NOTE | 2024-04-29 12:57 | ECG_ITS ---
Test Date: 2024-04-29 13:12:37 Measurements Intervals [place] Rate: 42 P: 22 NM: 154 QRS: -5 QRSD: 110 T: 187 QT: 472 QTc: 395 Interpretive Statements SINUS BRADYCARDIA MODERATE T-WAVE ABNORMALITY, CONSIDER LAT/HIGH LAT ISCHEMIA BASELINE ARTIFACT- I, II, III, AVR, AVL ABNORMAL ECG Compared to ECG 04/29/2024 09:48:17 T-wave abnormality now present Possible ischemia now present HEART RATE HAS DECREASED Electronically Signed On 04-29-2024 13:17:13 CDT by Crow Callejas D.O.
[2024-04-29 13:37] LABS: Troponin I < 0.012 ng/mL (0.000-0.034)
--- NOTE | 2024-04-29 14:32 | ED.GENADULT ---
HPI - General Adult General Chief complaint: Chest Pain Stated complaint: abnormal EKG, back and chest pain Time Seen by Provider: 04/29/24 10:19 History of Present Illness HPI narrative: This is a 78-year-old male presenting ED with a week of chest pain. Chest pain is described as a dull pain that radiates from his left shoulder to his chest. It is 3/10 intensity and comes and goes. He has never had pain like this before. Worse with deep breaths. Is improved with Motrin. He denies fevers chills or productive cough. No nausea vomiting diaphoresis or exertional component. Patient did have a history of a provoked DVT after knee surgery. Related Data Home Medications Medication Instructions Recorded Confirmed ascorbic acid (vitamin C) 500 mg 500 mg PO DAILY 06/16/22 04/29/24 capsule cholecalciferol (vitamin D3) 50 50 mcg PO DAILY 06/16/22 04/29/24 mcg (2,000 unit) capsule cyanocobalamin (vitamin B-12) 1,000 mcg PO DAILY 06/16/22 04/29/24 1,000 mcg tablet magnesium 100 mg capsule 100 mg PO DAILY 06/16/22 04/29/24 oxybutynin chloride 10 mg 10 mg PO DAILY 06/16/22 04/29/24 tablet,extended release 24 hr iodine 150 mcg tablet 150 mcg PO DAILY 11/17/22 04/29/24 zbgqlpx-cisr-gdmvu-oreg-capryl 1 tablet PO DAILY 06/20/23 04/29/24 Allergies Allergy/AdvReac Type Severity Reaction Status Date / Time meperidine AdvReac Unknown Nausea and Verified 04/29/24 08:19 Vomiting PMF Past Medical History Medical History Deep vein thrombosis of right lower extremity (2017) Hypertension Lung disease Peripheral neuropathy Peripheral vascular disease Primary osteoarthritis of right knee Surgical History Surgical History History of appendectomy (1968) History of arthroplasty of right knee (07/2022) History of meniscectomy of right knee (1979) History of tonsillectomy (1953) Family History Family History Mother Heart disease Arthritis Father Arthritis Heart disease Social History Social History Social History: Surrogate medical decision maker: Clau Li, spouse. Code status: Full code. Smoking packs per day: 3 Smoking cigarettes per day: 60.0 Years smoked: 4 Smoking pack-years: 12.00 Smoking status: Former smoker Alcohol intake: never Alcohol use details: Last drink was in 1971. Substance use: never Substance use type: does not use Lack of Transportation: No Lack of Food: Never True Current Housing: I Have Housing Concerned About Future Housing: No Difficulty Paying Gas/Electric Bills: No Difficulty Paying for Meds: No Currently Unemployed: No Education: Trade/Vocational Certificate Difficulty w/ Childcare or Family Care: No Living arrangements: with family Additional living arrangements comments: The patient lives with his in [place]. They have 3 children. Occupation/Education: retired Additional occupation/education comments: Retired from the [employer]. Spiritual care concerns: No Agree to blood products: Yes Exam Narrative: APPEARANCE: No apparent distress. Head: atraumatic. EYES: EOMI, NOSE: Atraumatic NECK: Trachea midline RESPIRATORY: No increased rate of breathing clear to auscultation CARDIOVASCULAR: RRR, no peripheral edema ABDOMINAL: Non-distended soft nontender MUSCULOSKELETAl: No obvious deformities no focal areas of tenderness on the chest or back NEURO: Alert. Moving 4/4 extremities SKIN:: Warm, dry. Normal color PSYCHIATRIC: Normal affect Course Vital Signs Vital signs: Vital Signs Pulse Rate 57 L 04/29/24 09:42 Temperature 97.8 F 04/29/24 13:31 Pulse Rate 50 L 04/29/24 14:00 Respiratory Rate 14 04/29/24 14:00 Blood Pressure 163/90 H 04/29/24 13:31 Pulse Oximetry 99 07/3
== END 2024-04-29 15:05 | disposition home or self-care (01) ==
PROVIDERS: Emergency Provider Emergency Medicine; PCP Nurse Practitioner Adult Health
DX: R07.89 Other chest pain (principal); I10 Essential (primary) hypertension; I73.9 Peripheral vascular disease, unspecified; G62.9 Polyneuropathy, unspecified; M17.11 Unilateral primary osteoarthritis, right knee; Z96.651 Presence of right artificial knee joint; Z86.718 Personal history of other venous thrombosis and embolism; Z87.891 Personal history of nicotine dependence; Z79.82 Long term (current) use of aspirin; Z79.899 Other long term (current) drug therapy; R00.1 Bradycardia, unspecified; R94.31 Abnormal electrocardiogram [ECG] [EKG]
CPT/HCPCS: 36415; 71046; 71275; 80053; 83690; 83880; 84484; 85025; 85380; 85610; 85730; 93005; 99284; A9270; Q9967

== ENCOUNTER 2024-05-07 15:19 | Outpatient (CLI) | payer MEDICARE, SELFPAY | END 2024-05-07 15:20 | disposition home or self-care (01) | LOC: ANHBWCLAB 15:20 | PROVIDERS: PCP Nurse Practitioner Adult Health; Visit Provider Nurse Practitioner Adult Health | DX: R97.20 Elevated prostate specific antigen [PSA] (principal) | CPT/HCPCS: 36415; 84153 ==

== ENCOUNTER 2024-05-27 10:12 | Outpatient (CLI) | payer MEDICARE, SELFPAY ==
[2024-05-27 10:38] LABS: Cholesterol 212 mg/dL (0-200); HDL Direct 51 mg/dL; Triglycerides 67 mg/dL (<150)
[2024-05-27 10:49] LABS: LDL Cholesterol Direct 132 mg/dL
== END 2024-05-27 10:13 | disposition home or self-care (01) ==
LOC: ANHLAB 10:15
PROVIDERS: PCP Nurse Practitioner Adult Health; Visit Provider Internal Medicine Cardiovascular Disease
DX: E78.5 Hyperlipidemia, unspecified (principal)
CPT/HCPCS: 36415; 80061

== ENCOUNTER 2024-08-14 10:04 | Emergency (ER) | payer MEDICARE, SELFPAY ==
--- NOTE | ~2024-08-14 | XR_ITS ---
EXAMINATION: XR knee RT 3V DATE: 08/14/2024 13:14 INDICATION: Right knee pain. TECHNIQUE: 3 views of right knee were obtained. COMPARISON: Right knee radiographs 11/23/2022 FINDINGS: There is a total right knee arthroplasty with patellar resurfacing in near-anatomic alignme nt. No fracture. No periprosthetic lucency to suggest loosening or infection. Again seen is heterotop ic ossification at the origin of medial collateral ligament. No knee joint effusion. IMPRESSION: 1. Total right knee arthroplasty in near-anatomic alignment. Reviewed, dictated and finalized at location A. [facility]MER
[2024-08-14 10:24] VITALS: BP 173/98; PULSE 59; RESP 18; TEMP 36.2; O2SAT 99
[2024-08-14 11:25] VITALS: BP 173/98; PULSE 59; RESP 18; TEMP 36.5; O2SAT 99
--- NOTE | 2024-08-14 12:55 | ED.GENADULT ---
HPI - General Adult General Chief complaint: Extremity Injury, Lower Stated complaint: right knee swelling and pain Time Seen by Provider: 08/14/24 12:24 Source: patient Mode of arrival: ambulatory Limitations: no limitations History of Present Illness HPI narrative: 79 YEARS OLD WHITE MALE COMPLAINING OF RIGHT KNEE SWELLING SINCE HAD SURGERY OF KNEE REPLACEMENT [address] MANJARREZ. PATIENT IS TELLING ME THAT HE HAVE PAIN WHEN HE CROSS HIS RIGHT LOWER EXTREMITY OTHERWISE NO PAIN. HE DENIES ANY RECENT TRAUMA, FEVER, CHILLS, NAUSEA, VOMITING Related Data Home Medications Medication Instructions Recorded Confirmed ascorbic acid (vitamin C) 500 mg 500 mg PO DAILY 06/16/22 07/10/24 capsule cholecalciferol (vitamin D3) 50 50 mcg PO DAILY 06/16/22 07/10/24 mcg (2,000 unit) capsule cyanocobalamin (vitamin B-12) 1,000 mcg PO DAILY 06/16/22 07/10/24 1,000 mcg tablet magnesium 100 mg capsule 100 mg PO DAILY 06/16/22 07/10/24 oxybutynin chloride 10 mg 10 mg PO DAILY 06/16/22 07/10/24 tablet,extended release 24 hr iodine 150 mcg tablet 150 mcg PO DAILY 11/17/22 07/10/24 kplggew-czzr-kxhmd-oreg-capryl 1 tablet PO DAILY 06/20/23 07/10/24 propranolol 10 mg tablet See Rx Instructions .Route .COMPLEX 07/10/24 07/10/24 Allergies Allergy/AdvReac Type Severity Reaction Status Date / Time meperidine AdvReac Unknown Nausea and Verified 07/10/24 08:45 Vomiting Review of Systems Review of Systems: All systems reviewed & are unremarkable except as noted in HPI and below PMFSH Past Medical History Medical History Deep vein thrombosis of right lower extremity (2016) Hypertension Lung disease Peripheral neuropathy Peripheral vascular disease Primary osteoarthritis of right knee Surgical History Surgical History History of appendectomy (1968) History of arthroplasty of right knee (07/2022) History of meniscectomy of right knee (1979) History of tonsillectomy (1953) Family History Family History Mother Heart disease Arthritis Father Arthritis Heart disease Social History Social History Social History: Surrogate medical decision maker: Clau Li, spouse. Code status: Full code. Smoking packs per day: 3 Smoking cigarettes per day: 60.0 Years smoked: 4 Smoking pack-years: 12.00 Smoking status: Former smoker Alcohol intake: never Alcohol use details: Last drink was in 1971. Substance use: never Substance use type: does not use Lack of Transportation: No Lack of Food: Never True Current Housing: I Have Housing Concerned About Future Housing: No Difficulty Paying Gas/Electric Bills: No Difficulty Paying for Meds: No Currently Unemployed: No Education: Trade/Vocational Certificate Difficulty w/ Childcare or Family Care: No Living arrangements: with family Additional living arrangements comments: The patient lives with his in [place]. They have 3 children. Occupation/Education: retired Additional occupation/education comments: Retired from the [employer]. Spiritual care concerns: No Agree to blood products: Yes Exam Narrative: GENERAL APPEARANCE: WELL-DEVELOPED, WELL-NOURISHED SKIN: NORMAL COLOR HEAD: NORMOCEPHALIC, NONTRAUMATIC EYES: CLEAR CONJUNCTIVA ENT: OROPHARYNX NORMAL, EARS NORMAL, NOSE NORMAL NECK: SUPPLE, NONTENDER CHEST AND RESPIRATORY: AIRWAY PATENT, NO RESPIRATORY DISTRESS, NO ACCESSORY MUSCLE USE HEART: REGULAR RATE/RHYTHM ABDOMEN: SOFT, NONTENDER, NO ORGANOMEGALY, QUIET BOWEL SOUNDS VASCULAR: NORMAL PERIPHERAL PULSES, NORMAL CAPILLARY REFILL. MUSCULOSKELETAL: RIGHT KNEE SLIGHTLY SWOLLEN COMPARED TO THE LEFT 1, NO BRUISES, NO WARMTH, NO DEFORMITY, SLIGHT LIMITED RANGE OF MOTION NEUROLOGIC: ALERT AND ORIENTED ?3, BROADCAST SUPERVISOR IS NORMAL TESTED, NO GROSS MOTOR DEFICIT Course Vital Signs Vital signs: Vital Signs Temperature 36.2 C L 08/14/24 10:24 Pulse Rate 59 L 08/14/24 10:24 Respiratory Rate 18 08/14/24 10:24 Blood Pressure 173/98 H 08/14/24 10:24 Pulse Oximetry 99 08/14/24 10:24 Oxygen Delivery Room Air 08/14/24 10:24 Temperature 36.5 C 08/14/24 11:25 Pulse Rate 59 L 08/14/24 11:25 Respiratory Rate 18 08/14/24 11:25 Blood Pressure 173/98 H 08/14/24 11:25 Pulse Oximetry 99 08/14/24 11:25 Oxygen Delivery Room Air 08/14/24 11:25 Medical Decision Making MDM Narrative Medical decision making narrative: NONTRAUMATIC RIGHT KNEE PAIN AND SWELLING SINCE HE HAD SURGERY 2021, NO RECENT TRAUMA X-RAY OF THE RIGHT KNEE SHOWED NO ACUTE ABNORMALITIES. Differential Diagnosis Differential Diagnosis: SPRAIN/ STRAIN/EFFUSION Vital Signs Vital Signs: Vital Signs Temperature 36.2 C L 08/14/24 10:24 Pulse Rate 59 L 08/14/24 10:24 Respiratory Rate 18 08/14/24 10:24 Blood Pressure 173/98 H 08/14/24 10:24 Pulse Oximetry 99 08/14/24 10:24 Oxygen Delivery Room Air 08/14/24 10:24 Temperature 36.5 C 08/14/24 11:25 Pulse Rate 59 L 08/14/24 11:25 Respiratory Rate 18 08/14/24 11:25 Blood Pressure 173/98 H 08/14/24 11:25 Pulse Oximetry 99 08/14/24 11:25 Oxygen Delivery Room Air 08/14/24 11:25 Imaging Data Radiologist's impression: Impressions Knee X-Ray 08/14/24 13:27 IMPRESSION: 1. Total right knee arthroplasty in near-anatomic alignment. Critical Care Time Critical Care Time Critical Care Time: No Discharge Plan Discharge Clinical Impression: Right knee pain Patient Disposition: Home, Self-Care Condition: Stable Instructions: Knee Pain (ED) Prescriptions: No Action isosorbide mononitrate 30 mg tablet extended release 24 hr 30 mg PO DAILY Qty: 30 5RF iodine 150 mcg tablet 150 mcg PO DAILY Rx Instructions: apart of multivitamin propranolol 10 mg tablet See Rx Instructions .ROUTE .COMPLEX Hold Instructions: .Provider Order Dose Instruction: TAKE 1 TABLET BY MOUTH EVERY 12 HOURS Rx Instructions: TAKE 1 TABLET BY MOUTH DAILY cholecalciferol (vitamin D3) 50 mcg (2,000 unit) Capsule 50 mcg PO DAILY ascorbic acid (vitamin C) 500 mg Capsule 500 mg PO DAILY cyanocobalamin (vitamin B-12) 1,000 mcg Tablet 1,000 mcg PO DAILY magnesium 100 mg Capsule 100 mg PO DAILY oxybutynin chloride 10 mg tablet extended release 24hr 10 mg PO DAILY vmwwqdr-jsjc-lnegu-oreg-capryl 1 tablet PO DAILY aspirin 81 mg Tablet,Delayed Release (Dr/Ec) 81 mg PO QAM Qty: 30 0RF atorvastatin 40 mg tablet 40 mg PO DAILY Qty: 30 5RF alprazolam 0.25 mg tablet 0.25 mg PO BID PRN (Reason: anxiety) Qty: 60 0RF duloxetine 60 mg capsule,delayed release(DR/EC) See Rx Instructions .ROUTE .COMPLEX Qty: 90 0RF Dose Instruction: TAKE 1 CAPSULE BY MOUTH EVERY DAY Rx Instructions: TAKE 1 CAPSULE BY MOUTH EVERY DAY Follow-up/Referrals: Humberto Manjarrez MD [Physician] - 08/15/[address] APRN [Primary Care Provider] -
[2024-08-14 14:08] VITALS: BP 151/91; PULSE 87; RESP 16; TEMP 36.4; O2SAT 99
== END 2024-08-14 14:09 | disposition home or self-care (01) ==
PROVIDERS: Emergency Provider Emergency Medicine; PCP Nurse Practitioner Adult Health
DX: M25.561 Pain in right knee (principal); Z96.651 Presence of right artificial knee joint; Z86.718 Personal history of other venous thrombosis and embolism; I10 Essential (primary) hypertension; Z87.891 Personal history of nicotine dependence
CPT/HCPCS: 73562; 99283

== ENCOUNTER 2024-09-18 11:17 | Outpatient (CLI) | payer MEDICARE, SELFPAY ==
[2024-09-18 19:46] LABS: Basophils Percent Auto 0.7 % (0.2-1.2); Eosinophils Absolute Auto 0.1 K/mm3 (0-0.3); Eosinophils Percent Auto 1.3 % (0-4.4); Hematocrit 46.2 % (42.0-52.0); Hemoglobin 15.8 g/dL (14.0-18.0); Immature Granulocyte Absolute 0.02 K/mm3 (0.00-0.031); Immature Granulocyte Percent A 0.3 % (0-0.5); Lymphocytes Absolute Auto 1.95 K/mm3 (0.9-3.2); Lymphocytes Percent Auto 32.1 % (18.3-44.2); Mean Corpuscular HGB Conc 34.2 g/dl (32-36); Mean Corpuscular Hemoglobin 33.2 pg (26-34); Mean Corpuscular Volume 97.1 fl (80-100); Mean Platelet Volume 11.5 fl (7.4-10.4); Monocytes Absolute Auto 0.5 K/mm3 (0.1-0.6); Monocytes Percent Auto 7.9 % (2.6-8.5); Neutrophils Absolute Auto 3.5 K/mm3 (1.3-6.7); Neutrophils Percent Auto 57.7 % (45.5-73.1); Platelet Count Result 273 k/mm3 (150-375); Red Blood Count 4.76 M/mm3 (4.6-6.20); Red Cell Distribution Width 13.2 % (11.5-14.5); White Blood Count 6.1 K/mm3 (4.5-10.0)
[2024-09-18 20:02] LABS: Alanine Aminotransferase 31 U/L (6-50); Alkaline Phosphatase 81 U/L (38-126); Anion Gap 2 mmol/L (4-12); Aspartate Amino Transferase 107 U/L (17-59); Bilirubin,Total 1.2 mg/dL (0.2-1.3); Blood Urea Nitrogen 30 mg/dL (9-20); Calcium 9.5 mg/dL (8.4-10.2); Carbon Dioxide 32 mmol/L (22-30); Chloride 103 mmol/L (98-107); Cholesterol 180 mg/dL (0-200); Estimated Glomerular Filt Rate > 60; Glucose 85 mg/dL (65-110); HDL Direct 44 mg/dL; Magnesium 2.1 mg/dL (1.6-2.3); Potassium 4.5 mmol/L (3.4-5.0); Sodium 137 mmol/L (137-145); Triglycerides 41 mg/dL (<150)
[2024-09-18 20:12] LABS: LDL Cholesterol Direct 97 mg/dL
[2024-09-18 20:24] LABS: Vitamin D 25 Hydroxy 62.4 ng/mL
[2024-09-18 20:32] LABS: Prostate Specific Antigen 7.9 ng/mL (< OR = 4.0)
== END 2024-09-18 11:18 | disposition home or self-care (01) ==
LOC: ANHBWCLAB 11:18
PROVIDERS: PCP Nurse Practitioner Adult Health; Visit Provider Nurse Practitioner Adult Health
DX: E55.9 Vitamin D deficiency, unspecified (principal); E78.5 Hyperlipidemia, unspecified; I10 Essential (primary) hypertension; Z12.5 Encounter for screening for malignant neoplasm of prostate
CPT/HCPCS: 36415; 80053; 80061; 82306; 83735; 84153; 84443; 85025; G0103

== ENCOUNTER 2025-03-17 08:53 | Outpatient (CLI) | payer MEDICARE, SELFPAY ==
--- NOTE | ~2025-03-17 | XR_ITS ---
Left Shoulder Technique: AP and scapular Y views were obtained. Clinical History: Pain Findings: No fracture or dislocation is seen. High riding humeral head suggests underlying rotator cu ff tear. There is advanced AC joint degenerative change, and moderate glenohumeral joint degenerative change. Soft tissues are unremarkable. Impression: High riding humeral head is suspicious for underlying full-thickness rotator cuff tear. Degenerative changes, as above. Reviewed, dictated and finalized at location M. Impression: High riding humeral head is suspicious for underlying full-thickness rotator cu ff tear. Degenerative changes, as above.
--- NOTE | ~2025-03-17 | XR_ITS ---
Right Knee Technique: AP, lateral, and oblique views were obtained. Clinical History: Pain Findings: No fracture or dislocation is seen. Right knee arthroplasty in place. Soft tissues are unre markable. No joint effusion is seen. Impression: No acute abnormality. Right knee arthroplasty. Reviewed, dictated and finalized at location . Impression: No acute abnormality. Right knee arthroplasty.
--- OUTSIDE RECORDS SUMMARY | 2025-03-17 09:17 | XMS_ITS | Clinical Summary ---
Author Organization [facility] Address [address] [place] [address] Care Team Providers Care Bobtailer Name Role Phone Unavailable Primary Care Provider Unavailabl e Source Comments [facility],non-owned Affiliates and Associated Physician Practices is amultiple site organization consisting of ambulatory clinics and hospital sitesin [place], [place], [place] and [place]. This disclosure is being madepursuant to the Care Everywhere program and may not contain all information available regarding this patient. Last updated 18.[facility] Allergies Active Allergy Reactions Criticality Noted Date Comments Meperidine Nausea and/or Vomiting 01/09/2013 Medications * Be aware that medications may not be up to date on this document. Alwaysverify current medications with the patient. lisinopril-hydro chlorothiazide (PRINZIDE; ZESTORETIC) 20-25 MG tablet Take 1 Tab by mouth once daily. Active multivitamin daily (THERAGRAN) tablet Take 1 Tab by mouth daily with food. Active Social History Tobacco Use Types Packs/Day Years Used Date Smoking Tobacco: Former Cigarettes Q uit: 10/01/1972 Alcohol Use Standard Drinks/Week Comments Not Asked 0 (1 standard drink = 0.6 oz pur e alcohol) Sex and Gender Information Value Date Recorded Sex Assigned at Not on file Legal Sex Male 1:32 PM CDT Gender Identity Not on file Sexual Orientation Not on file Last Filed Vital Signs Vital Sign Reading Time Taken Comments Blood Pressure 119/83 01/09/2013 10:45 AM CDT Pulse 79 01/09/2013 10:45 AM CDT Temperature 36.1 C (97 F) 01/09/2013 8:47 AM CDT Respiratory Rate 14 01/09/2013 10:45 AM CDT Oxygen Saturation 97% 01/09/2013 10:45 AM CDT Inhaled Oxygen Concentration - - Weight 101.2 kg (223 lb) 01/09/2013 8:32 AM CDT Height 175.3 cm (5' 9) 01/09/2013 8:32 AM CDT Body Mass Index 32.93 01/09/2013 8:32 AM CDT Plan of Treatment Health Maintenance Due Date Last Done Comments HEPATITIS C SCREENING 06/21/1963 DTAP/TDAP/TD VACCINES (1 - Tdap) 1966 PNEUMOCOCCAL VACCINE 50+ (1 of 1 - PCV) 1997 ZOSTER VACCINE (1 of 2) 1997 Respiratory Syncytial Virus (RSV) Vaccine Pt: or over 60 yrs (1 - 1-dose 75+ series) 2022 COVID-19 VACCINE ( - 2023-2 5 season) 2024 DEPRESSION SCREENING 10/01/2024 MEDICARE AWV CALENDAR YEAR 2024 INFLUENZA VACCINE (Season Ended) 2025 HEPATITIS B VACCINE Aged Out No longe r eligible based on patient's age to complete this topic HIB VACCINE Aged Out No longer eligi ble based on patient's age to complete this topic HPV VACCINE Aged Out No longer eligi ble based on patient's age to complete this topic MENINGOCOCCAL (Group B) VACC INE SHARED DECISION-MAKING Aged Out No longer eligibl e based on patient's age to complete this topic MENINGOCOCCAL GROUPS A/C/Y/W VACCINE Aged Out No longer eligible b ased on patient's age to complete this topic Insurance [facility] MANAGED MEDICARE ADV
--- OUTSIDE RECORDS SUMMARY | 2025-03-17 09:18 | XMS_ITS | CONTINUITY OF CARE DOCUMENT ---
Author Name aliviapercy amaricoleen Address Unknown Organization [facility] Address [address] [place] [address] Phone [phone] Care Team Providers Care Medical Staff Physician Name Role Phone Bashir Ryder MD Unavailable MARIA ESTHER MACKAY Unavailable MARIA ESTHER MACKAY Unavailable PROBLEMS Condition Status Date Provider Notes Cardiology examination active Bashir Ryder MD Hyperlipidemia active Bashir Ryder MD Hypertension active Bashir Ryder MD Swelling of right leg active Bashir Mendoza hx of DVT active Bashir Ryder MD Hx of [place] active Bashir Ryder MD CAD active Bashir Ryder MD ENCOUNTERS Date Type Provider Location Encounter Diag nosis - In-person encounter Office Visit Bashir Ryder MD [facility] - In-person encounter Office Visit Bashir Ryder MD [facility] Cardiology examinationHyperlipidemiaHypertensionSwelling of right leghx of DVTHx of MICAD VITAL SIGNS Date Observation Value Provider Body Mass Index (Ratio) 30.41 kg/m2 Nava Ryder MD blood pressure, cuff size regular Ja rret blood pressure, diastolic 101 mm[Hg] Ja rret blood pressure, systolic 188 mm[Hg] [facility] pulse rate 71 /min Romero respiratory rate E&M 12 /min Romero oxygen saturation, oximetry 99 % Romero weight E&M 200 [lb_av] Romero height E&M 68 [in_i] Romero Body Mass Index (Ratio) 30.41 kg/m2 Nava Ryder MD blood pressure, diastolic 97 mm[Hg] Mary [facility]kLogic blood pressure, systolic 174 mm[Hg] Nicky kLogic blood pressure, cuff size regular [facility] blood pressure, diastolic 97 mm[Hg] [facility] blood pressure, systolic 174 mm[Hg] [facility] pulse rate 58 /min Romero height E&M 68 [in_i] Romero oxygen saturation, oximetry 97 % Romero respiratory rate E&M 12 /min Romero weight E&M 200 [lb_av] Romero ALLERGIES Allergy Name Onset Date Reaction Criticality Status HYDROCODONE Low Criticality active HISTORY OF MEDICATION USE Medication Status Instructions Dates Provider Indications Com ments propranolol 10 mg tablet active valacyclovir 1 gram tablet active PLEASE SEE ATTACHED FOR DETAILED DIRECTIONS aspirin 81 mg tablet,delayed release (DR/EC) active TAKE ONE TABLET BY MOUTH DAILY EVERY MORNING atorvastatin 20 mg tablet active TAKE ONE TABLET BY MOUTH EVERY DAY AT BEDTIME FOR 30 DAYS oxybutynin chloride 10 mg tablet extended release 24hr active SOCIAL HISTORY Date Observation Value Provider personal history of marijuana use no Teresa Austin NP drug use no Teresa Austin JEWELRY COATER alcohol use no Teresa Austin JEWELRY COATER cigarette use yes Teresa Austin JEWELRY COATER smoking status Former smoker Teresa bell JEWELRY COATER cigarette use yes Romero Foster ay smoking status Former smoker Romero Rivero rday FUNCTIONAL STATUS Date Observation Value Provider HRA, CV Assess/Plan, Angina (inactive) Management Plan continue current therapy Teresa Austin JEWELRY COATER HRA, CV Assess/Plan, Angina (inactive) Management Plan continue current therapy Bashir Ryder MD INSURANCE PROVIDERS Payer name Policy type / Coverage type [place] red libertarian ID AARP MEDICARE ADVANTAGE HMO-POS HMO [id number] ADVANCE DIRECTIVES Name Date DISCUSSED - NO DECISION MADE TREATMENT PLAN Date Name Performer Cardiology: A BI 11/2023 CONCLUSIONS: 1 . Mild arterial disease of the lower extremities bilaterally. V enous dopplers 11/2023 CONCLUSIONS: 1 . No evidence of a deep vein thrombosis of the lower extremities bilaterally. 2 . Significant venous insufficiency of the great saphenous vein bilaterally. 3 . Significant venous insufficiency of the popliteal vein bilaterally. C ontinues to wear compression stockings. W ill arrange for R GSV Venaseal. Teresa Negretearabella ATKINSON Cardiology: H is updated medication list for this problem includes: Atorvastatin 20 Mg Tablet (Atorvastatin) ..... Take one tablet by mouth every day at bedtime for 30 days Teresa Negretearabella ATKINSON Cardiology: B P elevated in office today. He does not monitor his BP at home regularly and keep record D iscussed need to monitor BP at home and need to monitor sodium intake Teresa Negretearabella ATKINSON Cardiology: n o angina o n asa and statin C ardiac cath shows single vessel disease in the apical region of the LAD Teresa Manudjanochely ATKINSON Cardiology:on asa an d statin C ardiac cath shows single vessel disease in the apical region of the LAD Bashir Ryder MD Cardiology:BP elevat ed in clinic H is updated medication list for this problem includes: Propranolol 10 Mg Tablet (Propranolol) Aspirin 81 Mg Tablet,delayed Release (dr/ec) (Aspirin) ..... Take one tablet by mouth daily every morning BP today: 174/97 Bashir Ryder MD Cardiology:The patie nt is on a statin. H is updated medication list for this problem includes: Atorvastatin 20 Mg Tablet (Atorvastatin) ..... Take one tablet by mouth every day at bedtime for 30 days Bashir Ryder MD Date Name Venous Doppler Unila teral RLE VenaSeal Arterial Duplex Bi-L ower EX Venous Doppler Bilat eral LE - Reflux Complete Echo HISTORY OF PROCEDURES Procedure Date Procedure Name Provider Procedure Notes S tatus EKG Bashir Ryder MD completed
--- OUTSIDE RECORDS SUMMARY | 2025-03-17 09:18 | XMS_ITS | Clinical Summary ---
Author Organization [facility] Address [address] [place] [address] Care Team Providers Care Frame Hand Name Role Phone Abraham Toledo MD Primary Care Provider [phone] Allergies Active Allergy Reactions Criticality Noted Date Comments Meperidine Nausea & Vomiting Low 01/29/2019 Hydrocodone Nausea & Vomiting Low 11/01/2023 Medications magnesium oxide (MAG-OX) 415 mg (250 mg elemental) tablet Take 500 mg by mouth daily Active multivitamin-mi nerals-lutein tablet Take 1 tablet by mouth daily Active apple cider vinegar 300 mg tablet Take by mouth Active UNABLE TO FIND Take 1 each by mouth daily Med Name: super fruits and vegetables Active NOT IN DATABASE, PRESCRIPTION, 1 tablet daily Drug name: Prostate support supplement Active cholecalciferol , vitamin D3, 1,000 unit tablet,chewable Take by mouth Active aspirin 81 mg chewable tablet Take 1 tablet (81 mg total) by mouth daily Active pantoprazole DR (PROTONIX) 20 mg EC tabletIndicatio ns:Mucositis Prophylaxis,Jr atment of Non-Bleeding Gastric Disorder Take 1 tablet (20 mg total) by mouth daily 60 tablet 5 02/22/20 26 Active Active Problems Problem Noted Date Diagnosed Date Elevated prostate specific antigen (PSA) 025 Sensorineural hearing loss (SNHL) of both ears 0 05/31/2022 Assessment & Plan (05/31/2022 11:10 AM CDT): Hearing test in [facility] White noise such as a loud fan or radio at night Avoid ear cleaning techniques Impacted cerumen of right ear 05/31/2022 Assessment & Plan (05/31/2022 9:11 PM CDT): Avoid ear cleaning techniques Encounters Date Type Department Care Team Description 02/21/2025 2:05 PM CDT - 02/21/2025 5:54 PM CDT Emergency [facility] Emergency Department [address] [place] [address] Tino Nuno MD Nausea and vomiting, unspecified vomiting type (Primary Dx); Gastritis and duodenitis Discharge Disposition: Discharge to home or self care from Last 3 Months Immunizations Immunization Administration Dates Next Due Influenza, Trivalent, IM (MDV) 09/08/2016 Surgical History Surgery Date Site/Laterality Comments JOINT REPLACEMENT Right knee 2019 R/T fracture KNEE ARTHROSCOPY W/ DEBRIDEMENT TONSILLECTOMY Medical History Medical History Date Comments Anxiety Depression Hypertension SOB (shortness of breath) on exertion GERD (gastroesophageal reflux disease) Neuropathy Family History Medical History Relation Name Comments Heart disease Father Heart disease Mother Heart disease Paternal Grandmother Relation Name Status Comments Father Mother Paternal Grandmother Social History Tobacco Use Types Packs/Day Years Used Date Smoking Tobacco: Former Cigarettes Q uit: 10/01/1973 Smokeless Tobacco: Never Tobacco Cessation:Counseling Given: Not Answered AUDIT-C Answer Date Recorded Frequency of Alcohol Consumption Not on file 10/21/2024 Q2: How many drinks containi ng alcohol do you have on a typical day when you are drinking? Patient does not drink Q3: How often do you have si x or more drinks on one occasion? Never 10/21/2024 Personal Safety Answer Date Recorded Have you ever been in or are you currently in a harmful physical or emotional relationship or is someone making you feel afraid or unsafe? 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 Gender Identity Not on file Sexual Orientation Not on file Obstetrics History Last Filed Vital Signs Vital Sign Reading Time Taken Comments Blood Pressure 158/80 02/21/2025 5:00 PM CDT Pulse 60 02/21/2025 5:00 PM CDT Temperature 36.5 C (97.7 F) 02/21/2025 1:43 PM CDT Respiratory Rate 17 02/21/2025 5:00 PM CDT Oxygen Saturation 95% 02/21/2025 5:00 PM CDT Inhaled Oxygen Concentration - - Weight 83.9 kg (185 lb) 02/21/2025 1:43 PM CDT Height 174 cm (5' 8.5) 02/21/2025 1:43 PM CDT Body Mass Index 27.72 02/21/2025 1:43 PM CDT Plan of Treatment Health Maintenance Due Date Last Done Comments Depression Screening 1945 Fall Risk Assessment 1945 Hepatitis C Screening 1945 DTaP/Tdap/Td Vaccine (1 - Tdap) 1958 Hepatitis B Screening 1965 Zoster Vaccine (1 of 2) 1997 Well Visit 65+ 2012 Influenza Vaccine (Season Ended) 2025 09/11/2019, 07/18/2017, 09/08/2016 Pneumococcal vaccine 65+ Completed 10/29/2015, 07/01 Abdominal Aortic Aneurysm (A AA) Screen Completed 02/21/2025 Procedures Procedure Name Priority Date/Time Associated Diagnosis Comments URINALYSIS AND REFLEX TO MICROSCOPIC AND CULTURE STAT 02/21/2025 5:[address] CHEST ABDOMEN PELVIS W CONTRAST ED 02/21/2025 4:02 PM CDT PSA SCREEN Routine 02/21/2025 3:03 PM CDT LIPASE STAT 02/21/2025 3:03 PM CDT PROTIME-INR STAT 02/21/2025 3:03 PM CDT SEPSIS LACTATE WITH REFLEX STAT 02/21/2025 3:03 PM CDT EGFR STAT 02/21/2025 1:53 PM CDT DIFFERENTIAL AUTO STAT 02/21/2025 1:5 3 PM CDT COMPREHENSIVE METABOLIC PANEL STAT 02/21/2025 1:53 PM CDT CBC WITH AUTO DIFFERENTIAL STAT 02/21/2025 1:53 PM CDT from Last 3 Months Results * (ABNORMAL) Urinalysis reflex to microscopic and culture Urine (02/21/2025 5:16 PM CDT) Color, ur Yellow Yellow Clarity, ur Clear Clear [facility]) Specific gravity, ur 1.015 1.003 - 1.030 [facility] Comment:Confirmed by manual dipstick pH, urine 6.5 [facility] Comment: Interpretive Data U rine pH is affected by diet, medications, systemic acid-base disturbances, and renal tubular function. pH may affect urinary stone formation. For example, urine pH below 6.0 may help reduce the tendency for calcium phosphate stones and pH greater than 6.0 may reduce the tendency for uric acid stone formation. Source: [facility] Current Interpretive Data was last revised on 2017 Protein, ur ql Trace Negative [facility]) Glucose, ur ql Negative Negative [facility]) Ketones, ur 1+(A) Negative [facility]) Bilirubin, ur Negative Negative [facility]) Blood, ur Negative Negative [facility]) Urobilinogen, ur <2.0 <2.0 mg/dL [facility]) Nitrite, ur Negative Negative [facility]) Leukocyte esterase, ur Negative Negative [facility]) UA reflex comment Reflex conditions for microscopic UA and culture not met. [facility] Urine 02/21/2025 5:16 PM CDT 02/21/2025 5:27 PM CDT us Tino Nuno MD LAB MICROBIOLOGY - GENERAL ORDERABLES Final Result [facility] 1 [facility] Department [place] [address] * CT Chest Abdomen Pelvis W Contrast (02/21/2025 4:02 PM CDT) Anatomical Region Laterality Modality Body N/A Computed Tomogra phy 02/21/2025 4:45 PM CDT Narrative 02/21/2025 4:50 PM CDT EXAM DESCRIPTION: CT CHEST ABDOMEN PELVIS W CONTRAST REASON FOR STUDY: vomiting diarhea, hemoptysis Patient presents with multiple episodes of dark brown emesis and an episode of diarrhea that started early this morning. Denies abdominal pain. Denies nausea at this time, last episode of vomiting was at 0730. TECHNIQUE: CT scan of the chest, abdomen, and pelvis performed with intravenous and without oral contrast using helical scanning technique with dynamic intravenous contrast injection. Reconstructed coronal and sagittal MPR images reviewed. All images stored on PACS. Automated exposure control was used as a dose optimization technique for this examination. CONTRAST TYPE/DOSE: 75mL of IOVERSOL 350 MG IODINE/ML INTRAVENOUS SYRINGE injected via intravenous COMPARISON: None FINDINGS: CHEST LUNGS: There is a 5 mm pleural-based ground-glass opacity between the lingula and left lower lobe (axial image 74 of 99). PLEURA: No effusion. No pneumothorax. MEDIASTINUM/LUDY: There are few calcified mediastinal lymph nodes. No pathologically enlarged mediastinal or hilar lymph nodes are seen. HEART: Heart size is normal with no pericardial effusion. VASCULATURE CHEST: No thoracic aortic aneurysm or dissection. AXILLA: No adenopathy. CHEST WALL: No masses. No subcutaneous air. HARDWARE/LINES/TUBES: None. MUSCULOSKELETAL CHEST: There is severe degenerative change of the left shoulder joint. ABDOMEN/PELVIS LIVER: Normal size. There are few small hepatic cysts measuring up to 9.5 mm in diameter.. GALLBLADDER: No stones identified. No wall thickening or inflammatory changes. BILE DUCTS: No intrahepatic or extrahepatic ductal dilatation. SPLEEN: Normal size. No focal lesions. PANCREAS: No identified cystic or solid masses. No significant calcifications. No adjacent inflammation or peripancreatic fluid collections. Pancreatic duct not dilated. ADRENALS: Normal. KIDNEYS/URINARY TRACT: No identified significant cystic or solid masses. No visualized stones. No hydronephrosis or hydroureter. Symmetric enhancement. Urinary bladder is unremarkable. GI: There is a small hiatal hernia. No dilated bowel loops. No obvious wall thickening. Numerous diverticular seen in the sigmoid colon without evidence of diverticulitis noted.. PERITONEUM: No ascites or free air. RETROPERITONEUM: No mass or adenopathy. REPRODUCTIVE: The prostate gland appears enlarged. VASCULATURE ABDOMEN: No abdominal aortic aneurysm. MUSCULOSKELETAL ABDOMEN PELVIS: Multilevel lumbar spondylosis is seen including anterolisthesis of L3 on L4 and L4 on L5. there is severe degenerative change of the right hip joint. OTHER: No significant abnormality. IMPRESSION: 1. Overall no acute findings to explain the patient's symptoms. 2. Small pleural-based ground-glass opacity in the left lung. Follow-up per Fleischner society guidelines (see below). 3. Small hepatic cysts. 4. Diverticulosis. 5. Enlarged prostate gland. Correlation with PSA levels is recommended. Recent guidelines by the Fleischner Society (Radiology 691327,2017) divides patient into low vs. high risk (for example, patients who smoke are considered high risk) and provides followup recommendations as follows: SOLITARY PART-SOLID NODULE: Patients with a Solitary Part-Solid nodule less than 6 mm do not require follow-up. Larger than 6 mm Solitary Part-Solid nodule require CT in 3 to 6 months to confirm persistence. If unchanged and solid component below 6 mm, CT annually for 5 years. Note: Persistent part-solid nodules containing a solid component larger than 6 mm are highly suspicious. MULTIPLE SOLITARY PART-SOLID NODULES: Patients with Multiple Solitary Part-Solid nodules less than [address] in 3 to 6 months. If unchanged, consider CT in 2 and 4 years. Larger than 6 mm Multiple Solitary Part-Solid nodules require CT at 3 to 6 months. The management based on most suspicious nodule(s). Note: These recommendations do not apply to lung cancer screening, patients with immunosuppression, or patients with known primary cancer. http://pubs.rsna.org/doi/pdf/10.1148/radiol.0681273695 THIS IS AN ELECTRONICALLY VERIFIED FINAL REPORT 02/21/2025 4:50 PM - Electronically signed by Akira Mcleod M.D. BS: CECILY Report ID: [id number] Reading Location: [place] [address] Procedure Note Akira Mcleod MD - 02/21/2025 EXAM DESCRIPTION: CT CHEST ABDOMEN PELVIS W CONTRAST REASON FOR STUDY: vomiting diarhea, hemoptysis Patient presents with multiple episodes of dark brown emesis and anepisode of diarrhea that started early this morning. Denies abdominal pain. Deniesnausea at this time, last episode of vomiting was at 0730. TECHNIQUE: CT scan of the chest, abdomen, and pelvis performed with intravenous and without oral contrast using helical scanning techniquewith dynamic intravenous contrast injection. Reconstructed coronal and sagittalMPR images reviewed. All images stored on PACS. Automated exposure control was used as a dose optimization technique for this examination. CONTRAST TYPE/DOSE: 75mL of IOVERSOL 350 MG IODINE/ML INTRAVENOUS SYRINGE injected via intravenous COMPARISON: None FINDINGS: CHEST LUNGS: There is a 5 mm pleural-based ground-glass opacity between the lingula and left lower lobe (axial image 74 of 99). PLEURA: No effusion. No pneumothorax. MEDIASTINUM/LUDY: There are few calcified mediastinal lymph nodes. No pathologically enlarged mediastinal or hilar lymph nodes are seen. HEART: Heart size is normal with no pericardial effusion. VASCULATURE CHEST: No thoracic aortic aneurysm or dissection. AXILLA: No adenopathy. CHEST WALL: No masses. No subcutaneous air. HARDWARE/LINES/TUBES: None. MUSCULOSKELETAL CHEST: There is severe degenerative change of the left shoulder joint. ABDOMEN/PELVIS LIVER: Normal size. There are few small hepatic cysts measuring up to9.5 mm in diameter.. GALLBLADDER: No stones identified. No wall thickening or inflammatory changes. BILE DUCTS: No intrahepatic or extrahepatic ductal dilatation. SPLEEN: Normal size. No focal lesions. PANCREAS: No identified cystic or solid masses. No significant calcifications. No adjacent inflammation or peripancreatic fluidcollections. Pancreatic duct not dilated. ADRENALS: Normal. KIDNEYS/URINARY TRACT: No identified significant cystic or solid masses.No visualized stones. No hydronephrosis or hydroureter. Symmetricenhancement. Urinary bladder is unremarkable. GI: There is a small hiatal hernia. No dilated bowel loops. No obviouswall thickening. Numerous diverticular seen in the sigmoid colon withoutevidence of diverticulitis noted.. PERITONEUM: No ascites or free air. RETROPERITONEUM: No mass or adenopathy. REPRODUCTIVE: The prostate gland appears enlarged. VASCULATURE ABDOMEN: No abdominal aortic aneurysm. MUSCULOSKELETAL ABDOMEN PELVIS: Multilevel lumbar spondylosis is seen including anterolisthesis of L3 on L4 and L4 on L5. there is severe degenerative change of the right hip joint. OTHER: No significant abnormality. IMPRESSION: 1. Overall no acute findings to explain the patient's symptoms. 2. Small pleural-based ground-glass opacity in the left lung. Follow-upper Fleischner society guidelines (see below). 3. Small hepatic cysts. 4. Diverticulosis. 5. Enlarged prostate gland. Correlation with PSA levels is recommended. Recent guidelines by the Fleischner Society (Radiology 637425,2017)divides patient into low vs. high risk (for example, patients who smoke areconsidered high risk) and provides followup recommendations as follows: SOLITARY PART-SOLID NODULE: Patients with a Solitary Part-Solid noduleless than 6 mm do not require follow-up. Larger than 6 mm Solitary Part-Solid nodule require CT in 3 to 6 months to confirm persistence. If unchangedand solid component below 6 mm, CT annually for 5 years. Note: Persistent part-solid nodules containing a solid component larger than 6 mm arehighly suspicious. MULTIPLE SOLITARY PART-SOLID NODULES: Patients with Multiple Solitary Part-Solid nodules less than [address] in 3 to 6 months. Ifunchanged, consider CT in 2 and 4 years. Larger than 6 mm Multiple SolitaryPart-Solid nodules require CT at 3 to 6 months. The management based on mostsuspicious nodule(s). Note: These recommendations do not apply to lung cancer screening,patients with immunosuppression, or patients with known primary cancer. http://pubs.rsna.org/doi/pdf/10.1148/radiol.4390801287 THIS IS AN ELECTRONICALLY VERIFIED FINAL REPORT 02/21/2025 4:50 PM - Electronically signed by Akira Mcleod M.D. BS: CECILY Report ID: [id number] Reading Location: [place] [address] us Tino Nuno MD IM CT PROCEDURES Final Res ult * Sepsis Lactate w/ Reflex (02/21/2025 3:03 PM CDT) Sepsis Lactate 1.1 0.7 - 2.0 mmol/L Blood 02/21/2025 3:03 PM CDT 02/21/2025 3:07 PM CDT Tino Nuno MD LAB BLOOD ORDERABLES Final Result Performing Organization Address [facility] Co de Phone Number [facility] [place] [address] [place] [address] * PSA screen (02/21/2025 3:03 PM CDT) PSA-Total 5.23 <=6.20 ng/mL Comment: Interpretive Data AGE SEX REFERENCE INTERVAL 0 minutes-150 years Female None 0 minutes-49 years Male None 50-59 years Male 0-3.90 60-69 years Male 0-5.40 70-79 years Male 0-6.20 80-150 years Male 0-6.20 The [employer] PSA Total assay procedure was used. Results from different manufacturers or methods may not be comparable. Serial testing should be performed using the same method. Current interpretive data last revised 22. Blood 02/21/2025 3:03 PM CDT 02/21/2025 3:07 PM CDT Tino Nuno MD LAB BLOOD ORDERABLES Final Result Performing Organization Address [facility] Co de Phone Number [facility] 1 [facility] [place] [address] * Protime-INR (02/21/2025 3:03 PM CDT) PT 12.4 9.7 - 13.0 sec [facility] ([place]) INR 1.14 0.90 - 1.20 [facility] ([place]) Comment: Interpretive data Oral anticoagulant therapeutic ranges: Venous thromboembolism prophylaxis or treatment: 2.0-3.0 CARDIOLOGY Standard range: 2.0-3.0 High-intensity range: 2.5-3.5 Refer to indication-specific guidelines for appropriate target ranges for prosthetic heart valve replacement. Current interpretive data was last revised on 2019. Blood 02/21/2025 3:03 PM CDT 02/21/2025 3:07 PM CDT Tino Nuno MD LAB BLOOD ORDERABLES Final Result [facility] ([place]) 1 [facility] [place] [address] * Lipase (02/21/2025 3:03 PM CDT) Lipase 65 10 - 99 Units/L Blood 02/21/2025 3:03 PM CDT 02/21/2025 3:07 PM CDT Tino Nuno MD LAB BLOOD ORDERABLES Final Result Performing Organization Address [facility] Co de Phone Number [facility] ([place]) 1 [facility] [place] [address] * eGFR (02/21/2025 1:53 PM CDT) eGFR >90 >=60 mL/min/1. 73 m2 Comment: Interpretive Data Reference Interval Normal >/= 90 mL/min/1.73m2 Mildly decreased* 60 - 89 mL/min/1.73m2 Mildly to moderately decreased 45 - 59 mL/min/1.73m2 Moderately to severely decreased 30 - 44 mL/min/1.73m2 Severely decreased 15 - 29 mL/min/1.73m2 Kidney Failure < 15 mL/min/1.73m2 *Relative to young adult level Estimated glomerular filtration rate is determined by the 2020 CKD-EPI equation recommended by the National Kidney Foundation (A Unifying Approach to GFR Estimation: Recommendations of the NKF-ASK Task Force on Reassessing the Inclusion of Race in Diagnosing Kidney Disease, JASN 2020). The CKD-EPI equation should not be used for patients with unstable renal function and has not been validated in children and those over 70. Current interpretive data was last reviewed 2021. Blood 02/21/2025 1:53 PM CDT 02/21/2025 1:55 PM CDT Tino Nuno MD LAB BLOOD ORDERABLES Final Result [facility] ([place]) 1 [facility] Department [place] [address] * Differential, auto (02/21/2025 1:53 PM CDT) Neutrophil abs 6.10 1.50 - 6.50 K/cumm Imm gran abs 0.02 0.00 - 0.10 K/cumm [facility] Lymphocyte abs 1.15 0.80 - 3.30 K/cumm [facility] ([place]) Monocyte abs 0.58 0.20 - 0.80 K/cumm [facility] ([place]) Eosinophil abs 0.01 0.00 - 0.50 K/cumm [facility] ([place]) Basophil abs 0.02 0.00 - 0.10 K/cumm [facility] ([place]) Neutrophil pct 77.3 % [facility] ([place]) Comment: Interpretive Data Percent cell count reference ranges are not reported, since discordance with absolute values may lead to misinterpretation of CBC data. Current Interpretive Data was last revised on 2018. Imm gran pct 0.3 % [facility] ([place]) Comment: Interpretive Data Percent cell count reference ranges are not reported, since discordance with absolute values may lead to misinterpretation of CBC data. Current Interpretive Data was last revised on 2018. Lymphocyte pct 14.6 % [facility] ([place]) Comment: Interpretive Data Percent cell count reference ranges are not reported, since discordance with absolute values may lead to misinterpretation of CBC data. Current Interpretive Data was last revised on 2018. Monocyte pct 7.4 % [facility] ([place] Comment: Interpretive Data Percent cell count reference ranges are not reported, since discordance with absolute values may lead to misinterpretation of CBC data. Current Interpretive Data was last revised on 2018. Eosinophil pct 0.1 % [facility] ([place] Comment: Interpretive Data Percent cell count reference ranges are not reported, since discordance with absolute values may lead to misinterpretation of CBC data. Current Interpretive Data was last revised on 2018. Basophil pct 0.3 % [facility] ([place] Comment: Interpretive Data Percent cell count reference ranges are not reported, since discordance with absolute values may lead to misinterpretation of CBC data. Current Interpretive Data was last revised on 2018. Blood 02/21/2025 1:53 PM CDT 02/21/2025 1:55 PM CDT Tino Nuno MD LAB BLOOD ORDERABLES Final Result [facility] ([place] 1 [facility] Department [place] [address] * CBC with auto differential (02/21/2025 1:53 PM CDT) WBC 7.88 3.80 - 9.90 K/cumm Hgb 14.9 13.0 - 17.5 g/dL [facility] Hct 44.0 38.9 - 50.3 % [facility] Plt 188 150 - 400 K/cumm [facility] MPV 11.2 9.1 - 12.3 fL [facility] RBC 4.60 4.30 - 5.80 M/cumm [facility]) MCV 95.7 81.3 - 96.4 fL [facility] MCH 32.4 27.1 - 33.3 pg [facility] MCHC 33.9 32.3 - 35.7 g/dL [facility] RDW CV 13.2 11.1 - 14.9 % [facility] RDW SD 46.5 35.7 - 48.1 fL [facility] NRBC abs 0.00 0.00 - 0.01 K/cumm [facility] ([place]) Blood Venous blood specimen / Unknown 02/21/2025 1:53 PM CDT 02/21/2025 1:55 PM CDT us Tino Nuno MD LAB BLOOD ORDERABLES Final Result [facility] 1 [facility] Department [place] [address] * Comprehensive metabolic panel (02/21/2025 1:53 PM CDT) Sodium 141 135 - 145 mmol/L Potassium, pl 4.5 3.3 - 4.9 mmol/L [facility] Chloride 103 97 - 110 mmol/L [facility] CO2 27 22 - 32 mmol/L [facility] Anion gap 11 2 - 15 mmol/L [facility] BUN 19 6 - 25 mg/dL [facility] Creatinine 0.80 0.80 - 1.30 mg/dL [facility] Glucose 90 70 - 199 mg/dL [facility] Comment: Interpretive Data Fasting glucose >/= 126 mg/dl is diagnostic for diabetes. Fasting is defined as no caloric intake for at least 8 hours. Fasting glucose between 100 mg/dl to 125 mg/dl is diagnostic of prediabetes. In a patient with classic symptoms of hyperglycemia or hyperglycemic crisis, a random glucose >/= 200 mg/dl is diagnostic for diabetes. In the absence of unequivocal hyperglycemia, results should be confirmed by repeat testing. The classification and Diagnosis of Diabetes Diabetes Care 2021; 46: S19-S40. Current interpretive data was last revised 2022. Calcium 9.5 8.5 - 10.3 mg/dL [facility] Bilirubin, total 0.9 0.1 - 1.2 mg/dL [facility] ([place]) Protein, pl 6.7 6.5 - 8.5 g/dL [facility]) Albumin 3.8 3.5 - 5.0 g/dL [facility] Alk phos 96 40 - 130 Units/L [facility] ALT 21 7 - 55 Units/L [facility] AST 23 10 - 50 Units/L [facility] Blood Venous blood specimen / Unknown 02/21/2025 1:53 PM CDT 02/21/2025 1:55 PM CDT Tino Nuno MD LAB BLOOD ORDERABLES Final Result [facility] [place] [facility] Department [place] [address] from Last 3 Months Insurance [facility] MEDICARE ADVANTAGE [facility] MEDIC[facility] Address: [address] [address] [place] [address] [facility] MEDICARE ADVANTAGE [facility] MEDICARE ADVANTAGE Advance Directives For more information, please contact: [phone] * Full Code (Latest Code Status on File) Date Activated Date Inactivated Comments 01/29/2019 9:57 AM 01/29/2019 2:49 PM Care Teams Frame Hand Relationship Specialty Start Date End Date Abraham Toledo MD PCP - General Family Practice 10/10/23
--- OUTSIDE RECORDS SUMMARY | 2025-03-17 09:18 | XMS_ITS | Referral Summary ---
Author Organization [facility] Address [address] [place] [address] Care Team Providers Care Occupational Physician Name Role Phone Abraham Toledo MD Primary Care Provider [phone] Encounters Date Type Department Care Team Description 02/21/2025 2:05 PM CDT - 02/21/2025 5:54 PM CDT Emergency [facility] [place] Emergency Department [address] [place], [place] [id number] Tino Nuno MD Nausea and vomiting, unspecified vomiting type (Primary Dx); Gastritis and duodenitis Discharge Disposition: Discharge to home or self care from Last 3 Months Allergies Active Allergy Reactions Criticality Noted Date [...] (05/31/2022 11:10 AM CDT): Hearing test in [facility] White noise such as a loud fan or radio at night Avoid ear cleaning techniques Impacted cerumen of right ear 05/31/2022 Assessment & Plan (05/31/2022 9:11 PM CDT): Avoid ear cleaning techniques Immunizations Immunization Administration Dates Next Due Influenza, Trivalent, IM (MDV) 09/08/2016 Social History Tobacco Use Types Packs/Day Years [...] on file 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 pH may affect urinary stone formation. For example, urine pH below 6.0 may help reduce the tendency for calcium phosphate stones and pH greater than 6.0 may reduce the tendency for uric acid stone formation. Source: [facility] [employer] Current Interpretive Data was last revised on [...] Final Result [facility] ([place]) 1 [facility] Department [place] [address] * CT Chest Abdomen Pelvis W Contrast [...] Recent guidelines by the Fleischner Society (Radiology 561215,2017) divides patient into low vs. high risk [...] immunosuppression, or patients with known primary cancer. http://pubs.rsna.org/doi/pdf/10.1148/radiol.9214560488 THIS IS AN ELECTRONICALLY VERIFIED FINAL REPORT 02/21/2025 4:50 PM - Electronically signed by Akira Mcleod M.D. BS: CECILY Report ID: [id number] Reading Location: [place] [address] Procedure Note Akira Mcleod MD - 02/21/2025 [...] Recent guidelines by the Fleischner Society (Radiology 395257,2017)divides patient into low vs. high risk (for [...] immunosuppression, or patients with known primary cancer. http://pubs.rsna.org/doi/pdf/10.1148/radiol.2458231328 THIS IS AN ELECTRONICALLY VERIFIED FINAL REPORT 02/21/2025 4:50 PM - Electronically signed by Akira Mcleod M.D. BS: BS Report ID: [id number] Reading Location: [place] [address] Tino Nuno MD IMG CT PROCEDURES Final Res ult * Sepsis Lactate w/ Reflex (02/21/2025 3:03 PM CDT) Pathologist [facility] Sepsis Lactate 1.1 0.7 - 2.0 mmol/L Blood 02/21/2025 3:03 PM CDT 02/21/2025 3:07 PM CDT Tino Nuno MD LAB BLOOD ORDERABLES Final Result [facility] [place] 1 [facility] Department [place] [address] * PSA screen (02/21/2025 3:03 PM CDT) PSA-Total 5.23 <=6.20 ng/mL Comment: Interpretive Data AGE SEX REFERENCE INTERVAL 0 minutes-150 years Female None 0 minutes-49 years Male None 50-59 years Male 0-3.90 60-69 years Male 0-5.40 70-79 years Male 0-6.20 80-150 years Male 0-6.20 The Sissy PSA Total assay procedure was used. Results from different manufacturers or methods may not be comparable. Serial testing should be performed using the same method. Current interpretive data last revised 22. Blood 02/21/2025 3:03 PM CDT 02/21/2025 3:07 PM CDT Tino Nuno MD LAB BLOOD ORDERABLES Final Result [facility]BOSE ([place]) 1 [facility] [place] [address] * Protime-INR (02/21/2025 3:03 PM CDT) PT 12.4 9.7 - 13.0 sec [facility] ([place]) INR 1.14 0.90 - 1.20 [facility] ([place]) Comment: Interpretive data Oral anticoagulant therapeutic ranges: Venous thromboembolism prophylaxis or treatment: 2.0-3.0 CARDIOLOGY Standard range: 2.0-3.0 High-intensity range: 2.5-3.5 Refer to indication-specific guidelines for appropriate target ranges for prosthetic heart valve replacement. Current interpretive data was last revised on 2019. Blood 02/21/2025 3:03 PM CDT 02/21/2025 3:07 PM CDT Tino Nuno MD LAB BLOOD ORDERABLES Final Result [facility] MAR[facility]BOSE ([place]) 1 [facility] [place] [address] * Lipase (02/21/2025 3:03 PM CDT) Lipase 65 10 - 99 Units/L Blood 02/21/2025 3:03 PM CDT 02/21/2025 3:07 PM CDT Tino Nuno MD LAB BLOOD ORDERABLES Final Result [facility]BOSE ([place]) 1 [facility] Department [place] [address] * eGFR (02/21/2025 1:53 PM CDT) Pathologist [facility] eGFR >90 >=60 mL/min/1. 73 m2 Comment: [...] LAB BLOOD ORDERABLES Final Result [facility] ([place]) 1 [facility] Department [place] [address] * Differential, auto (02/21/2025 1:53 PM CDT) Pathologist [facility] Neutrophil abs 6.10 1.50 - 6.50 K/cumm [...] Neutrophil pct 77.3 % [facility] ([place]) Comment: Interpretive Data Percent cell count reference [...] BLOOD ORDERABLES Final Result [facility]BOSE ([place]) 1 [facility] Department of Laboratories [place], [place] [id number] * CBC with auto differential (02/21/2025 1:53 PM CDT) WBC 7.88 3.80 - 9.90 K/cumm Hgb 14.9 13.0 - 17.5 g/dL [facility] ([place]) Hct 44.0 38.9 - 50.3 % [facility] ([place]) Plt 188 150 - 400 K/cumm [facility] ([place]) MPV 11.2 9.1 - 12.3 fL [facility] ([place]) RBC 4.60 4.30 - 5.80 M/cumm [facility] ([place]) MCV 95.7 81.3 - 96.4 fL [facility] ([place]) MCH 32.4 27.1 - 33.3 pg [facility] ([place]) MCHC 33.9 32.3 - 35.7 g/dL [facility] ([place]) RDW CV 13.2 11.1 - 14.9 % [facility] ([place]) RDW SD 46.5 35.7 - 48.1 fL [facility] ([place]) NRBC abs 0.00 0.00 - 0.01 K/cumm [facility] ([place]) Blood Venous blood specimen / Unknown 02/21/2025 1:53 PM CDT 02/21/2025 1:55 PM CDT Tino Nuno MD LAB BLOOD ORDERABLES Final Result [facility] ([place]) 1 [facility] Department of Laboratories [place] [id number] * Comprehensive metabolic panel (02/21/2025 1:53 PM CDT) Sodium 141 135 - 145 mmol/L Potassium, pl 4.5 3.3 - 4.9 mmol/L [facility] ([place]) Chloride 103 97 - 110 mmol/L [facility] ([place]) CO2 27 22 - 32 mmol/L [facility] ([place]) Anion gap 11 2 - 15 mmol/L [facility] ([place]) BUN 19 6 - 25 mg/dL [facility] ([place]) Creatinine 0.80 0.80 - 1.30 mg/dL [facility] ([place]) Glucose 90 70 - 199 mg/dL [facility] ([place]) Comment: Interpretive Data Fasting glucose >/= [...] Final Result [facility] ([place]) 1 [facility] Department [place] [address] from Last 3 Months Insurance [facility] MEDICARE ADVANTAGE [facility] MEDICARE Address[facility] [address] [place] [address] [facility] HMO MEDICARE [facility] Address: [address] [address] [place] [address] [facility] MEDICARE ADVANTAGE [facility] [place] [address] Advance Directives For more information, please contact: [phone] * Full Code (Latest Code Status on File) Date Activated Date Inactivated Comments 01/29/2019 9:57 AM 01/29/2019 2:49 PM Care Teams Occupational Physician Relationship Specialty Start Date End Date Abraham Toledo MD PCP - General Family Practice 10/10/23
== END 2025-03-17 08:54 | disposition home or self-care (01) ==
PROVIDERS: PCP Nurse Practitioner Adult Health; Visit Provider Nurse Practitioner Adult Health
DX: M24.812 Other specific joint derangements of left shoulder, not elsewhere classified (principal); M19.012 Primary osteoarthritis, left shoulder; Z96.651 Presence of right artificial knee joint
CPT/HCPCS: 73030; 73564

== ENCOUNTER 2025-07-21 14:00 | Outpatient (CLI) | payer MEDICARE, SELFPAY ==
--- OUTSIDE RECORDS SUMMARY | 2025-07-21 17:28 | XMS_ITS | Encounter Summary ---
Author Organization [facility] Address [address] [place] [address] Phone Care Team Providers Care Product Safety Specialist Name Role Phone Ted Phelps MD Primary Care Provider Drew Cat DO Unavailable [phone] Cassie Ramirez CAMPAIGN WORKER, PARTS FABRICATOR Unavailable [phone] Radha Guevara CAMPAIGN WORKER, PARTS FABRICATOR Unavailable Abraham Toledo MD Primary Care Provider Reason for Visit * Reason Comments Medication Refill Encounter Details Date Type Department Care Team (Late st Contact Info) Description 02/06/2021 Refill [facility] - Family [facility] [address] [place] [address] Ktahy Jones, [facility] [address] [place] [address] Medication Refill Social History Tobacco Use Types Packs/Day Years Used Date Smoking Tobacco: Former Cigarettes 3 5 0 03/20/1962 - 03/20/1967 Smokeless Tobacco: Never Alcohol Use Standard Drinks/Week Comments No 0 (1 standard drink = 0.6 oz pure alcohol) 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 No / Unsure 02/03/2021 9:21 AM CDT documented as of this encounter Plan of Treatment Not on file documented as of this encounter Visit Diagnoses Diagnosis Anxiety Anxiety state, unspecified documented in this encounter Additional Health Concerns Assessment Noted Time PHQ-9 Depression Total Score: 0 10/02/19 20 10:05 AM EPIC CUPID SPECIALISTS documented as of this encounter Care Teams Product Safety Specialist Relationship Specialty Start Date End Date Ted Phelps MD [address] [address] PCP - General Family Medicine 10/29/15 01/04/23 Abraham Toledo MD [address] [address] PCP - General Family Medicine 01/05/23 Drew Cat DO [address] [address] Gastroenterology 04/05/16 Cassie Ramirez APRN, PARTS FABRICATOR #[address] [address] Nurse Practitioner Advanced Practice Nurse 04/05/16 Radha Guevara APRN, PARTS FABRICATOR #[address] [address] Nurse Practitioner Advanced Practice Nurse 04/05/16 documented as of this encounter
--- OUTSIDE RECORDS SUMMARY | 2025-07-21 17:28 | XMS_ITS | Encounter Summary ---
Author Organization [facility] Address [address] [place] [address] Phone Care Team Providers Care Admin Prog Coord Name Role Phone Ted Phelps MD Primary Care Provider Drew Cat DO Unavailable [phone] Cassie Ramirez ADZ WORKER, PICKER MACHINE OPERATOR Unavailable Radha Guevara ADZ WORKER, PICKER MACHINE OPERATOR Unavailable Abraham Toledo MD Primary Care Provider [phone] Reason for Visit * Reason Onset Date Comments Medication Refill 01/12/2021 Encounter Details Date Type Department Care Team (Late st Contact Info) Description 01/12/2021 Refill [facility] - Family Medicine [facility] [address] [place] [address] Kathy Jones, [facility] [address] [place] [address] Medication Refill Social History Tobacco Use Types [...] 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 No / Unsure 01/12/2021 8:14 AM CDT documented as of this encounter Miscellaneous Notes * Telephone Encounter - Desiree Valle RN - 01/13/2021 9:15 AM CDT Kathy, Do you want to renew this medication for patient? Right now the quantity is for a 10 days supply based on SIG. * Telephone Encounter - Hollie Underwood RN - 01/12/2021 9:30 AM CDT This was sent in on 12/23 so he is not due yet. * Telephone Encounter - Destiny Langley - 01/12/2021 9:01 AM CDT Pt came in today wanted to get a refill on his Propranolol 10 mg. [facility] in [place]. Please Advise. documented in this encounter Plan of Treatment Not on file documented as of this encounter Visit Diagnoses Diagnosis Anxiety Anxiety state, unspecified documented in this encounter Additional Health Concerns Assessment Noted Time PHQ-9 Depression Total Score: 0 10/02/19 20 10:05 AM ENVIRONMENTAL PROJECTS ADVISOR documented as of this encounter Care Teams Admin Prog Coord Relationship Specialty Start Date End Date Ted Phelps MD [address] [address] PCP - General Family Medicine 10/29/15 01/04/23 Abraham Toledo MD #[address] [address] PCP - General Family Medicine 01/05/23 Drew Cat DO #[address] [address] Gastroenterology 04/05/16 Cassie Ramirez APRN, PICKER MACHINE OPERATOR #[address] [address] Nurse Practitioner Advanced Practice Nurse 04/05/16 Radha Guevara APRN, PICKER MACHINE OPERATOR #[address] [address] Nurse Practitioner Advanced Practice Nurse 04/05/16 documented as of this encounter
--- OUTSIDE RECORDS SUMMARY | 2025-07-21 17:28 | XMS_ITS | Encounter Summary ---
Author Organization [facility] Address [address] [place] [address] Phone Care Team Providers Care Farm Mortgage Agent Name Role Phone Drew Cat DO Unavailable [phone] Cassie Ramirez DENTAL NURSE, WILDLIFE MANAGEMENT PROFESSOR Unavailable Radha Guevara DENTAL NURSE, WILDLIFE MANAGEMENT PROFESSOR Unavailable Abraham Toledo MD Primary Care Provider Reason for Visit * Reason Comments Medication Refill Encounter Details Date Type Department Care Team (Late st Contact Info) Description 09/01/2023 Refill [facility] UR[facility]Y [address] [place] [address] Marcos Alston, DENTAL NURSE, WILDLIFE MANAGEMENT PROFESSOR [address] [place] [address] Medication Refill Social History Tobacco Use Types [...] 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 CONTROL OFFICER documented in this encounter Plan of Treatment Not on file documented as of this encounter Visit Diagnoses Diagnosis Urinary frequency documented in this encounter Additional Health Concerns Assessment Noted Time PHQ-9 Depression Total Score: 0 10/02/19 10:05 AM DOG CONTROL OFFICER documented as of this encounter Care Teams Farm Mortgage Agent Relationship Specialty Start Date End Date Abraham Toledo MD PCP - General Family Medicine 01/05/23 Drew Cat DO Gastroenterology 04/05/16 Cassie Ramirez APRN, WILDLIFE MANAGEMENT PROFESSOR Nurse Practitioner Advanced Practice Nurse 04/05/16 Radha Guevara APRN, WILDLIFE MANAGEMENT PROFESSOR Nurse Practitioner Advanced Practice Nurse 04/05/16 documented as of this encounter
--- OUTSIDE RECORDS SUMMARY | 2025-07-21 17:28 | XMS_ITS | Clinical Summary ---
Author Organization [facility] Address [address] [place] [address] Care Team Providers Care Program Management Professional Name Role Phone Unavailable Primary Care Provider Unavailabl e Source Comments [facility],non-owned Affiliates and Associated Physician Practices is amultiple site organization consisting of ambulatory clinics and hospital sitesin [place], [place], [place] and [place]. This disclosure is being madepursuant to the Care Everywhere program and may not contain all information available regarding this patient. Last updated 18.[facility] Allergies Active Allergy Reactions Criticality Noted Date [...] yrs (1 - 1-dose 75+ series) 2022 DEPRESSION SCREENING 10/01/2024 MEDICARE AWV CALENDAR YEAR 2024 COVID-19 VACCINE (1 - 2023-2 5 season) 2025 INFLUENZA VACCINE (#1) 2025 HEPATITIS B VACCINE Aged Out No [...] patient's age to complete this topic Insurance [facility] MANAGED MEDICARE ADV
--- OUTSIDE RECORDS SUMMARY | 2025-07-21 17:28 | XMS_ITS | Encounter Summary ---
Author Organization [facility] Address [address] [place] [address] Phone Care Team Providers Care Bobbin Disker Name Role Phone Drew Cat DO Unavailable [phone] Cassie Ramirez STITCHER STANDARD MACHINE, CRIMPING MACHINE OPERATOR Unavailable Radha Guevara STITCHER STANDARD MACHINE, CRIMPING MACHINE OPERATOR Unavailable Abraham Toledo MD Primary Care Provider Reason for Visit * Reason Comments Medication Refill Encounter Details Date Type Department Care Team (Late st Contact Info) Description 10/01/[address] [facility] [address] [place] [address] Marcos Alston, STITCHER STANDARD MACHINE, CRIMPING MACHINE OPERATOR [address] [place] [address] Medication Refill Social History Tobacco Use Types [...] 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 SFILL TECHNICIAN * Telephone Encounter - Lavern Centeno - 10/04/2023 11:19 AM CST Left another message for pt to call back. SFILL TECHNICIAN * Telephone Encounter - Lavern Centeno - 10/03/2023 2:47 PM CST Left message for pt to call back. SFILL TECHNICIAN documented in this encounter Plan of Treatment Not on file documented as of this encounter Visit Diagnoses Diagnosis Urinary frequency documented in this encounter Additional Health Concerns Assessment Noted Time PHQ-9 Depression Total Score: 0 10/02/19 10:05 AM TRANSFILL TECHNICIAN documented as of this encounter Care Teams Bobbin Disker Relationship Specialty Start Date End Date Abraham Toledo MD PCP - General Family Medicine 01/05/23 Drew Cat DO Gastroenterology 04/05/16 Cassie Ramirez APRN, CRIMPING MACHINE OPERATOR Nurse Practitioner Advanced Practice Nurse 04/05/16 Radha Guevara APRN, CRIMPING MACHINE OPERATOR Nurse Practitioner Advanced Practice Nurse 04/05/16 documented as of this encounter
--- OUTSIDE RECORDS SUMMARY | 2025-07-21 17:28 | XMS_ITS | Encounter Summary ---
Author Organization [facility] Address [address] [place] [address] Phone Care Team Providers Care Home Appliance Technician Name Role Phone Ted Phelps MD Primary Care Provider Drew Cat DO Unavailable [phone] Cassie Ramirez TOGGLE PRESS FOLDER AND FEEDER, PREVENTIVE MAINTENANCE ENGINEER Unavailable Radha Guevara APRN, PREVENTIVE MAINTENANCE ENGINEER Unavailable Abraham Toledo MD Primary Care Provider [phone] Reason for Visit * Reason Comments Medication Refill Encounter Details Date Type Department Care Team (Late st Contact Info) Description 08/16/2022 Refill [facility] [address] [place] [address] Regan Siddiqui MD [address] [place] [address] Medication Refill Social History Tobacco Use Types [...] 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 Not on file Not on file documented as of this encounter Plan of Treatment Not on file documented as of this encounter Visit Diagnoses Diagnosis Urinary frequency documented in this encounter Additional Health Concerns Assessment Noted Time PHQ-9 Depression Total Score: 0 10/02/19 20 10:05 AM FIRM ADMINISTRATOR documented as of this encounter Care Teams Home Appliance Technician Relationship Specialty Start Date End Date Ted Phelps MD #[address] [address] PCP - General Family Medicine 10/29/15 01/04/23 Abraham Toledo MD #[address] [address] PCP - General Family Medicine 01/05/23 Drew Cat DO #[address] [address] Gastroenterology 04/05/16 Cassie Ramirez APRN, PREVENTIVE MAINTENANCE ENGINEER #[address] [address] Nurse Practitioner Advanced Practice Nurse 04/05/16 Radha Guevara APRN, PREVENTIVE MAINTENANCE ENGINEER #[address] [address] Nurse Practitioner Advanced Practice Nurse 04/05/16 documented as of this encounter
--- OUTSIDE RECORDS SUMMARY | 2025-07-21 17:28 | XMS_ITS | Encounter Summary ---
Author Organization [facility] Address [address] [place] [address] Phone Care Team Providers Care Drum Maker Name Role Phone Drew Cat DO Unavailable [phone] Cassie Ramirez INCOME TAX ADMINISTRATOR, LOCAL AREA NETWORK SYSTEMS ADMINSTRATOR Unavailable Radha Guevara INCOME TAX ADMINISTRATOR, LOCAL AREA NETWORK SYSTEMS ADMINSTRATOR Unavailable Abraham Toledo MD Primary Care Provider [phone] Reason for Visit * Reason Comments Medication Refill Encounter Details Date Type Department Care Team (Late st Contact Info) Description 11/05/2023 Refill [facility] [address] [place] [address] Marcos Alston, INCOME TAX ADMINISTRATOR, LOCAL AREA NETWORK SYSTEMS ADMINSTRATOR [address] [place] [address] Medication Refill Social History Tobacco Use Types [...] 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 Requested Prescriptions Pending Prescriptions Disp Refills oxybutynin (DITROPAN-XL) 10 MG TABLET SR 24 HR [Pharmacy Med Name: OXYBUTYNIN CL ER 10 MG TABLET] 30 Tablet 0 Sig: TAKE 1 TABLET BY MOUTH EVERY DAY Urinary Anticholinergics Protocol Failed - 11/05/2023 8:00 AM Failed - Visit with relevant provider in past 12 months or upcoming 90 days Recent Visits No visits were found meeting these conditions. Showing recent visits within past 365 days and meeting all other requirements Future Appointments No visits were found meeting these conditions. Showing future appointments within next 90 days and meeting all other requirements Failed - GFR greater than or equal to 30 in past 12 months GFR, EST. NONAFRICAN Date Value Ref Range Status 11/09/2021 >60 >=60 Final ROOM SUPERVISOR documented in this encounter Plan of Treatment Not on file documented as of this encounter Visit Diagnoses Diagnosis Urinary frequency documented in this encounter Additional Health Concerns Assessment Noted Time PHQ-9 Depression Total Score: 0 10/02/19 20 10:05 AM COOK ROOM SUPERVISOR documented as of this encounter Care Teams Drum Maker Relationship Specialty Start Date End Date Abraham Toledo MD PCP - General Family Medicine 01/05/23 Drew Cat DO Gastroenterology 04/05/16 Cassie Ramirez APRN, LOCAL AREA NETWORK SYSTEMS ADMINSTRATOR Nurse Practitioner Advanced Practice Nurse 04/05/16 Radha Guevara APRN, LOCAL AREA NETWORK SYSTEMS ADMINSTRATOR Nurse Practitioner Advanced Practice Nurse 04/05/16 documented as of this encounter
--- OUTSIDE RECORDS SUMMARY | 2025-07-21 17:28 | XMS_ITS | Clinical Summary ---
Author Organization [facility] Address [address] [place] [address] Phone Care Team Providers Care Patient Service Technician Pst Name Role Phone Drew Cat DO Unavailable Cassie Ramirez APRN, ETYMOLOGY PROFESSOR Unavailable [phone] Radha Guevara APRN, ETYMOLOGY PROFESSOR Unavailable Abraham Toledo MD Primary Care Provider Allergies Active Allergy Reactions Criticality Noted Date Comments Meperidine Nausea,Vomiting 10/29/2015 Medications APPLE CIDER VINEGAR PO Take by mouth. Active [place]-3 Fatty Acids (OMEGA-3 FISH OIL PO) Take by mouth. Active Multiple Vitamins-Mineral s (OCUVITE ADULT 50+ PO) Take 1 Tablet by mouth daily. Active Cholecalciferol (VITAMIN D-3 PO) Take by mouth. Active Cyanocobalamin (VITAMIN B-12 PO) Take by mouth. Active QUERCETIN PO Take by mouth. Active propranolol (INDERAL) 10 MG TabletIndication s:Anxiety TAKE 1 TABLET BY MOUTH 3 TIMES DAILY NEEDED (ANXIETY). 270 Tablet 1 05/01/2022 Active tamsulosin (FLOMAX) 0.4 MG Capsule Take 0.4 mg by mouth daily. Active oxybutynin (DITROPAN-XL) 10 MG TABLET SR 24 HRIndications:Ur inary frequency TAKE 1 TABLET BY MOUTH EVERY DAY 30 Tablet 10/09/2023 Active Active Problems Problem Noted Date Diagnosed Date Deep vein thrombosis (DVT) of right lower extrem ity 10/13/2019 Gastroenteritis 09/26/2018 Benign essential tremor 01/23/2018 Elevated PSA, less than 10 ng/ml 07/26/2017 Screening for prostate cancer 01/24/2016 Cellulitis of right lower extremity 11/17/2015 HTN (hypertension) 10/29/2015 Arthritis 10/29/2015 Physical exam 10/29/2015 Immunizations Immunization Administration Dates Next Due Influenza Vaccine 07/18/2017,09/08/2016 Influenza Vaccine, Quadrivalent, PF 09/11/2019 PUR PCV-13 10/29/2015 Pneumococcal Vaccine - 13 Valent 10/29/2015 Pneumococcal Vaccine Adult - 23 Valent 3 Family History Medical History Relation Name Comments Heart Attack Father Hypertension Father Congestive Heart Failure Mother Heart Attack Mother Hypertension Mother Relation Name Status Comments Father Mother Social History Tobacco Use Types Packs/Day Years Used Date Smoking Tobacco: Former Cigarettes 3 5 0 03/20/1962 - 03/20/1967 Smokeless Tobacco: Never Tobacco Cessation:Counseling Given: No Alcohol Use Standard Drinks/Week Comments No 0 [...] 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 Not on file Not on file Last Filed Vital Signs Vital Sign Reading Time Taken Comments Blood Pressure 130/76 06/28/2022 8:56 AM CDT Pulse 52 06/28/2022 8:56 AM CDT Temperature 36.3 C (97.4 F) 06/28/2022 8:56 AM CDT Respiratory Rate 14 06/28/2022 8:56 AM CDT Oxygen Saturation 99% 06/28/2022 8:56 AM CDT Inhaled Oxygen Concentration - - Weight 93.2 kg (205 lb 8 oz) 06/28/2022 8:56 AM CDT Height 175.3 cm (5' 9) 06/28/2022 8:56 AM CDT Body Mass Index 30.35 06/28/2022 8:56 AM CDT Plan of Treatment Health Maintenance Due Date Last Done Comments Hepatitis C Virus (HCV) Screening 1945 TdaP Immunization 1945 Zoster Immunization (1 of 2) 1997 Medicare Initial AWV [id number] 06/01/2013 Respiratory Syncytial Virus (RSV) Immunization (Adult) (1 - 1-dose 75+ series) 2022 Influenza Immunization (#1) 06/01/202508/31, 07/18/2017, 09/08/2016 SARS-COV-2 Immunization (1 - 2023- season) 2025 Pneumococcal Immunization (5 0+ years) Completed 10/29/2015, 10/29/2015, 07/10/2013 Pneumococcal Immunization Combined Discontinued 10/29/2015, 10/29/2015, 07/10/2013 Colonoscopy Discontinued 02/18/2019, 03/20/2016 Colorectal Cancer Screening Discontinued Cologuard Discontinued Hepatitis B Immunization Aged Out No longer eligible based on patient's age to complete this topic Human Papillomavirus (HPV) Immunization Aged Out No longer eligible based on patient's age to complete this topic Immunochemical Fecal Occult Blood Discontinued Meningococcal Immunization (ACWY) Aged Out No longer eligible based on patient's age to complete this topic Rotavirus Immunization Aged Out No lo nger eligible based on patient's age to complete this topic Insurance MEDICARE C [employer] on file Care Teams Patient Service Technician Pst Relationship Specialty Start Date End Date Abraham Toledo MD PCP - General Family Medicine 01/05/23 Drew Cat DO Gastroenterology 04/05/16 Cassie Ramirez APRN, ETYMOLOGY PROFESSOR Nurse Practitioner Advanced Practice Nurse 04/05/16 Radha Guevara, SHORTY, ETYMOLOGY PROFESSOR Nurse Practitioner Advanced Practice Nurse 04/05/16
--- OUTSIDE RECORDS SUMMARY | 2025-07-21 17:29 | XMS_ITS | Encounter Summary ---
Author Organization [facility] Address [address] [place] [address] Phone Care Team Providers Care Cylindrical Mixer Name Role Phone Ted Phelps MD Primary Care Provider [phone] Drew Cat DO Unavailable [phone] Cassie Ramirez CLOTH MERCERIZER BACK TENDER, HEALTH CARE LIAISON Unavailable [phone] Radha Guevara CLOTH MERCERIZER BACK TENDER, HEALTH CARE LIAISON Unavailable Abraham Toledo MD Primary Care Provider [phone] Reason for Visit * Reason Comments Medication Refill Encounter Details Date Type Department Care Team (Late st Contact Info) Description 09/15/2020 Refill [facility] [address] [place], [place] [id number] Ted Phelps MD [address] [address] Medication Refill Social History Tobacco Use Types [...] 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 How soon does patient require a follow up visit? Per nursing clinical judgement, provider to review and approve the medication(s) order(s) if appropriate. Requested Prescriptions Pending Prescriptions Disp Refills lisinopril (PRINIVIL, ZESTRIL) 20 MG Tablet [Pharmacy Med Name: LISINOPRIL 20 MG TABLET] 90 Tab 0 Sig: TAKE 1 TABLET BY MOUTH EVERY DAY Cardiovascular: MARIELY Inhibitors Passed - 09/15/2020 1:23 AM Passed - Valid encounter within last 12 months Past Office Visits Recent Outpatient Visits 11 months ago Deep vein thrombosis (DVT) of right lower extremity, unspecified chronicity, unspecified vein (HCC) [facility] - Kathy Oliveros PAC 11 months ago Deep vein thrombophlebitis of leg, right (HCC) [facility] - Ted Lee MD 11 months ago Leg edema, right [facility] Kathy Oliveros PAC 1 year ago Benign essential tremor [facility] Ted Lee MD 1 year ago Essential hypertension [facility] Ted Lee MD Upcoming Appointments [facility] - Recent and Past Visits Recent Visits Date Type Provider Dept 10/13/19 Office Visit Kathy Jones PAC [facility] 10/03/19 Office Visit Ted hPelps MD [facility] 10/02/19 Office Visit Kathy Jones PAC [facility] 09/11/19 Office Visit Ted Phelps MD [facility] Ari Showing recent visits within past 460 days with a meds authorizing provider and meeting all other requirements Future Appointments No visits were found meeting these conditions. Showing future appointments within next 90 days with a meds authorizing provider and meeting all other requirements Passed - Last BP in normal range BP Readings from Last 1 Encounters: 10/13/19 124/80 R SUPPORT TECHNICIAN documented in this encounter Plan of Treatment Not on file documented as of this encounter Visit Diagnoses Diagnosis Essential hypertension- Primary Unspecified essential hypertension documented in this encounter Additional Health Concerns Assessment Noted Time PHQ-9 Depression Total Score: 0 10/02/19 20 10:05 AM DONOR SUPPORT TECHNICIAN documented as of this encounter Care Teams Cylindrical Mixer Relationship Specialty Start Date End Date Ted Phelps MD [address] [address] PCP - General Family Medicine 10/29/15 01/04/23 Abraham Toledo MD [address] [address] PCP - General Family Medicine 01/05/23 Drew Cat DO [address] [address] Gastroenterology 04/05/16 Cassie Ramirez APRN, HEALTH CARE LIAISON [address] [address] Nurse Practitioner Advanced Practice Nurse 04/05/16 Radha Guevara APRN, HEALTH CARE LIAISON [address] [address] Nurse Practitioner Advanced Practice Nurse 04/05/16 documented as of this encounter
--- OUTSIDE RECORDS SUMMARY | 2025-07-21 17:29 | XMS_ITS | Clinical Summary ---
Author Organization [facility] Address [address] [place] [address] Care Team Providers Care Well Testing Operator Name Role Phone Abraham Toledo MD Primary Care Provider [phone] Allergies Active Allergy Reactions Criticality Noted Date Comments Hydrocodone Nausea & Vomiting Low 11/01/2023 Meperidine Nausea & Vomiting Low 01/29/2019 Medications magnesium oxide (MAG-OX) 415 mg (250 [...] (81 mg total) by mouth daily Active lidocaine (LIDODERM) 5 % Place 1 patch on the skin daily for 12 hours for 15 days Remove & discard patch within 12 hours or as directed by . 30 patch Active Additional Information Patient not taking.Reported on 2025 vitamin b complex (Vitamins B Complex) tablet Take 1 tablet by mouth daily Active Active Problems Problem Noted Date Diagnosed Date Elevated prostate specific antigen (PSA) 025 Sensorineural hearing loss (SNHL) of both ears 0 05/31/2022 Assessment & Plan (05/31/2022 11:10 AM CDT): Hearing test in [facility] White noise such as a loud fan or radio at night Avoid ear cleaning techniques Impacted cerumen of right ear 05/31/2022 Assessment & Plan (05/31/2022 9:11 PM CDT): Avoid ear cleaning techniques Encounters Date Type Department Care Team Description 07/04/2025 10:57 AM CDT - 07/04/2025 11:59 PM CDT Hospital Encounter [facility] [address] [place] [address] Left rotator cuff tear arthropathy; Primary osteoarthritis of left shoulder; Biceps tendonitis on left Discharge Disposition: Discharge to home or self care 07/03/2025 Telephone [facility] [address] [place] [address] Angi Bansal 06/29/2025 Telephone [facility] [address] [place] [phone] Gali Ramey MA Ct shoulder- no auth 2025 11:30 AM CDT Office Visit [facility] [address] [place] [phone] German Harrison MD Left rotator cuff tear arthropathy (Primary Dx) 2025 Orders Only [facility] [address] [place] [phone] German Harrison MD Left rotator cuff tear arthropathy (Primary Dx); Primary osteoarthritis of left shoulder; Biceps tendonitis on left 2025 Telephone [facility] [address] [place] [phone] Ted Harrison DO surgery clearance- Left shoulder 2025 Orders Only [facility] [address] [place] [phone] German Harrison MD Pre-op testing (Primary Dx); Left rotator cuff tear arthropathy; Primary osteoarthritis of left shoulder; Biceps tendonitis on left 05/14/2025 3:15 PM CDT Office Visit [facility] [address] [place] [address] [address] [place] [address] Tiffany Onofre PA Left rotator cuff tear arthropathy (Primary Dx); Primary osteoarthritis of left shoulder; Biceps tendonitis on left 05/14/2025 7:56 AM CDT - 05/14/2025 11:59 PM CDT Hospital Encounter [facility]oped[facility] and [facility] Medicine [address] [facility] [address] [place] [address] Discharge Disposition: Discharge to home or self [...] making you feel afraid or unsafe? 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 Gender Identity Not on file Sexual Orientation Not on file Obstetrics History Last Filed Vital Signs Vital Sign Reading Time Taken Comments Blood Pressure 171/93 2025 11:49 AM CDT Pulse 76 2025 11:49 AM CDT Temperature 36.8 C (98.3 F) 03/21/2025 11:49 AM CDT Respiratory Rate 19 03/21/2025 11:4 9 AM CDT Oxygen Saturation 97% 03/21/2025 2:15 PM CDT Inhaled Oxygen Concentration - - Weight 77.4 kg (170 lb 11.2 oz) 025 11:49 AM CDT Height 174 cm (5' 8.5) 2025 11:4 9 AM CDT Body Mass Index 25.58 2025 11:49 AM CDT Plan of Treatment Health Maintenance Due Date Last Done Comments Depression Screening 1945 Fall Risk Assessment 1945 Hepatitis C Screening 1945 DTaP/Tdap/Td Vaccine (1 - Tdap) 1958 Hepatitis B Screening 1965 Zoster Vaccine (1 of 2) 1997 Well Visit 65+ 2012 Influenza Vaccine (#1) 2025 9, 07/18/2017, 09/08/2016 Pneumococcal vaccine 65+ Completed 10/29/2015, 07/01 Abdominal Aortic Aneurysm (A AA) Screen Completed 02/21/2025 Procedures Procedure Name Priority Date/Time Associated Diagnosis Comments CT SHOULDER LEFT WO CONTRAST Schedule Routine, Read Routine (OP Routine) 07/04/2025 11:26 AM CDT Left rotator cuff tear arthropathy Primary osteoarthritis of left shoulder Biceps tendonitis on left XR SHOULDER LEFT 2 OR MORE VIEWS Routine 05/14/2025 3:26 PM CDT Left rotator cuff tear arthropathy CT CHEST ABDOMEN PELVIS W CONTRAST ED 02/21/2025 4:02 PM CDT from Last 3 Months or Most Recently Relevant to Health Maintenance Results * CT Shoulder Left WO Contrast (07/04/2025 11:26 AM CDT) Anatomical Region Laterality Modality Upper Extremities Left Computed Tomog megan 07/05/2025 11:3 3 AM CDT Narrative 07/05/2025 11:48 AM CDT EXAM DESCRIPTION: CT SHOULDER LEFT WO CONTRAST REASON FOR STUDY: Left shoulder osteoarthritis Pain, pre-op, Arthrex TECHNIQUE: Multidetector CT scan of the left shoulder was performed. coronal and sagittal images were reconstructed. Dose modulation adjustment of the mA and/or kV has been performed per [facility] protocols according to patient size and indication. COMPARISON: CT 03/21/2025 FINDINGS: CT images confirm severe left rotator cuff arthropathy with anterosuperior subluxation of the humeral head. Remodeling of the undersurface of the acromion is present. Large left shoulder effusion is present with debris, loose bodies and decompression. Severe acromioclavicular joint osteoarthritis. No acute fracture identified. Sternoclavicular joint osteoarthritis is present. Chondrocalcinosis is present. Limited evaluation of the left lung is normal. Old granulomatous disease is present. Thoracic degenerative disc disease is present. IMPRESSION: 1. Severe left rotator cuff arthropathy with anterosuperior subluxation of the humeral head and remodeling of the undersurface of the acromion. 2. Large left shoulder effusion with debris, loose bodies and decompression. 3. Severe left acromioclavicular joint osteoarthritis. THIS IS AN ELECTRONICALLY VERIFIED FINAL REPORT 07/05/2025 11:48 AM - Electronically signed by Ted Mark M.D. MF: [email or web address] Report ID: [id number] Reading Location: [id number] Procedure Note Ted Mark MD - 07/05/2025 EXAM DESCRIPTION: CT SHOULDER LEFT WO CONTRAST REASON FOR STUDY: Left shoulder osteoarthritis Pain, pre-op, Arthrex TECHNIQUE: Multidetector CT scan of the left shoulder was performed. coronal and sagittal images were reconstructed. Dose modulation adjustment of the mA and/or kV has been performed per [facility] protocols according to patient size and indication. COMPARISON: CT 03/21/2025 FINDINGS: CT images confirm severe left rotator cuff arthropathy with anterosuperior subluxation of the humeral head. Remodeling of the undersurface of the acromion is present. Large left shoulder effusion is present with debris, loose bodies and decompression. Severe acromioclavicular joint osteoarthritis. No acute fractureidentified. Sternoclavicular joint osteoarthritis is present. Chondrocalcinosis is present. Limited evaluation of the left lung is normal. Old granulomatous diseaseis present. Thoracic degenerative disc disease is present. IMPRESSION: 1. Severe left rotator cuff arthropathy with anterosuperior subluxationof the humeral head and remodeling of the undersurface of the acromion. 2. Large left shoulder effusion with debris, loose bodies anddecompression. 3. Severe left acromioclavicular joint osteoarthritis. THIS IS AN ELECTRONICALLY VERIFIED FINAL REPORT 07/05/2025 11:48 AM - Electronically signed by Ted Mark M.D. MF: [email or web address] Report ID: [id number] Reading Location: [id number] German Hrarison MD IMG CT PROCEDURES Final Resu lt * XR Shoulder Left 2 or More Views (05/14/2025 3:26 PM CDT) Anatomical Region Laterality Modality Upper Extremities, Shoulder Left Digi george Radiography Narrative 05/15/2025 11:23 AM CDT Views of the left shoulder reviewed interpreted today. No evidence of fracture. Advanced osteoarthritic changes noted at glenohumeral and AC joint space with [id number] changes subchondral sclerosis osteophyte formation. Superior subluxation of the humeral head also noted. Tiffany LOVE IMG XR PROCEDURES Flora l Result * CT Chest Abdomen Pelvis W Contrast [...] Recent guidelines by the Fleischner Society (Radiology 065576,2017) divides patient into low vs. high risk [...] immunosuppression, or patients with known primary cancer. http://pubs.rsna.org/doi/pdf/10.1148/radiol.4545754772 THIS IS AN ELECTRONICALLY VERIFIED FINAL REPORT 02/21/2025 4:50 PM - Electronically signed by Akira Mcleod M.D. BS: CECILY Report ID: [id number] Reading Location: [id number] Procedure Note Akira Mcleod MD - 02/21/2025 [...] Recent guidelines by the Fleischner Society (Radiology 264329,2017)divides patient into low vs. high risk (for [...] immunosuppression, or patients with known primary cancer. http://pubs.rsna.org/doi/pdf/10.1148/radiol.7243372409 THIS IS AN ELECTRONICALLY VERIFIED FINAL REPORT 02/21/2025 4:50 PM - Electronically signed by Akira Mcleod M.D. BS: CECILY Report ID: [id number] Reading Location: [place] [address] Tino Nuno MD IM CT PROCEDURES Final Res ult from Last 3 Months or Most Recently Relevant to Health Maintenance Insurance [facility] MEDICARE ADVANTAGE [facility] HMO MEDICARE [facility] MEDICARE ADVANTAGE [facility] MEDICARE ADVANTAGE Advance Directives For more information, please contact: [phone] * Full Code (Latest Code Status on File) Date Activated Date Inactivated Comments 01/29/2019 9:57 AM 01/29/2019 2:49 PM Care Teams Well Testing Operator Relationship Specialty Start Date End Date Abraham Toledo MD PCP - General Family Practice 10/10/23
--- OUTSIDE RECORDS SUMMARY | 2025-07-21 17:29 | XMS_ITS | Encounter Summary ---
Author Organization [facility] Address [address] [place] [address] Phone Care Team Providers Care Seafood Fisherman Name Role Phone Ted Phelps MD Primary Care Provider Drew Cat DO Unavailable [phone] Cassie Ramirez TELEGRAPH DISPATCHER, DENTAL PATIENT COORDINATOR Unavailable [phone] aRdha Guevara TELEGRAPH DISPATCHER, DENTAL PATIENT COORDINATOR Unavailable Abraham Toledo MD Primary Care Provider Reason for Visit * Reason Comments Medication Refill Encounter Details Date Type Department Care Team (Late st Contact Info) Description 03/05/2021 Refill [facility] - Family Medicine [facility] [address] [place] [address] Kathy Jones, [facility] [address] [place] [address] Medication Refill Social History Tobacco Use Types [...] 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 No / Unsure 02/24/2021 9:43 AM CDT documented as of this encounter Miscellaneous Notes * Telephone Encounter - Ted Phelps MD - 03/07/2021 12:05 PM CDT Prescription approved. Please call in * Telephone Encounter - Desiree Valle RN - 03/07/2021 12:00 PM CDT PRN medication requires review from provider Per nursing clinical judgement, provider to review and approve the medication(s) order(s) if appropriate. Requested Prescriptions Pending Prescriptions Disp Refills propranolol (INDERAL) 10 MG Tablet [Pharmacy Med Name: PROPRANOLOL 10 MG TABLET] 90 Tablet 0 Sig: TAKE 1 TABLET BY MOUTH 3 TIMES DAILY NEEDED (ANXIETY). Beta-Blockers Protocol Passed - 03/07/2021 12:00 PM Passed - BP on record in the past year Clinician-entered: BP Readings from Last 3 Encounters: 02/21/21 130/84 02/03/21 146/88 01/12/21 140/86 Patient-entered: No data recorded Passed - Visit with relevant provider in past 12 months or upcoming 90 days Recent Visits Date Type Provider Dept 12/29/20 Office Visit Ted Phelps MD [facility] 12/23/20 Office Visit Kathy Jones PAC [facility] Showing recent visits within past 365 days and meeting all other requirements Future Appointments No visits were found meeting these conditions. 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 documented as of this encounter Care Teams Seafood Fisherman Relationship Specialty Start Date End Date Ted Phelps MD [address] [address] PCP - General Family Medicine 10/29/15 01/04/23 Abraham Toledo MD [address] [address] PCP - General Family Medicine 01/05/23 Drew Cat DO [address] [address] Gastroenterology 04/05/16 Cassie Ramirez APRN, DENTAL PATIENT COORDINATOR [address] [address] Nurse Practitioner Advanced Practice Nurse 04/05/16 Radha Guevara APRN, DENTAL PATIENT COORDINATOR [address] [address] Nurse Practitioner Advanced Practice Nurse 04/05/16 documented as of this encounter
--- OUTSIDE RECORDS SUMMARY | 2025-07-21 17:29 | XMS_ITS | Continuity of Care Document ---
Author Organization [facility] Address [address] [facility] [address] [place] [address] Insurance Providers Payer Plan Claims Address Claims Phone Policy Number Group Number Relation Employer Guarantor Name Guarantor Guarantor Address Guarantor Phone [facility] [id number] Self Ricki Li 1945 [id number] [id number] Self Ricki Li 1945 [id number] [place] [address] [employer] tel:[phone] Self Ricki Li 1945 [id number] [place] [address] Problems Unknown Problems Results Test Result Date/Time Value / Unit Interp. Refere [facility] Range Lab Report Ricki [email or web address] Allergies, adverse reactions, alerts No known allergies and adverse reactions Medications No administered medications reported Vital Signs No vital signs reported Social History No smoking Hx information available
[2025-07-21 19:21] LABS: Hematocrit 42.4 % (42.0-52.0); Hemoglobin 14.0 g/dL (14.0-18.0); Mean Corpuscular HGB Conc 33.0 g/dl (32-36); Mean Corpuscular Hemoglobin 32.3 pg (26-34); Mean Corpuscular Volume 97.9 fl (80-100); Platelet Count Result 249 k/mm3 (150-375); Red Blood Count 4.33 M/mm3 (4.6-6.20); White Blood Count 6.6 K/mm3 (4.5-10.0)
[2025-07-21 19:28] LABS: Alanine Aminotransferase 31 U/L (6-50); Albumin Level 4.0 g/dL (3.5-5.1); Alkaline Phosphatase 106 U/L (38-126); Anion Gap 7 mmol/L (4-12); Aspartate Amino Transferase 79 U/L (17-59); Bilirubin,Total 1.0 mg/dL (0.2-1.3); Blood Urea Nitrogen 29 mg/dL (9-20); Calcium 9.1 mg/dL (8.4-10.2); Carbon Dioxide 26 mmol/L (22-30); Chloride 103 mmol/L (98-107); Cholesterol 167 mg/dL (0-200); Estimated Glomerular Filt Rate > 60; Glucose 85 mg/dL (65-110); HDL Direct 55 mg/dL; Potassium 4.1 mmol/L (3.4-5.0); Sodium 136 mmol/L (137-145); Total Protein 7.2 g/dL (6.3-8.2); Triglycerides 54 mg/dL (<150)
== END 2025-07-21 14:01 | disposition home or self-care (01) ==
LOC: ANHBWCLAB 14:01
PROVIDERS: PCP Nurse Practitioner Adult Health; Visit Provider Nurse Practitioner Adult Health
DX: E55.9 Vitamin D deficiency, unspecified (principal); I10 Essential (primary) hypertension
CPT/HCPCS: 36415; 80053; 80061; 82306; 85027